=== PATIENT | female | born 1945 | race Caucasian/White ===

== ENCOUNTER 2020-07-15 11:03 | Emergency (ER) | payer MEDICARE, SELFPAY ==
[2020-07-15 11:11] VITALS: BP 191/89; PULSE 60; RESP 18; TEMP 36.5; O2SAT 97; BMI 39.2
--- NOTE | 2020-07-15 11:55 | ED.EPISTAXIS ---
History of Present Illness General Chief Complaint: Epistaxis Stated Complaint: nose bleed Time Seen by Provider: 07/15/20 11:55 Source: patient Mode of arrival: ambulatory Limitations: no limitations History of Present Illness HPI Narrative: for the last month recurrent epistaxis that resolves at home Location: Yes right nares Onset/current episode: Yes hour(s) (4) Duration: Yes constant Pertinent past history: Yes history of previous nose bleed Context: Yes history of previous nose bleed and Yes warfarin use Treatment prior to arrival: Yes nose pinching and Yes head leaning forward Related Data Previous Rx's Medication Instructions Recorded amoxicillin-pot clavulanate 1 tab PO BID #3 tab 07/15/20 [Augmentin] hydrocodone-acetaminophen 1 tab PO Q6H PRN #12 tab 07/15/20 Allergies Allergy/AdvReac Type Severity Reaction Status Date / Time No Known Allergies Allergy Verified 07/15/20 11:59 Review of Systems Review of Systems: Constitutional : No Fever, No Chills ENT/Mouth : No Ear Pain, No Nasal Congestion, positive nose bleed Eyes: No Eye Pain, No Swelling, No Redness Cardiovascular : No Chest Pain, No SOB Respiratory : No Cough, No Sputum Gastrointestinal : No Nausea, No Vomiting, No Diarrhea Genitourinary : No Dysuria, No Hematuria Musculoskeletal : No joint pain, No Myalgias Skin : No Skin Lesions, No rash Neuro : No Weakness, No Numbness, No headache Psych : No Anxiety/Panic, No Depression Heme/Lymph: positive Bleeding,No Lymphadenopathy Endocrine : No Polyuria, No Polydipsia PMFSH Past Medical History Attestation statement: The following information was validated with the patient. Medical History Afib Asthma HLD (hyperlipidemia) HTN (hypertension) Pacemaker Surgical History S/P hip replacement Social History Social History (Updated 07/15/20 @ 12:09 by Kristen Bazzi DO) Smoking Status: Never smoker Advance Directives: No Advance Directives Information Provided: Yes Physical Exam Vital Signs: Vital Signs: Last Vital Signs Temp 97.9 F 07/15/20 12:00 Pulse 66 07/15/20 12:00 Resp 16 07/15/20 12:00 BP 166/69 H 07/15/20 12:00 Pulse Ox 99 07/15/20 12:00 Body Mass Index 39.2 Appearance: Alert. Oriented X3. No acute distress. Eyes: Pupils equal, round and reactive to light. ENT: scant ooze noted in posterior oropharynx, blue tongs in place, dried blood noted lower R nare Neck: Normal inspection. Neck supple. CVS: Normal heart rate and rhythm. Pulses normal. Respiratory: No respiratory distress. Breath sounds normal. Abdomen: Soft and nontender. Skin: Skin warm and dry. Normal skin color. Normal skin turgor. Extremities: No lower extremity edema. No calf ttp Neuro: Oriented X 3. No motor deficit. No sensory deficit. Course Course Course Narrative: PO vitamin K given degree of bleeding and hold coumadin today and tomorrow patient really wants to avoid packing - she is only have scant serous drainage at this time very faint clear pink material scant R nares - will go home with tongs she does not want packing, will follow up with PCP prior to DC patient had very faint clear pink drainage - she is nervous and wants to be packed will pack nose Procedures Epistaxis Control Time Out Performed: Yes Nostril: Yes right Nose prepped with: Yes oxymetazoline and Yes other (tranexamic acid) Direct inspection: Yes anterior source identified Direct inspection method: Yes headlamp Clots removed by: Yes manually Epistaxis treatment: Yes TXA soaked gauze, Yes silver nitrate cautery and Yes inflatable pack Results of treatment: Yes bleeding controlled Complications: Yes none MDM - Epistaxis MDM Narrative Medical decision making narrative: 75 yo female on coumadin for afib here with 1 month of nose bleeds - today the longest x 4 hours, doing well with tongs, will attempt afrin and topical tranexamic acid then nasal exam - may need packing, labs ordered Lab Data Result diagrams: 07/15/20 12:51 07/15/20 12:51 Labs: Lab Results 07/15/20 07/15/20 07/15/20 Range/Units 12:51 12:51 12:51 WBC 8.9 (4.8-10.8) X10*3/uL RBC 3.52 L (4.20-5.50) X10*6/uL Hgb 10.6 L (12.0-16.0) g/dl Hct 31.7 L (37-47) % MCV 90.1 (80-98) fL MCH 30.1 (27.0-33.0) pg MCHC 33.4 (31.0-35.0) g/dl RDW 14.7 (11.0-16.0) % Plt Count 173 (160-400) X10*3/uL MPV 10.3 (9.4-12.3) fL Immature Gran % (Auto) 0.6 H (0.0-0.4) % Neut % (Auto) 77.5 H (45-73) % Lymph % (Auto) 12.6 L (20-40) % [place] % (Auto) 7.7 (2-11) % Eos % (Auto) 1.3 (0-4) % Baso % (Auto) 0.3 (0-2) % Lymph # (Auto) 1.1 L (1.2-4.9) X10*3/uL [place] # (Auto) 0.7 (0.1-1.2) X10*3/uL Eos # (Auto) 0.1 (0.0-0.4) X10*3/uL Baso # (Auto) 0.0 (0.0-0.2) X10*3/uL Abs Immat Gran (auto) 0.05 H (0.00-0.03) X10*3/uL Absolute Neuts (auto) 6.9 (2.0-8.3) X10*3/uL Absolute Nucleated RBC 0.000 (0.0-0.012) X10*3/uL Nucleated RBC % (auto) 0.0 (0.0-0.2) /100WBC PT 51.0 H (10.8-13.0) SEC INR 4.2 H (0.9-1.1) APTT 53.3 H (24.1-38.0) SEC Sodium 143 (135-145) mmol/L Potassium 3.7 (3.3-5.1) mmol/l Chloride 107 (96-108) mmol/L Carbon Dioxide 23 (22-29) mmol/L Anion Gap 17 (12-20) BUN 14 (9-16) mg/dL Creatinine 0.76 (0.5-1.4) mg/dL Estim Creat Clear Calc 65.4 Estimated GFR > 60 Random Glucose 113 (60-115) mg/dL Calcium 9.2 (8.4-10.2) mg/dL Discharge Plan Discharge Clinical Impression: Epistaxis Patient Disposition: Home, Self-Care Instructions: Nosebleed (ED) Additional Instructions: return to ED for any worsening symptoms or concerns use tongs if you bleed again, no NOSE BLOWING x 3 days INR 4 - given PO vitamin K no coumadin today, call your coumadin provider tomorrow need recheck INR but likely hold coumadin for 2 days nasal packing comes out in 3 days - COME TO THE ED FOR REMOVAL Prescriptions: New amoxicillin-pot clavulanate [Augmentin] 875-125 mg tablet 1 tab PO BID Qty: 3 RF: 0 hydrocodone-acetaminophen 5-325 mg tablet 1 tab PO Q6H PRN (Reason: pain) Qty: 12 RF: 0 Referrals: Riley Desir MD [Primary Care Provider] - 1 day (management of coumadin)
[2020-07-15 12:00] VITALS: BP 166/69; PULSE 66; RESP 16; TEMP 36.6; O2SAT 99
[2020-07-15] MEDS: Tranexamic Acid 1,000 MG/10 ML VIAL 500 MG INTRANASAL (12:37)
[2020-07-15] MEDS: Oxymetazoline HCl 0.05 % Nasal 15 ML SPRAY 2 SPRAY NOSTRIL-B (12:38)
[2020-07-15 12:55] LABS: MANUAL DIFF FLAG NO
[2020-07-15 12:57] LABS: Basophils Percent Auto 0.3 % (0-2); Eosinophils Absolute Auto 0.1 X10*3/uL (0.0-0.4); Eosinophils Percent Auto 1.3 % (0-4); Hematocrit 31.7 % (37-47); Hemoglobin 10.6 g/dl (12.0-16.0); Imm Gran Abs Auto 0.05 X10*3/uL (0.00-0.03); Imm Gran Pct Auto 0.6 % (0.0-0.4); Lymphocytes Absolute Auto 1.1 X10*3/uL (1.2-4.9); Lymphocytes Percent Auto 12.6 % (20-40); Mean Corpuscular HGB Conc 33.4 g/dl (31.0-35.0); Mean Corpuscular Hemoglobin 30.1 pg (27.0-33.0); Mean Corpuscular Volume 90.1 fL (80-98); Mean Platelet Volume 10.3 fL (9.4-12.3); Monocytes Absolute Auto 0.7 X10*3/uL (0.1-1.2); Monocytes Percent Auto 7.7 % (2-11); Neutrophils Absolute Auto 6.9 X10*3/uL (2.0-8.3); Neutrophils Percent Auto 77.5 % (45-73); Platelet Count 173 X10*3/uL (160-400); Red Blood Count 3.52 X10*6/uL (4.20-5.50); Red Cell Distribution Width 14.7 % (11.0-16.0); White Blood Count 8.9 X10*3/uL (4.8-10.8)
[2020-07-15 13:06] LABS: INTERNATIONAL NORM RATIO 4.2 (0.9-1.1)
[2020-07-15 13:09] LABS: Partial Thromboplastin Time 53.3 SEC (24.1-38.0)
[2020-07-15 13:37] LABS: Anion Gap 17 (12-20); Blood Urea Nitrogen 14 mg/dL (9-16); Calcium 9.2 mg/dL (8.4-10.2); Carbon Dioxide 23 mmol/L (22-29); Chloride 107 mmol/L (96-108); Creatinine Clr Calc Pharmacy 65.4; Estimated Glomerular Filt Rate > 60; Glucose Random 113 mg/dL (60-115); Potassium 3.7 mmol/l (3.3-5.1); Sodium 143 mmol/L (135-145)
--- NOTE | 2020-07-15 15:14 | PC.NURSE ---
upon discharge noted serous sang spotting to napkin. patient states worried about going home and bleeding continues. Provider aware and will discuss again the option of nasal blockage.
== END 2020-07-15 15:45 | disposition home or self-care (01) ==
PROVIDERS: Emergency Provider Emergency Medicine; PCP Internal Medicine
DX: R04.0 Epistaxis (principal); I10 Essential (primary) hypertension; I48.91 Unspecified atrial fibrillation; Z95.0 Presence of cardiac pacemaker; Z79.01 Long term (current) use of anticoagulants
CPT/HCPCS: 30901; 36415; 80048; 85025; 85610; 85730; 99283

== ENCOUNTER 2023-12-08 10:45 | Outpatient (REF) | payer MEDICARE, SELFPAY ==
--- NOTE | ~2023-12-08 | MR_ITS ---
EXAMINATION: MR BRAIN WITHOUT CONTRAST CLINICAL INFORMATION: Mild dementia. COMPARISON: None available. TECHNIQUE: MRI of the brain was obtained using routine sequences without contrast. FINDINGS: No focal restricted diffusion is demonstrated to suggest acute or subacute cerebral ischemia. No evidence of acute or chronic hemorrhagic products on heme-sensitive imaging. Small chronic lacunar infarct of the left cerebellar hemisphere. Scattered and partially confluent periventricular, deep white matter, and brainstem T2 FLAIR hyperintensities consistent with moderate underlying microangiopathy. Proportional prominence of the ventricles and sulcal spaces without evidence of obstructive hydrocephalus. No abnormal mass effect. No midline shift. Normal appearance of the pituitary gland. Normal positioning of the cerebellar tonsils. Normal arterial and venous vascular flow voids are present. Normal, homogeneous marrow signal. There is a 1.8 cm cyst in the left fossa of [place]. 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 Mild mucosal thickening of the paranasal sinuses. Moderate leftward nasal septal deviation. No signal abnormalities within the mastoids. Bilateral lens extractions. MR/MR head/brain wo con IMPRESSION: 1. No acute intracranial abnormalities. 2. Moderate underlying microangiopathy and generalized cerebral volume loss. Small chronic lacunar infarct of the left cerebellar hemisphere.
== END 2023-12-08 10:46 | disposition home or self-care (01) ==
LOC: HO.MRI 10:45
PROVIDERS: PCP Internal Medicine; Visit Provider Psychiatry & Neurology Neurology
DX: F03.90 Unspecified dementia, unspecified severity, without behavioral disturbance, psychotic disturbance, mood disturbance, and anxiety (principal)
CPT/HCPCS: 70551

== ENCOUNTER 2023-12-15 10:33 | Outpatient (REF) | payer MEDICARE, SELFPAY ==
[2023-12-15 12:49] LABS: Vitamin B12 287 pg/mL (200-900)
== END 2023-12-15 10:34 | disposition home or self-care (01) ==
LOC: HO.LAB 10:33
PROVIDERS: PCP Internal Medicine; Visit Provider Psychiatry & Neurology Neurology
DX: G30.9 Alzheimer's disease, unspecified (principal)
CPT/HCPCS: 36415; 82607

== ENCOUNTER 2024-07-21 16:30 | Inpatient (IN) | payer MEDICARE, SELFPAY ==
[2024-07-21] VITALS (11 sets, daily range): BP systolic 102–156; BP diastolic 48–77; PULSE 59–75; RESP 13–23; TEMP 36.6–37.4; O2SAT 96–99; BMI 36.3; BMI 36.5
--- NOTE | ~2024-07-21 | US_ITS ---
CLINICAL HISTORY: Increased edema and mild tenderness of the calf Venous duplex ultrasound right lower extremity Comparison: None Findings: The visualized deep veins are fully compressible with normal Doppler color flow and spectral tracings. 75 mm popliteal cyst. IMPRESSION: 1. Negative for right lower extremity deep vein thrombosis. This document has been electronically signed by: Nael Tang MD on 07/21/2024 19:38:56
--- NOTE | ~2024-07-21 | XR_ITS ---
CLINICAL HISTORY: cough 2 views chest Comparison: None Findings: Cardiac and mediastinal contours are within normal limits. Mild interstitial prominence with scattered peribronchial thickening. No focal consolidation. No effusion. No pneumothorax. No acute osseous finding. Impression: Mild interstitial prominence with scattered peribronchial thickening. No focal consolidation. This document has been electronically signed by: Kavon Laureano MD on 07/21/2024 17:17:13
--- NOTE | 2024-07-21 16:48 | ECG_ITS ---
Test Reason : upper resp Blood Pressure : */* mmHG Vent. Rate : 60 BPM Atrial Rate : 58 BPM P-R Int : * ms QRS Dur : 174 ms QT Int : 468 ms P-R-T Axes : * 215 94 degrees QTcB Int : 468 ms Ventricular-paced rhythm possible atrial pacing in some beats Abnormal ECG No previous ECGs available Referred By: Chana Bazzi Electronically Signed By: HARPREET BARNETT
--- NOTE | 2024-07-21 16:48 | ED.URI ---
HPI - URI/Sore Throat General Chief Complaint: Upper Respiratory Symptoms Stated Complaint: sob h/o of copd sent for [facility] Time Seen by Provider: 07/21/24 16:59 Source: patient Mode of arrival: ambulatory Limitations: no limitations History of Present Illness ED Provider: Eric Melendez DO HPI Narrative: 79 yo female with PMH of afib s/p Watchman 4 years ago, COPD no O2 use at home, HLD, HTN and pacemaker presents to the ED with daughter due to over 2 weeks of cough with development of dyspnea on exertion over the last few days. Patient states the cough is productive of clear sputum. She denies fevers or chills. She reports urinary frequency without dysuria or hematuria. She denies chest discomfort, abdominal pain, vomiting, nausea or diarrhea. She reports a positive sick contact in her who has bronchitis. Daughter states she was only able to ambulate several steps without feeling short of breath today. She has been taking her maintenance inhaler at home. She is not smoke tobacco. Related Data Previous Rx's ?Medication ?Instructions ?Recorded amoxicillin 875 mg-potassium 1 tab PO BID #3 tabs 07/15/20 clavulanate 125 mg tablet (Augmentin) hydrocodone 5 mg-acetaminophen 325 1 tab PO Q6H PRN pain #12 tabs 07/15/20 mg tablet Allergies Allergy/AdvReac Type Severity Reaction Status Date / Time No Known Allergies Allergy Verified 07/21/24 16:50 Review of Systems Review of Systems: Yes all other systems are reviewed and are negative PMFSH Past Medical History Medical History Afib Asthma HLD (hyperlipidemia) HTN (hypertension) Pacemaker Surgical History S/P hip replacement Social History Social History (Updated 07/15/20 @ 12:09 by Chana Bazzi DO) Smoked in Last 30 Days: No Use of substances other than those prescribed or required for medical reasons: No Advance Directives: No Advance Directives Information Provided: No Do you have a plan to hurt others: No Plan Physical Exam Vital Signs: Vital Signs: Last Vital Signs Temp 99.4 F 07/21/24 18:16 Pulse 61 07/21/24 18:36 Resp 22 H 07/21/24 18:36 BP 127/52 L 07/21/24 18:16 Pulse Ox 98 07/21/24 18:22 O2 Del Method Room Air 07/21/24 18:22 BMI result Body Mass Index 36.3 Constitutional: ?Alert, oriented, speaking in full sentences but dyspneic at rest HEENT: ?Normocephalic, atraumatic. ?Moist mucous membranes Eyes: ?PERRL, EOMI Neck: ?Supple, nontender Chest: ?No chest wall tenderness Respiratory: ?Tachypnea, increased work of breathing, expiratory wheezing with prolonged expiratory phase throughout all lung marvin Cardio: ?Regular rate and rhythm, no murmur, 2+ radial and DP pulses symmetrically GI: ?Soft, nondistended, nontender Back: ?Normal range of motion, nontender Skin: ?No rash, no lesions Neuro: ?Alert and oriented to person, place and time, moves all 4 extremities, no focal deficits Extremities: ?No swelling or tenderness, full range of motion Psych: ?Calm, alert and cooperative, appropriate behavior Course Course Course Narrative: 79 yo female with PMH of afib s/p Watchman 4 years ago, COPD no O2 use at home, HLD, HTN, no recent sick contacts, no travel, also has bronchitis ( gave it to him), clear and white color, no increased leg swelling she also has a sore lymph node in neck on R side as well as dysuria and urinary frequency. At this time will need basic labs, viral panel, urine study, CXR, EKG, start on nebs, IV steroids, IV ceftriaxone suspect COPD exacerbation along with possible URI this is a RAPID medical screening exam the rest of the history and physical exam is to be done by the main provider. Medications Administered Discontinued Medications Generic Name Dose Route Start Last Admin Trade Name Freq PRN Reason Stop Dose Admin Albuterol Sulfate 2.5 mg/ 5 mg 07/21/24 18:36 07/21/24 18:41 Albuterol Sulfate 2.5 mg INHALE 07/21/24 18:37 5 mg ONCE ONE Administration Ceftriaxone Sodium 1 gm 07/21/24 16:54 07/21/24 17:21 Ceftriaxone Sodium 1 Gm Vial IVPUSH 07/21/24 16:55 1 gm ONCE ONE Administration Albuterol Sulfate 5 mg/ 0 mg 07/21/24 17:13 07/21/24 17:16 Albuterol/Ipratropium 3 ml INHALE 07/21/24 17:14 7.5 each ONCE ONE Administration Methylprednisolone Sodium Succinate 60 mg 07/21/24 16:50 07/21/24 17:12 Methylprednisolone Sod Succ 125 Mg/2 Ml Vial IVPUSH 07/21/24 16:51 60 mg ONCE ONE Administration Medical Decision Making Medical Decision Making [facility] Narrative: Patient presenting with dyspnea on exertion and cough as well as urinary frequency. Differential diagnosis includes pneumonia, cystitis, COVID, influenza or other viral syndrome. The patient is started on methylprednisolone ceftriaxone as well as bronchodilator therapy with improvement on re-evaluation. She still has some increased work of breathing. Chest x-ray shows no signs of pneumonia. Urinalysis shows evidence of cystitis. The patient is also positive for influenza A and has been provided Tamiflu. On repeat evaluation she does endorse some right lower extremity edema. Ultrasound shows no signs of DVT. Do not suspect PE at this time as well. Given her work of breathing, age and comorbidities, the patient will be admitted for further management for influenza. She also has hyponatremia to 128 to be re-evaluated on repeat labs. Her venous blood gases unremarkable. Admission/Observation Consideration of admission/observation: Escalation of care including admission/observation considered Lab Data 07/21/24 17:10 07/21/24 17:10 Labs: Lab Results 07/21/24 07/21/24 07/21/24 Range/Units 17:08 17:09 17:10 WBC 5.5 (4.8-10.8) X10*3/uL RBC 3.60 L (4.20-5.50) X10*6/uL Hgb 10.9 L (12.0-16.0) g/dl Hct 29.7 L (37.0-47.0) % MCV 82.5 (80.0-98.0) fL MCH 30.3 (27.0-33.0) pg MCHC 36.7 H (31.0-35.0) g/dl RDW 13.9 (11.0-16.0) % Plt Count 163 (160-400) X10*3/uL MPV 10.4 (9.4-12.3) fL Immature Gran % (Auto) 0.4 (0.0-0.4) % Neut % (Auto) 76.1 H (45-73) % Lymph % (Auto) 12.7 L (20-40) % [place] % (Auto) 8.9 (2-11) % Eos % (Auto) 1.5 (0-4) % Baso % (Auto) 0.4 (0-2) % Lymph # (Auto) 0.7 L (1.2-4.9) X10*3/uL [place] # (Auto) 0.5 (0.1-1.2) X10*3/uL Eos # (Auto) 0.1 (0.0-0.4) X10*3/uL Baso # (Auto) 0.0 (0.0-0.2) X10*3/uL Abs Immat Gran (auto) 0.02 (0.00-0.03) X10*3/uL Absolute Neuts (auto) 4.2 (2.0-8.3) x10*3/uL Absolute Nucleated RBC 0.000 (0.0-0.012) X10*3/uL Nucleated RBC % (auto) 0.0 (0.0-0.2) /100WBC Hold Blue Top VBG pH (7.32-7.43) VBG pCO2 mmHg VBG pO2 mmHg VBG HCO3 (22-26) mmol/L VBG O2 Saturation % VBG Base Excess mmol/L Sodium 128 L (135-145) mmol/L Potassium 3.3 (3.3-5.1) mmol/L Chloride 97 (96-108) mmol/L Carbon Dioxide 20 L (22-29) mmol/L Anion Gap 14 (12-20) BUN 11 (9-16) mg/dL Creatinine 0.72 (0.5-1.4) mg/dL Estim Creat Clear Calc 62.1 Estimated GFR > 60 Random Glucose 138 H (60-115) mg/dL Lactic Acid 1.2 (0.5-2.0) mmol/L Calcium 8.6 D (8.4-10.2) mg/dL Magnesium 1.6 (1.6-2.6) mg/dL Total Bilirubin 0.9 (0.0-1.0) mg/dL Direct Bilirubin 0.3 (0.0-0.5) mg/dL AST 47 H (5-31) U/L ALT 27 (0-31) U/L Alkaline Phosphatase 62 (39-117) U/L Troponin I High Sens 10.7 (<3.5-17.0) ng/L B-Natriuretic Peptide 228 H (<100) pg/mL Total Protein 7.4 (6.5-8.0) g/dL Albumin 4.4 (3.5-5.0) g/dL Urine Color Urine Appearance Urine pH (5.0-9.0) Ur Specific Valentine (1.005-1.025) Urine Protein (Neg-Trace) mg/dL Urine Glucose (UA) (Negative) mg/dL Urine Ketones (Negative) mg/dL Urine Blood (Negative) Urine Nitrite (Negative) Ur Leukocyte Esterase (Negative) Urine RBC (0-2) /HPF Urine WBC (0-5) /HPF Ur Squamous Epith Cells (0-2) /HPF Urine Bacteria (None Seen) Hyaline Casts (0-2) /LPF Influenza Type A (PCR) POSITIVE A (Negative) Influenza Type B (PCR) NEGATIVE (Negative) RSV RNA Qual (PCR) NEGATIVE (Negative) SARS-CoV-2 RNA (RT-PCR) NEGATIVE (Negative) S. pyogenes GrpA ROSANNA (Negative) 07/21/24 07/21/24 07/21/24 Range/Units 17:16 17:19 17:51 WBC (4.8-10.8) X10*3/uL RBC (4.20-5.50) X10*6/uL Hgb (12.0-16.0) g/dl Hct (37.0-47.0) % MCV (80.0-98.0) fL MCH (27.0-33.0) pg MCHC (31.0-35.0) g/dl RDW (11.0-16.0) % Plt Count (160-400) X10*3/uL MPV (9.4-12.3) fL Immature Gran % (Auto) (0.0-0.4) % Neut % (Auto) (45-73) % Lymph % (Auto) (20-40) % [place] % (Auto) (2-11) % Eos % (Auto) (0-4) % Baso % (Auto) (0-2) % Lymph # (Auto) (1.2-4.9) X10*3/uL [place] # (Auto) (0.1-1.2) X10*3/uL Eos # (Auto) (0.0-0.4) X10*3/uL Baso # (Auto) (0.0-0.2) X10*3/uL Abs Immat Gran (auto) (0.00-0.03) X10*3/uL Absolute Neuts (auto) (2.0-8.3) x10*3/uL Absolute Nucleated RBC (0.0-0.012) X10*3/uL Nucleated RBC % (auto) (0.0-0.2) /100WBC Hold Blue Top SEE NOTE VBG pH 7.46 H (7.32-7.43) VBG pCO2 31 mmHg VBG pO2 43 mmHg VBG HCO3 22 (22-26) mmol/L VBG O2 Saturation 73.0 % VBG Base Excess -0.4 mmol/L Sodium (135-145) mmol/L Potassium (3.3-5.1) mmol/L Chloride (96-108) mmol/L Carbon Dioxide (22-29) mmol/L Anion Gap (12-20) BUN (9-16) mg/dL Creatinine (0.5-1.4) mg/dL Estim Creat Clear Calc Estimated GFR Random Glucose (60-115) mg/dL Lactic Acid (0.5-2.0) mmol/L Calcium (8.4-10.2) mg/dL Magnesium (1.6-2.6) mg/dL Total Bilirubin (0.0-1.0) mg/dL Direct Bilirubin (0.0-0.5) mg/dL AST (5-31) U/L ALT (0-31) U/L Alkaline Phosphatase (39-117) U/L Troponin I High Sens (<3.5-17.0) ng/L B-Natriuretic Peptide (<100) pg/mL Total Protein (6.5-8.0) g/dL Albumin (3.5-5.0) g/dL Urine Color Yellow Urine Appearance Clear Urine pH 6.0 (5.0-9.0) Ur Specific Valentine 1.010 (1.005-1.025) Urine Protein 100 (2+) H (Neg-Trace) mg/dL Urine Glucose (UA) Negative (Negative) mg/dL Urine Ketones Negative (Negative) mg/dL Urine Blood Trace H (Negative) Urine Nitrite Negative (Negative) Ur Leukocyte Esterase Moderate (2+) H (Negative) Urine RBC 0-2 (0-2) /HPF Urine WBC 21-50 (0-5) /HPF Ur Squamous Epith Cells 0-2 (0-2) /HPF Urine Bacteria None Seen (None Seen) Hyaline Casts 3-5 (0-2) /LPF Influenza Type A (PCR) (Negative) Influenza Type B (PCR) (Negative) RSV RNA Qual (PCR) (Negative) SARS-CoV-2 RNA (RT-PCR) (Negative) S. pyogenes GrpA ROSANNA (Negative) 07/21/24 Range/Units 18:42 WBC (4.8-10.8) X10*3/uL RBC (4.20-5.50) X10*6/uL Hgb (12.0-16.0) g/dl Hct (37.0-47.0) % MCV (80.0-98.0) fL MCH (27.0-33.0) pg MCHC (31.0-35.0) g/dl RDW (11.0-16.0) % Plt Count (160-400) X10*3/uL MPV (9.4-12.3) fL Immature Gran % (Auto) (0.0-0.4) % Neut % (Auto) (45-73) % Lymph % (Auto) (20-40) % [place] % (Auto) (2-11) % Eos % (Auto) (0-4) % Baso % (Auto) (0-2) % Lymph # (Auto) (1.2-4.9) X10*3/uL [place] # (Auto) (0.1-1.2) X10*3/uL Eos # (Auto) (0.0-0.4) X10*3/uL Baso # (Auto) (0.0-0.2) X10*3/uL Abs Immat Gran (auto) (0.00-0.03) X10*3/uL Absolute Neuts (auto) (2.0-8.3) x10*3/uL Absolute Nucleated RBC (0.0-0.012) X10*3/uL Nucleated RBC % (auto) (0.0-0.2) /100WBC Hold Blue Top VBG pH (7.32-7.43) VBG pCO2 mmHg VBG pO2 mmHg VBG HCO3 (22-26) mmol/L VBG O2 Saturation % VBG Base Excess mmol/L Sodium (135-145) mmol/L Potassium (3.3-5.1) mmol/L Chloride (96-108) mmol/L Carbon Dioxide (22-29) mmol/L Anion Gap (12-20) BUN (9-16) mg/dL Creatinine (0.5-1.4) mg/dL Estim Creat Clear Calc Estimated GFR Random Glucose (60-115) mg/dL Lactic Acid (0.5-2.0) mmol/L Calcium (8.4-10.2) mg/dL Magnesium (1.6-2.6) mg/dL Total Bilirubin (0.0-1.0) mg/dL Direct Bilirubin (0.0-0.5) mg/dL AST (5-31) U/L ALT (0-31) U/L Alkaline Phosphatase (39-117) U/L Troponin I High Sens (<3.5-17.0) ng/L B-Natriuretic Peptide (<100) pg/mL Total Protein (6.5-8.0) g/dL Albumin (3.5-5.0) g/dL Urine Color Urine Appearance Urine pH (5.0-9.0) Ur Specific Valentine (1.005-1.025) Urine Protein (Neg-Trace) mg/dL Urine Glucose (UA) (Negative) mg/dL Urine Ketones (Negative) mg/dL Urine Blood (Negative) Urine Nitrite (Negative) Ur Leukocyte Esterase (Negative) Urine RBC (0-2) /HPF Urine WBC (0-5) /HPF Ur Squamous Epith Cells (0-2) /HPF Urine Bacteria (None Seen) Hyaline Casts (0-2) /LPF Influenza Type A (PCR) (Negative) Influenza Type B (PCR) (Negative) RSV RNA Qual (PCR) (Negative) SARS-CoV-2 RNA (RT-PCR) (Negative) S. pyogenes GrpA ROSANNA Negative (Negative) Independent Interpretation I performed an independent interpretation of an: EKG Interpretation: Ventricular paced rhythm at 60 beats per minute, not meeting Sgarbossa criteria, unremarkable intervals, no prior for comparison. Discharge Plan Discharge Clinical Impression: Influenza, Cystitis, Acute hyponatremia Patient Disposition: Admitted As Inpatient Prescriptions: No Action amoxicillin-pot clavulanate [Augmentin] 875-125 mg tablet 1 tab PO BID Qty: 3 0RF hydrocodone-acetaminophen 5-325 mg tablet 1 tab PO Q6H PRN (Reason: pain) Qty: 12 0RF Print Language: [place]
[2024-07-21] MEDS: methylPREDNISolone Sod Succ 125 MG/2 ML VIAL 60 MG IVPUSH (17:12)
[2024-07-21 17:15] LABS: MANUAL DIFF FLAG NO
[2024-07-21] MEDS: Albuterol Sulfate 5 MG, Albuterol/Iprat 2.5/0.5MG 3 ML 3 ML INHALE (17:16)
[2024-07-21] MEDS: cefTRIAXone sodium 1 GM VIAL IVPUSH (17:21)
[2024-07-21 17:27] LABS: VBG Base Excess -0.4 mmol/L; VBG HCO3 22 mmol/L (22-26); VBG pCO2 31 mmHg; VBG pH 7.46 (7.32-7.43); VBG pO2 43 mmHg
[2024-07-21 17:27] LABS: Venous Blood Gas Refer to POC result
[2024-07-21 17:30] LABS: Basophils Percent Auto 0.4 % (0-2); Eosinophils Absolute Auto 0.1 X10*3/uL (0.0-0.4); Eosinophils Percent Auto 1.5 % (0-4); Hematocrit 29.7 % (37.0-47.0); Hemoglobin 10.9 g/dl (12.0-16.0); Imm Gran Abs Auto 0.02 X10*3/uL (0.00-0.03); Imm Gran Pct Auto 0.4 % (0.0-0.4); Lymphocytes Absolute Auto 0.7 X10*3/uL (1.2-4.9); Lymphocytes Percent Auto 12.7 % (20-40); Mean Corpuscular HGB Conc 36.7 g/dl (31.0-35.0); Mean Corpuscular Hemoglobin 30.3 pg (27.0-33.0); Mean Corpuscular Volume 82.5 fL (80.0-98.0); Mean Platelet Volume 10.4 fL (9.4-12.3); Monocytes Absolute Auto 0.5 X10*3/uL (0.1-1.2); Monocytes Percent Auto 8.9 % (2-11); Neutrophils Absolute Auto 4.2 x10*3/uL (2.0-8.3); Neutrophils Percent Auto 76.1 % (45-73); Platelet Count 163 X10*3/uL (160-400); Red Cell Distribution Width 13.9 % (11.0-16.0); White Blood Count 5.5 X10*3/uL (4.8-10.8)
--- NOTE | 2024-07-21 17:51 | PC.NURSE ---
straight catheterization performed - 75ml of clear, pale yellow, normal smelling urine noted immediately post output. urine obtained/sent to lab.
[2024-07-21 17:54] LABS: Lactic Acid 1.2 mmol/L (0.5-2.0)
[2024-07-21 18:01] LABS: Appearance Urine Clear; Color Urine Yellow; Glucose Urine UA Negative (Negative); Leukocyte Esterase Urine Moderate (2+) (Negative); Nitrite Urine Negative (Negative); UMIC TRIGGER UACC YES; Urine Blood Trace (Negative); Urine Ketones Negative (Negative); Urine Protein 100 (2+) mg/dL (Neg-Trace)
[2024-07-21 18:01] LABS: B Type Natriuretic Peptide 228 pg/mL (<100); Troponin-I High Sensitivity 10.7 ng/L (<3.5-17.0)
[2024-07-21 18:01] LABS: Alanine Aminotransferase 27 U/L (0-31); Albumin Level 4.4 g/dL (3.5-5.0); Alkaline Phosphatase 62 U/L (39-117); Anion Gap 14 (12-20); Aspartate Amino Transferase 47 U/L (5-31); Bilirubin Direct 0.3 mg/dL (0.0-0.5); Bilirubin Total 0.9 mg/dL (0.0-1.0); Blood Urea Nitrogen 11 mg/dL (9-16); Calcium 8.6 mg/dL (8.4-10.2); Carbon Dioxide 20 mmol/L (22-29); Chloride 97 mmol/L (96-108); Creatinine Clr Calc Pharmacy 62.1; Estimated Glomerular Filt Rate > 60; Glucose Random 138 mg/dL (60-115); Magnesium 1.6 mg/dL (1.6-2.6); Potassium 3.3 mmol/L (3.3-5.1); Sodium 128 mmol/L (135-145); Total Protein 7.4 g/dL (6.5-8.0)
[2024-07-21 18:18] LABS: Influenza A PCR POSITIVE (Negative); Influenza B PCR NEGATIVE (Negative); Resp Syncy Virus RNA Qual PCR NEGATIVE (Negative); SARS COV2 PCR INHOUSE NEGATIVE (Negative)
[2024-07-21 18:26] LABS: Bacteria Urine None Seen (None Seen); RBC Urine 0-2 /HPF (0-2); Squamous Epithelial Cell Urine 0-2 /HPF (0-2); UACC Culture Trigger YES; WBC Urine 21-50 /HPF (0-5)
[2024-07-21] MEDS: Albuterol Sulfate 2.5 MG, Albuterol Sulfate (0.083%) 2.5 MG 5 MG INHALE (18:41)
[2024-07-21 19:05] LABS: IDNOW Serial# 08D9AD1C; Strep A Nucleic Acid Negative (Negative)
--- NOTE | 2024-07-21 19:51 | P.HPHOSP_ITS ---
History of Present Illness Date of Service: 07/21/24 Attending physician on admission: Tigist Wallace Chief Complaint: SOB Pt is a 79-year-old female with a PMH significant for?persistent AFib s/p ablations w/Watchman and pacemaker in place, asthma/COPD overlap syndrome not on home O2, HTN, HLD, peripheral neuropathy, chronic lower extremity edema, and GERD who presents to the ED with?SOB, ZHONG, and persistent cough x2 weeks. Cough has been occasionally productive of white and clear sputum. No fever or chills. Symptoms have been ongoing the past couple of weeks though pt has been experiencing increased fatigue and difficulty sleeping. Today she reached her ?breaking point? and presented to urgent care who recommended further treatment and evaluation at the ED due to severity of patient's symptoms. Pt apparently was very dyspneic just with ambulating to the ED. Had had reduced p.o. intake, but no nausea, vomiting, abdominal pain. Endorses polyuria but no dysuria. In the ED pt was tachypneic up to 23, otherwise vitals stable and WNL. Pt is satting at 98% on RA. Labs were significant for testing positive for influenza type a, sodium 128, AST 47, and BNP elevated at 228 (baseline unknown). Stable normocytic anemia of 10.9/29.7. Renal function baseline. UA questionable for UTI with moderate leukocyte esterase and WBCs 21-50. CXR showed mild interstitial prominence with scattered peribronchial thickening without focal consolidation. Venous duplex of lower extremities negative for DVTs bilaterally. EKG demonstrated ventricular paced rhythm without evidence of significant ST elevations or depressions. Pt was treated with Solu-Medrol, DuoNebs, and ceftriaxone. Pt will be admitted to the hospital for treatment and further evaluation of acute asthma/COPD exacerbation in the setting of influenza type a infection. Review of Systems 2 Review of Systems: Negative except for that which is stated in the [facility] Medical History Pacemaker HTN (hypertension) HLD (hyperlipidemia) Asthma Afib Surgical History S/P hip replacement Social History Smoked in Last 30 Days: No Use of substances other than those prescribed or required for medical reasons: No Advance Directives: No Advance Directives Information Provided: No Do you have a plan to hurt others: No Plan Meds Allergies Allergy/AdvReac Type Severity Reaction Status Date / Time No Known Allergies Allergy Verified 07/21/24 16:50 Active Medications: Current Medications Acetaminophen (Acetaminophen 325 Mg Tablet) 650 mg PO Q6H PRN PRN Reason: Pain, Mild 1-3,fever,headache Albuterol/Ipratropium (Albuterol/Iprat 2.5/0.5mg 3 Ml Ampul.Neb) 3 ml INHALE RQ4H WHILE AWAKE [facility]ICA Albuterol/Ipratropium (Albuterol/Iprat 2.5/0.5mg 3 Ml Ampul.Neb) 3 ml INHALE RQ4H WHILE AWAKE PRN PRN Reason: Shortness of Breath/Wheezing Calcium Carbonate (Calcium Carbonate 750 Mg Tab.Chew) 750 mg PO Q4H PRN PRN Reason: Heartburn Enoxaparin Sodium (Enoxaparin Sodium 40 Mg/0.4 Ml Syringe) 40 mg SUBCUT Q24H [facility] Guaifenesin/Codeine Phosphate (Guaifen/Codeine Sf 200/20/10ml 10 Ml Liquid) 10 ml PO Q4H PRN PRN Reason: Cough Magnesium Hydroxide (Milk Of Magnesia 30 Ml Oral.Susp) 30 ml PO DAILY PRN PRN Reason: Constipation Melatonin (Melatonin 3 Mg Tablet) 6 mg PO BEDTIME PRN PRN Reason: Insomnia Methylprednisolone Sodium Succinate (Methylprednisolone Sod Succ 40 Mg/Ml Vial) 40 mg IVPUSH Q12H [facility] Ondansetron HCl (Ondansetron Hcl 4 Mg/2 Ml Vial) 4 mg IVPUSH Q8H PRN PRN Reason: Nausea and Vomiting Oseltamivir Phosphate (Oseltamivir Phosphate 75 Mg Capsule) 75 mg PO Q12H PATRICA Stop: 07/26/24 09:01 Sodium Chloride (0.9 % Sodium Chloride Flush 3 Ml Syringe) 3 ml IVFLUSH QSHIFT [facility] Physical Exam 2 Vital Signs and Narrative: Vital Signs: Last Vital Signs Temp 99.4 F 07/21/24 18:16 Pulse 61 07/21/24 18:36 Resp 22 H 07/21/24 18:36 BP 127/52 L 07/21/24 18:16 Pulse Ox 98 07/21/24 18:22 O2 Del Method Room Air 07/21/24 18:22 BMI result Body Mass Index 36.3 Constitutional: Alert, in no acute distress. Mental Status: Oriented to person, place and time. Eyes: Pupils are equal, round, and reactive to light. Ear, Nose, and Throat: Oropharynx clear, mucous membranes moist. Ears and nose without deformities. Trachea midline. Respiratory: Diffuse bilateral wheezing. Cardiovascular: S1, S2 regular. No murmurs, rubs, or gallops. Gastrointestinal: Abdomen soft, non-tender, non-distended. Normal bowel sounds. Neurologic: Cranial nerves II-XII are grossly intact bilaterally. No focal neurological deficits. Moves all extremities spontaneously. Skin: Warm, dry. Extremities: No edema. No right calf tenderness. Psychiatric: Normal mood and affect. Results Labs 07/21/24 17:10 07/21/24 17:10 Labs: Laboratory Results - last 24 hr 07/21/24 07/21/24 07/21/24 17:08 17:09 17:10 MCV 82.5 MCH 30.3 MCHC 36.7 H RDW 13.9 Plt Count 163 MPV 10.4 Immature Gran % (Auto) 0.4 Neut % (Auto) 76.1 H Lymph % (Auto) 12.7 L [place] % (Auto) 8.9 Eos % (Auto) 1.5 Baso % (Auto) 0.4 Lymph # (Auto) 0.7 L [place] # (Auto) 0.5 Eos # (Auto) 0.1 Baso # (Auto) 0.0 Abs Immat Gran (auto) 0.02 Absolute Neuts (auto) 4.2 Absolute Nucleated RBC 0.000 Nucleated RBC % (auto) 0.0 Hold Blue Top VBG pH VBG pCO2 VBG pO2 VBG HCO3 VBG O2 Saturation VBG Base Excess Anion Gap 14 Estim Creat Clear Calc 62.1 Estimated GFR > 60 Random Glucose 138 H Lactic Acid 1.2 Calcium 8.6 D Magnesium 1.6 Total Bilirubin 0.9 Direct Bilirubin 0.3 AST 47 H ALT 27 Alkaline Phosphatase 62 Troponin I High Sens 10.7 B-Natriuretic Peptide 228 H Total Protein 7.4 Albumin 4.4 Urine Color Urine Appearance Urine pH Ur Specific [place] Urine Protein Urine Glucose (UA) Urine Ketones Urine Blood Urine Nitrite Ur Leukocyte Esterase Urine RBC Urine WBC Ur Squamous Epith Cells Urine Bacteria Hyaline Casts Influenza Type A (PCR) POSITIVE A Influenza Type B (PCR) NEGATIVE RSV RNA Qual (PCR) NEGATIVE SARS-CoV-2 RNA (RT-PCR) NEGATIVE S. pyogenes GrpA ROSANNA 07/21/24 07/21/24 07/21/24 17:16 17:19 17:51 MCV MCH MCHC RDW Plt Count MPV Immature Gran % (Auto) Neut % (Auto) Lymph % (Auto) [place] % (Auto) Eos % (Auto) Baso % (Auto) Lymph # (Auto) [place] # (Auto) Eos # (Auto) Baso # (Auto) Abs Immat Gran (auto) Absolute Neuts (auto) Absolute Nucleated RBC Nucleated RBC % (auto) Hold Blue Top SEE NOTE VBG pH 7.46 H VBG pCO2 31 VBG pO2 43 VBG HCO3 22 VBG O2 Saturation 73.0 VBG Base Excess -0.4 Anion Gap Estim Creat Clear Calc Estimated GFR Random Glucose Lactic Acid Calcium Magnesium Total Bilirubin Direct Bilirubin AST ALT Alkaline Phosphatase Troponin I High Sens B-Natriuretic Peptide Total Protein Albumin Urine Color Yellow Urine Appearance Clear Urine pH 6.0 Ur Specific [place] 1.010 Urine Protein 100 (2+) H Urine Glucose (UA) Negative Urine Ketones Negative Urine Blood Trace H Urine Nitrite Negative Ur Leukocyte Esterase Moderate (2+) H Urine RBC 0-2 Urine WBC 21-50 Ur Squamous Epith Cells 0-2 Urine Bacteria None Seen Hyaline Casts 3-5 Influenza Type A (PCR) Influenza Type B (PCR) RSV RNA Qual (PCR) SARS-CoV-2 RNA (RT-PCR) S. pyogenes GrpA ROSANNA 07/21/24 18:42 MCV MCH MCHC RDW Plt Count MPV Immature Gran % (Auto) Neut % (Auto) Lymph % (Auto) [place] % (Auto) Eos % (Auto) Baso % (Auto) Lymph # (Auto) [place] # (Auto) Eos # (Auto) Baso # (Auto) Abs Immat Gran (auto) Absolute Neuts (auto) Absolute Nucleated RBC Nucleated RBC % (auto) Hold Blue Top VBG pH VBG pCO2 VBG pO2 VBG HCO3 VBG O2 Saturation VBG Base Excess Anion Gap Estim Creat Clear Calc Estimated GFR Random Glucose Lactic Acid Calcium Magnesium Total Bilirubin Direct Bilirubin AST ALT Alkaline Phosphatase Troponin I High Sens B-Natriuretic Peptide Total Protein Albumin Urine Color Urine Appearance Urine pH Ur Specific [place] Urine Protein Urine Glucose (UA) Urine Ketones Urine Blood Urine Nitrite Ur Leukocyte Esterase Urine RBC Urine WBC Ur Squamous Epith Cells Urine Bacteria Hyaline Casts Influenza Type A (PCR) Influenza Type B (PCR) RSV RNA Qual (PCR) SARS-CoV-2 RNA (RT-PCR) S. pyogenes GrpA ROSANNA Negative Assessment and Plan (1) Acute hyponatremia: Status: Acute (2) Influenza: Status: Acute (3) Asthma exacerbation: Status: Acute Plan Pt is a 79-year-old female with a PMH significant for?persistent AFib s/p ablations w/Watchman and pacemaker in place, asthma/COPD overlap syndrome not on home O2, HTN, HLD, peripheral neuropathy, chronic lower extremity edema, and GERD who presents to the ED with?SOB, ZHONG, and persistent cough x2 weeks. Pt will be admitted to the hospital for treatment and further evaluation of acute asthma/COPD exacerbation in the setting of influenza type a infection. Acute asthma/COPD overlap exacerbation in the setting of influenza infection No sepsis: Pt with viral infection Will treat with DuoNebs, Solu-Medrol, Tamiflu, and guaifenesin Monitor respiratory status Acute hyponatremia Patient's sodium 128 at time of presentation Likely secondary to diuretic use and reduced p.o. intake Hold furosemide Follow sodium Question of acute cystitis UA suggestive UTI, pt endorses polyuria Empirically treat with ceftriaxone, started 07/21/2024 No sepsis: Tachypnea, but no tachycardia, fever, or leukocytosis; lactic acid WNL Follow urine cultures Chronic lower leg edema Lasix on hold due to hyponatremia Monitor volume status HTN Continue losartan HLD Continue statin Peripheral neuropathy Continue gabapentin Memory impairment Continue donepezil GERD PPI Full Code Attending:?Dr. Wallace DVT Prophylaxis: Lovenox Pt will require a hospitalization of at least two nights for treatment of acute asthma/COPD exacerbation in the setting of acute influenza type a infection. Given duration and severity of patient's symptoms, as well as significant comorbidities that place her at risk of rapid deconditioning, she will require hospital level care for administration of IV steroids, breathing treatments, and close monitoring of labs and respiratory status. Quality Stroke Does the patient have a stroke diagnosis?: No VTE Prior VTE?: No VTE Risk Level:: Medical - moderate - high VTE Device Contraindication: Treatment Not Indicated VTE Drug Contraindication: N/A - Med Ordered
[2024-07-21] MEDS: Oseltamivir Phosphate 75 MG CAPSULE PO (20:18)
[2024-07-21] MEDS: Enoxaparin Sodium 40 MG/0.4 ML SYRINGE SUBCUT (20:18)
[2024-07-21] MEDS: Albuterol/Iprat 2.5/0.5MG 3 ML AMPUL.NEB INHALE (21:24)
[2024-07-22 03:14] VITALS: BP 128/67; PULSE 121; RESP 18; TEMP 37.4
[2024-07-22 03:46] VITALS: PULSE 69
[2024-07-22] MEDS: 0.9 % Sodium Chloride Flush 3 ML SYRINGE IVFLUSH ×2 (05:05→08:31)
[2024-07-22] MEDS: methylPREDNISolone Sod Succ 40 MG/ML VIAL IVPUSH (05:05)
[2024-07-22 06:57] LABS: Blood Urea Nitrogen 11 mg/dL (9-16); Calcium 9.1 mg/dL (8.4-10.2); Creatinine Clr Calc Pharmacy 58.9; Estimated Glomerular Filt Rate > 60; Glucose Random 143 mg/dL (60-115)
[2024-07-22 07:04] LABS: Anion Gap 16 (12-20); Carbon Dioxide 23 mmol/L (22-29); Chloride 97 mmol/L (96-108); Potassium 4.2 mmol/L (3.3-5.1); Sodium 132 mmol/L (135-145)
[2024-07-22] MEDS: Albuterol/Iprat 2.5/0.5MG 3 ML AMPUL.NEB INHALE ×2 (07:56→11:09)
[2024-07-22 07:57] VITALS: PULSE 64; RESP 18; O2SAT 96
[2024-07-22 08:00] VITALS: BP 150/67; PULSE 60; RESP 20; TEMP 37.2; O2SAT 96
--- NOTE | 2024-07-22 08:14 | P.PNIM_ITS ---
Subjective Subjective Date of Service: 07/22/24 Physical Exam 2 Vital Signs: Vital Signs: Last Vital Signs Temp 98.9 F 07/22/24 08:00 Pulse 60 07/22/24 08:00 Resp 20 07/22/24 08:00 BP 150/67 H 07/22/24 08:00 Pulse Ox 96 07/22/24 08:00 O2 Del Method Room Air 07/22/24 08:00 O2 Flow Rate 97 07/22/24 03:14 BMI result Body Mass Index 36.5 Objective Data Active Medications Acetaminophen (Acetaminophen 325 Mg Tablet) 650 mg PO Q6H PRN PRN Reason: Pain, Mild 1-3,fever,headache Albuterol/Ipratropium (Albuterol/Iprat 2.5/0.5mg 3 Ml Ampul.Neb) 3 ml INHALE RQ4H WHILE AWAKE [facility] Last Admin: 07/22/24 07:56 Dose: 3 ml Documented By: TRACY Albuterol/Ipratropium (Albuterol/Iprat 2.5/0.5mg 3 Ml Ampul.Neb) 3 ml INHALE RQ4H WHILE AWAKE PRN PRN Reason: Shortness of Breath/Wheezing Calcium Carbonate (Calcium Carbonate 750 Mg Tab.Chew) 750 mg PO Q4H PRN PRN Reason: Heartburn Ceftriaxone Sodium (Ceftriaxone Sodium 1 Gm Vial) 1 gm IVPUSH Q24H [facility] Enoxaparin Sodium (Enoxaparin Sodium 40 Mg/0.4 Ml Syringe) 40 mg SUBCUT Q24H [facility] Last Admin: 07/21/24 20:18 Dose: 40 mg Documented By: NEDRA Guaifenesin/Codeine Phosphate (Guaifen/Codeine Sf 200/20/10ml 10 Ml Liquid) 10 ml PO Q4H PRN PRN Reason: Cough Magnesium Hydroxide (Milk Of Magnesia 30 Ml Oral.Susp) 30 ml PO DAILY PRN PRN Reason: Constipation Melatonin (Melatonin 3 Mg Tablet) 6 mg PO BEDTIME PRN PRN Reason: Insomnia Methylprednisolone Sodium Succinate (Methylprednisolone Sod Succ 40 Mg/Ml Vial) 40 mg IVPUSH Q12H [facility] Last Admin: 07/22/24 05:05 Dose: 40 mg Documented By: DAPHNE Ondansetron HCl (Ondansetron Hcl 4 Mg/2 Ml Vial) 4 mg IVPUSH Q8H PRN PRN Reason: Nausea and Vomiting Oseltamivir Phosphate (Oseltamivir Phosphate 75 Mg Capsule) 75 mg PO Q12H [facility]RICA Stop: 07/26/24 09:01 Sodium Chloride (0.9 % Sodium Chloride Flush 3 Ml Syringe) 3 ml IVFLUSH QSHIFT [facility] Last Admin: 07/22/24 05:05 Dose: 3 ml Documented By: DAPHNE Labs 07/21/24 17:10 07/22/24 06:25 Labs: Laboratory Results - last 24 hr 07/21/24 07/21/24 07/21/24 17:08 17:09 17:10 MCV 82.5 MCH 30.3 MCHC 36.7 H RDW 13.9 Plt Count 163 MPV 10.4 Immature Gran % (Auto) 0.4 Neut % (Auto) 76.1 H Lymph % (Auto) 12.[address] [place] % (Auto) 8.9 Eos % (Auto) 1.5 Baso % (Auto) 0.4 Lymph # (Auto) 0.[address] [place] # (Auto) 0.5 Eos # (Auto) 0.1 Baso # (Auto) 0.0 Abs Immat Gran (auto) 0.02 Absolute Neuts (auto) 4.2 Absolute Nucleated RBC 0.000 Nucleated RBC % (auto) 0.0 Hold Purple Top Hold Blue Top VBG pH VBG pCO2 VBG pO2 VBG HCO3 VBG O2 Saturation VBG Base Excess Anion Gap 14 Estim Creat Clear Calc 62.1 Estimated GFR > 60 Random Glucose 138 H Lactic Acid 1.2 Calcium 8.6 D Magnesium 1.6 Total Bilirubin 0.9 Direct Bilirubin 0.3 AST 47 H ALT 27 Alkaline Phosphatase 62 Troponin I High Sens 10.7 B-Natriuretic Peptide 228 H Total Protein 7.4 Albumin 4.4 Urine Color Urine Appearance Urine pH Ur Specific [place] Urine Protein Urine Glucose (UA) Urine Ketones Urine Blood Urine Nitrite Ur Leukocyte Esterase Urine RBC Urine WBC Ur Squamous Epith Cells Urine Bacteria Hyaline Casts Influenza Type A (PCR) POSITIVE A Influenza Type B (PCR) NEGATIVE RSV RNA Qual (PCR) NEGATIVE SARS-CoV-2 RNA (RT-PCR) NEGATIVE S. pyogenes GrpA ROSANNA 07/21/24 07/21/24 07/21/24 17:16 17:19 17:51 MCV MCH MCHC RDW Plt Count MPV Immature Gran % (Auto) Neut % (Auto) Lymph % (Auto) [place] % (Auto) Eos % (Auto) Baso % (Auto) Lymph # (Auto) [place] # (Auto) Eos # (Auto) Baso # (Auto) Abs Immat Gran (auto) Absolute Neuts (auto) Absolute Nucleated RBC Nucleated RBC % (auto) Hold Purple Top Hold Blue Top SEE NOTE VBG pH 7.46 H VBG pCO2 31 VBG pO2 43 VBG HCO3 22 VBG O2 Saturation 73.0 VBG Base Excess -0.4 Anion Gap Estim Creat Clear Calc Estimated GFR Random Glucose Lactic Acid Calcium Magnesium Total Bilirubin Direct Bilirubin AST ALT Alkaline Phosphatase Troponin I High Sens B-Natriuretic Peptide Total Protein Albumin Urine Color Yellow Urine Appearance Clear Urine pH 6.0 Ur Specific [place] 1.010 Urine Protein 100 (2+) H Urine Glucose (UA) Negative Urine Ketones Negative Urine Blood Trace H Urine Nitrite Negative Ur Leukocyte Esterase Moderate (2+) H Urine RBC 0-2 Urine WBC 21-50 Ur Squamous Epith Cells 0-2 Urine Bacteria None Seen Hyaline Casts 3-5 Influenza Type A (PCR) Influenza Type B (PCR) RSV RNA Qual (PCR) SARS-CoV-2 RNA (RT-PCR) S. pyogenes GrpA ROSANNA 07/21/24 07/22/24 18:42 06:25 MCV MCH MCHC RDW Plt Count MPV Immature Gran % (Auto) Neut % (Auto) Lymph % (Auto) [place] % (Auto) Eos % (Auto) Baso % (Auto) Lymph # (Auto) [place] # (Auto) Eos # (Auto) Baso # (Auto) Abs Immat Gran (auto) Absolute Neuts (auto) Absolute Nucleated RBC Nucleated RBC % (auto) Hold Purple Top SEE NOTE Hold Blue Top VBG pH VBG pCO2 VBG pO2 VBG HCO3 VBG O2 Saturation VBG Base Excess Anion Gap 16 Estim Creat Clear Calc 58.9 Estimated GFR > 60 Random Glucose 143 H Lactic Acid Calcium 9.1 Magnesium Total Bilirubin Direct Bilirubin AST ALT Alkaline Phosphatase Troponin I High Sens B-Natriuretic Peptide Total Protein Albumin Urine Color Urine Appearance Urine pH Ur Specific [place] Urine Protein Urine Glucose (UA) Urine Ketones Urine Blood Urine Nitrite Ur Leukocyte Esterase Urine RBC Urine WBC Ur Squamous Epith Cells Urine Bacteria Hyaline Casts Influenza Type A (PCR) Influenza Type B (PCR) RSV RNA Qual (PCR) SARS-CoV-2 RNA (RT-PCR) S. pyogenes GrpA ROSANNA Negative Assessment and Plan Plan Pt is a 79-year-old female with a PMH significant for?persistent AFib s/p ablations w/Watchman and pacemaker in place, asthma/COPD overlap syndrome not on home O2, HTN, HLD, peripheral neuropathy, chronic lower extremity edema, and GERD who presents to the ED with?SOB, ZHONG, and persistent cough x2 weeks. Pt will be admitted to the hospital for treatment and further evaluation of acute asthma/COPD exacerbation in the setting of influenza type a infection. Acute asthma/COPD overlap exacerbation in the setting of influenza infection No sepsis: Pt with viral infection Will treat with DuoNebs, Solu-Medrol, Tamiflu, and guaifenesin Monitor respiratory status Acute hyponatremia Patient's sodium 128 at time of presentation Likely secondary to diuretic use and reduced p.o. intake Hold furosemide Follow sodium Question of acute cystitis UA suggestive UTI, pt endorses polyuria Empirically treat with ceftriaxone, started 07/21/2024 No sepsis: Tachypnea, but no tachycardia, fever, or leukocytosis; lactic acid WNL Follow urine cultures Chronic lower leg edema Lasix on hold due to hyponatremia Monitor volume status HTN Continue losartan HLD Continue statin Peripheral neuropathy Continue gabapentin Memory impairment Continue donepezil GERD PPI Full Code Attending:?Dr. Wallace DVT Prophylaxis: Lovenox Pt will require a hospitalization of at least two nights for treatment of acute asthma/COPD exacerbation in the setting of acute influenza type a infection. Given duration and severity of patient's symptoms, as well as significant comorbidities that place her at risk of rapid deconditioning, she will require hospital level care for administration of IV steroids, breathing treatments, and close monitoring of labs and respiratory status. Quality Stroke Does the patient have a stroke diagnosis?: No VTE Prior VTE?: No VTE Risk Level:: Medical - moderate - high VTE Device Contraindication: Treatment Not Indicated VTE Drug Contraindication: N/A - Med Ordered
--- NOTE | 2024-07-22 08:16 | P.DS_ITS ---
DS: Providers Provider Date of Service: 07/22/24 Date of admission: 07/21/24 19:45 Date of discharge: 07/22/24 Primary care physician: Riely Desir III, MD DS: Diagnosis Discharge Diagnosis (1) Acute hyponatremia: Status: Acute (2) Influenza: Status: Acute (3) Asthma exacerbation: Status: Acute DS: Summary Hospital Course Hospital Course: admission hpi Chief Complaint: SOB Pt is a 79-year-old female with a PMH significant for?persistent AFib s/p ablations w/Watchman and pacemaker in place, asthma/COPD overlap syndrome not on home O2, HTN, HLD, peripheral neuropathy, chronic lower extremity edema, and GERD who presents to the ED with?SOB, ZHONG, and persistent cough x2 weeks. Cough has been occasionally productive of white and clear sputum. No fever or chills. Symptoms have been ongoing the past couple of weeks though pt has been experiencing increased fatigue and difficulty sleeping. Today she reached her ?breaking point? and presented to urgent care who recommended further treatment and evaluation at the ED due to severity of patient's symptoms. Pt apparently was very dyspneic just with ambulating to the ED. Had had reduced p.o. intake, but no nausea, vomiting, abdominal pain. Endorses polyuria but no dysuria. In the ED pt was tachypneic up to 23, otherwise vitals stable and WNL. Pt is satting at 98% on RA. Labs were significant for testing positive for influenza type a, sodium 128, AST 47, and BNP elevated at 228 (baseline unknown). Stable normocytic anemia of 10.9/29.7. Renal function baseline. UA questionable for UTI with moderate leukocyte esterase and WBCs 21-50. CXR showed mild interstitial prominence with scattered peribronchial thickening without focal consolidation. Venous duplex of lower extremities negative for DVTs bilaterally. EKG demonstrated ventricular paced rhythm without evidence of significant ST elevations or depressions. Pt was treated with Solu-Medrol, DuoNebs, and ceftriaxone. Pt will be admitted to the hospital for treatment and further evaluation of acute asthma/COPD exacerbation in the setting of influenza type a infection. hospital course: A 79-year-old female with a past medical history significant for persistent AFib status post ablations with Watchman and pacemaker placement, asthma/COPD overlap syndrome not on home oxygen, hypertension, hyperlipidemia, peripheral neuropathy, chronic lower extremity edema, and GERD presents to the ED with shortness of breath (SOB), dyspnea on exertion (ZHONG), and a persistent cough for two weeks. Testing revealed influenza, and she was admitted for treatment of an acute asthma/COPD exacerbation. She was managed with IV steroids and nebulized bronchodilators and has made a more rapid recovery than expected. She now reports no difficulty breathing, improved cough, and an oxygen saturation of 94% on room air, and she expresses a desire to go home. She will be discharged to complete: * 5-day course of prednisone * 5-day course of Tamiflu for influenza * Ceftin for UTI (was on ceftriaxone in the hospital) She was also noted to have a sodium level of 128, which has now improved to 132, and she remains asymptomatic. This is likely due to Lasix use for chronic leg edema, and she has signs of acute heart failure. Lasix will be held, repeat labs will be checked on an outpatient basis, and she will follow up with her PCP. HTN Continue losartan HLD Continue statin Peripheral neuropathy Continue gabapentin Memory impairment Continue donepezil GERD PPI Time Attestation Discharge Coordination Time (in mins): 35 Quality: Safe Use of Opioids Does Pt have an Active Cancer Diagnosis on the Problem List?: No Quality: Stroke Does the patient have a stroke diagnosis?: No Physical Exam Vital Signs: Vital Signs: Last Vital Signs Temp 98.9 F 07/22/24 08:00 Pulse 60 07/22/24 08:00 Resp 20 07/22/24 08:00 BP 150/67 H 07/22/24 08:00 Pulse Ox 96 07/22/24 08:00 O2 Del Method Room Air 07/22/24 08:00 O2 Flow Rate 97 07/22/24 03:14 BMI result Body Mass Index 36.5 DS: Data Data Completed and Pending Labs on day of discharge: Laboratory Results - last 24 hr 07/21/24 07/21/24 07/21/24 17:08 17:09 17:10 WBC 5.5 RBC 3.60 L Hgb 10.9 L Hct 29.7 L MCV 82.5 MCH 30.3 MCHC 36.7 H RDW 13.9 Plt Count 163 MPV 10.4 Immature Gran % (Auto) 0.4 Neut % (Auto) 76.1 H Lymph % (Auto) 12.7 L [place] % (Auto) 8.9 Eos % (Auto) 1.5 Baso % (Auto) 0.4 Lymph # (Auto) 0.7 L [place] # (Auto) 0.5 Eos # (Auto) 0.1 Baso # (Auto) 0.0 Abs Immat Gran (auto) 0.02 Absolute Neuts (auto) 4.2 Absolute Nucleated RBC 0.000 Nucleated RBC % (auto) 0.0 Hold Purple Top Hold Blue Top VBG pH VBG pCO2 VBG pO2 VBG HCO3 VBG O2 Saturation VBG Base Excess Sodium 128 L Potassium 3.3 Chloride 97 Carbon Dioxide 20 L Anion Gap 14 BUN 11 Creatinine 0.72 Estim Creat Clear Calc 62.1 Estimated GFR > 60 Random Glucose 138 H Lactic Acid 1.2 Calcium 8.6 D Magnesium 1.6 Total Bilirubin 0.9 Direct Bilirubin 0.3 AST 47 H ALT 27 Alkaline Phosphatase 62 Troponin I High Sens 10.7 B-Natriuretic Peptide 228 H Total Protein 7.4 Albumin 4.4 Urine Color Urine Appearance Urine pH Ur Specific [place] Urine Protein Urine Glucose (UA) Urine Ketones Urine Blood Urine Nitrite Ur Leukocyte Esterase Urine RBC Urine WBC Ur Squamous Epith Cells Urine Bacteria Hyaline Casts Influenza Type A (PCR) POSITIVE A Influenza Type B (PCR) NEGATIVE RSV RNA Qual (PCR) NEGATIVE SARS-CoV-2 RNA (RT-PCR) NEGATIVE S. pyogenes GrpA ROSANNA 07/21/24 07/21/24 07/21/24 17:16 17:19 17:51 WBC RBC Hgb Hct MCV MCH MCHC RDW Plt Count MPV Immature Gran % (Auto) Neut % (Auto) Lymph % (Auto) [place] % (Auto) Eos % (Auto) Baso % (Auto) Lymph # (Auto) [place] # (Auto) Eos # (Auto) Baso # (Auto) Abs Immat Gran (auto) Absolute Neuts (auto) Absolute Nucleated RBC Nucleated RBC % (auto) Hold Purple Top Hold Blue Top SEE NOTE VBG pH 7.46 H VBG pCO2 31 VBG pO2 43 VBG HCO3 22 VBG O2 Saturation 73.0 VBG Base Excess -0.4 Sodium Potassium Chloride Carbon Dioxide Anion Gap BUN Creatinine Estim Creat Clear Calc Estimated GFR Random Glucose Lactic Acid Calcium Magnesium Total Bilirubin Direct Bilirubin AST ALT Alkaline Phosphatase Troponin I High Sens B-Natriuretic Peptide Total Protein Albumin Urine Color Yellow Urine Appearance Clear Urine pH 6.0 Ur Specific [place] 1.010 Urine Protein 100 (2+) H Urine Glucose (UA) Negative Urine Ketones Negative Urine Blood Trace H Urine Nitrite Negative Ur Leukocyte Esterase Moderate (2+) H Urine RBC 0-2 Urine WBC 21-50 Ur Squamous Epith Cells 0-2 Urine Bacteria None Seen Hyaline Casts 3-5 Influenza Type A (PCR) Influenza Type B (PCR) RSV RNA Qual (PCR) SARS-CoV-2 RNA (RT-PCR) S. pyogenes GrpA ROSANNA 07/21/24 07/22/24 18:42 06:25 WBC RBC Hgb Hct MCV MCH MCHC RDW Plt Count MPV Immature Gran % (Auto) Neut % (Auto) Lymph % (Auto) [place] % (Auto) Eos % (Auto) Baso % (Auto) Lymph # (Auto) [place] # (Auto) Eos # (Auto) Baso # (Auto) Abs Immat Gran (auto) Absolute Neuts (auto) Absolute Nucleated RBC Nucleated RBC % (auto) Hold Purple Top SEE NOTE Hold Blue Top VBG pH VBG pCO2 VBG pO2 VBG HCO3 VBG O2 Saturation VBG Base Excess Sodium 132 L Potassium 4.2 D Chloride 97 Carbon Dioxide 23 Anion Gap 16 BUN 11 Creatinine 0.76 Estim Creat Clear Calc 58.9 Estimated GFR > 60 Random Glucose 143 H Lactic Acid Calcium 9.1 Magnesium Total Bilirubin Direct Bilirubin AST ALT Alkaline Phosphatase Troponin I High Sens B-Natriuretic Peptide Total Protein Albumin Urine Color Urine Appearance Urine pH Ur Specific [place] Urine Protein Urine Glucose (UA) Urine Ketones Urine Blood Urine Nitrite Ur Leukocyte Esterase Urine RBC Urine WBC Ur Squamous Epith Cells Urine Bacteria Hyaline Casts Influenza Type A (PCR) Influenza Type B (PCR) RSV RNA Qual (PCR) SARS-CoV-2 RNA (RT-PCR) S. pyogenes GrpA ROSANNA Negative Discharge Plan Discharge Anticipated Discharge Date/Time: 07/22/24 10:23 Patient Disposition: Home, Self-Care Discharge Diagnosis: Asthma exacerbation, Influenza, uti Referrals: Riley Desir III, MD [Primary Care Provider] - 1 Week Discharge Medications: Continued losartan 50 mg tablet 50 mg PO DAILY fluticasone propion-salmeterol 250-50 mcg/dose blister with device 1 ea inhalation BID donepezil 10 mg tablet 10 mg PO BEDTIME sertraline 100 mg tablet 200 mg PO DAILY simvastatin 40 mg tablet 40 mg PO BEDTIME ascorbic acid (vitamin C) [Vitamin C] 500 mg Tablet 500 mg PO DAILY omeprazole 20 mg capsule,delayed release(DR/EC) 20 mg PO DAILY@0630 folic acid 1 mg tablet 1 mg PO DAILY montelukast 10 mg tablet 10 mg PO BEDTIME gabapentin 100 mg capsule 100 mg PO BEDTIME fluticasone propionate 50 mcg/actuation spray,suspension 2 spray intranasal DAILY loratadine [Allergy Relief (loratadine)] 10 mg tablet 10 mg PO DAILY bupropion HCl 150 mg tablet extended release 24 hr 150 mg PO DAILY Viactiv 500 mg-100 unit -40 mcg Tablet,Chewable 1 tab PO DAILY cholecalciferol (vitamin D3) 50 mcg (2,000 unit) capsule 50 mcg PO DAILY Women's Multivitamin 18 mg iron-400 mcg-500 mg Tablet 1 tab PO DAILY Discontinued furosemide 20 mg tablet 20 mg PO MOWEFR@0900 Discharge Orders: Discharge Order (Routine); Ordered 07/22/24 Ordered By: Jefferson Lopez Diet: Advance to usual diet Activity on Discharge: As tolerated Stand Alone Forms: Patient Portal Discharge page Print Language: Senegalese Care Plan Goals: recovery from influenza, asthma exacerbation, low sodium and uti Health Concerns: same as above Plan of Treatment: take prednisone for asthma continue your usual inhalers take tamiflu for the flu--take flu precaution * Stay home until fever-free for at least 24 hours (without using fever-reducing meds). * You are most contagious: First 3-4 days after symptoms start. * Precautions for at least 7 days if you are immunocompromised, elderly, or around high-risk individuals. * hold on taking lasix, you will have lab work done during the weak to reassess sodium level, and follow up with your doctor in a week Assessment: see above
[2024-07-22] MEDS: Oseltamivir Phosphate 75 MG CAPSULE PO (08:31)
--- NOTE | 2024-07-22 09:27 | PHA.MEDREC ---
Pharmacy Consult ? Medication Reconciliation Pharmacy has completed the medication reconciliation. SPOKE WITH PATIENT AND SHE WAS ABLE TO CONFIRM ALL MEDS
[2024-07-22 10:56] VITALS: BP 123/61; PULSE 68; RESP 18; TEMP 37.2; O2SAT 97
--- NOTE | 2024-07-22 10:56 | MHC.CM.PN ---
IMM 07/22/24, Pt lives with her , PCP confirmed: Riley Desir, HCP completed and added to chart, naming Steve and Lisandra. Pt does not have any home health services or DME. Family to transport home at [place]. DCP: home, self care. Cm to follow for DC needs.
[2024-07-22] MEDS: Multivitamin TABLET 1 TAB PO (10:57)
[2024-07-22] MEDS: Loratadine 10 MG TABLET PO (10:57)
[2024-07-22] MEDS: Folic Acid 1 MG TABLET PO (10:57)
[2024-07-22] MEDS: buPROPion HCl XL 150 MG TAB.ER.24H PO (10:57)
[2024-07-22] MEDS: Ascorbic Acid 500 MG TABLET PO (10:57)
[2024-07-22] MEDS: Sertraline HCL 100 MG TABLET 200 MG PO (10:57)
[2024-07-22] MEDS: Cholecalciferol (Vitamin D3) 25 MCG TABLET 50 MCG PO (10:57)
[2024-07-22] MEDS: Atorvastatin Calcium 20 MG TABLET PO (10:57)
[2024-07-22] MEDS: Losartan Potassium 50 MG TABLET PO (10:57)
[2024-07-22] MEDS: Omeprazole 20 MG CAPSULE.DR PO (10:57)
[2024-07-22 11:09] VITALS: PULSE 83; RESP 18; O2SAT 94
== END 2024-07-22 12:44 | disposition home or self-care (01) | DRG 194 ==
LOC: HO.ED 19:45 → HO.EDOVER 20:15 → HO.IMC 21:22
PROVIDERS: Emergency Medicine; Admitting Provider Student in an Organized Health Care Education/Training Program; Emergency Provider Emergency Medicine; PCP Internal Medicine; Visit Provider Internal Medicine
DX: J10.1 Influenza due to other identified influenza virus with other respiratory manifestations (principal); E87.1 Hypo-osmolality and hyponatremia; J44.1 Chronic obstructive pulmonary disease with (acute) exacerbation; J45.901 Unspecified asthma with (acute) exacerbation; Z95.811 Presence of heart assist device; I10 Essential (primary) hypertension; E78.5 Hyperlipidemia, unspecified; G62.9 Polyneuropathy, unspecified; Z95.0 Presence of cardiac pacemaker; Z79.51 Long term (current) use of inhaled steroids; Z79.899 Other long term (current) drug therapy
CPT/HCPCS: 0241U; 36415; 71045; 80048; 80076; 81001; 82803; 83605; 83735; 83880; 84484; 85025; 87040; 87086; 87651; 93005; 93971; 94640; 99285; J0696; J1650; J2919

== ENCOUNTER → 2024-07-21 16:48 | Outpatient (BNV) | payer MEDICARE, SELFPAY | PROVIDERS: Admitting Provider Student in an Organized Health Care Education/Training Program; Emergency Provider Emergency Medicine; PCP Internal Medicine; Visit Provider Internal Medicine | DX: R94.31 Abnormal electrocardiogram [ECG] [EKG] (principal) | CPT/HCPCS: 93010 ==

== ENCOUNTER → 2024-07-21 16:50 | Outpatient (BNV) | payer MEDICARE, SELFPAY | PROVIDERS: Emergency Provider Emergency Medicine; PCP Internal Medicine; Visit Provider Radiology Vascular & Interventional Radiology | DX: R22.41 Localized swelling, mass and lump, right lower limb (principal); J84.9 Interstitial pulmonary disease, unspecified | CPT/HCPCS: 71045; 93971 ==

== ENCOUNTER → 2024-07-21 19:45 | Outpatient (BNV) | payer MEDICARE, SELFPAY | PROVIDERS: Admitting Provider Student in an Organized Health Care Education/Training Program; Emergency Provider Emergency Medicine; PCP Internal Medicine; Visit Provider Student in an Organized Health Care Education/Training Program | DX: E87.1 Hypo-osmolality and hyponatremia (principal); J11.1 Influenza due to unidentified influenza virus with other respiratory manifestations; J45.901 Unspecified asthma with (acute) exacerbation; J44.1 Chronic obstructive pulmonary disease with (acute) exacerbation | CPT/HCPCS: 99223; 99239 ==

== ENCOUNTER 2024-07-24 08:27 | Outpatient (REF) | payer MEDICARE, SELFPAY ==
--- OUTSIDE RECORDS SUMMARY | 2024-07-24 08:42 | XMS_ITS | Encounter Summary ---
Author Organization [facility] Address [address] [place] [address] Care Team Providers Care Water Inspector Name Role Phone Riley Desir MD Primary Care Provider [phone] Reason for Visit * Reason Onset Date Comments Med Refill 06/29/2024 Incoming fax S&S Lasix 20mg Encounter Details Date Type Department Care Team (Late st Contact Info) Description 06/29/2024 Telephone [facility] [address] [facility] [address] [place] [address] Rochelle Hidalgo MA Med Refill (Incoming fax S&S Lasix 20mg ) Social History Tobacco Use Types Packs/Day Years Used Date Smoking Tobacco: Never Smokeless Tobacco: Never Alcohol Use Standard Drinks/Week Comments Yes 1 (1 standard drink = 0.6 oz pur e alcohol) social/events Housing Instability Answer Date Recorde d Are you worried that in the next 2 months you may not have stable housing? No 05/30/2024 Food Access & Nutrition Answer Date Rec orded Do you have access to a vari ety of food including fruits and vegetables? No 05/30/2024 Access to Healthcare Answer Date Record ed Within the last 3 months, ho w many times did you visit the emergency department for your medical care? 0 05/30/2024 Health Literacy Answer Date Recorded How often do you need to hav e someone help you when you read instructions, pamphlets, or other written material from your doctor or pharmacy? Never 05/30/2024 Caregiver: How often do you need to have someone help you when you read instructions, pamphlets, or other written material from your doctor or pharmacy? Not on file 05/30/2024 Financial Risk Answer Date Recorded How hard is it for you to pa y for the very basics like food, housing, medical care, and air conditioning / heating? Somewhat hard 05/30/2024 Transportation Answer Date Recorded Has the lack of transportati on kept you from meetings, work, or from getting things needed for daily living? No Has the lack of transportati on kept you from medical appointments or from getting medications? No 05/30/2024 Social Isolation Answer Date Recorded How often do you feel lonely or isolated from th ose around you? Never 05/30/2024 Food Risk Answer Date Recorded Within the past 12 months we worried whether our food would run out before we got money to buy more. Never true 05/30/2024 Within the past 12 months th e food we bought just didn't last and we didn't have money to get more. Never true 05/30/2024 Dependent Care Answer Date Recorded Do you need help finding or paying for care for your loved ones. For example, child and youth program assistant or elderly care for an older adult? No 05/30/2024 Education Answer Date Recorded Do you think completing more education or training, like finishing a GED, going to college, or learning a trade, would be helpful for you? No 05/30/2024 Employment and Income Answer Date Recor ded During the last four weeks, have you been actively looking for work? No 05/30/2024 Living Situation Answer Date Recorded What is your living situation? 1 07/31/2023 Sex and Gender Information Value Date Recorded Sex Assigned at Not on file Gender Identity Not on file Sexual Orientation Not on file Job Start Date Occupation Industry Not on file Not on file Not on file documented as of this encounter Ordered Prescriptions Prescription Sig Dispensed Refills Start Date End Da te furosemide (LASIX) 20 mg tablet Take 1 tablet (20 mg total) by mouth every other day. Or as directed for weight gain, shortness of breath or edema 45 tablet 1 06/29/2024 documented in this encounter Progress Notes * Rochelle Hidalgo MA - 06/29/2024 10:[address] [facility] Rx Lasix Renewed documented in this encounter Plan of Treatment Upcoming Encounters Date Type Department Care Team (Late st Contact Info) Description 08/13/2024 10:30 AM EST Office Visit Adult Medicine [address] [phone] Riley Desir MD [address] [place] [address] 01/02/2025 11:00 AM EDT Office Visit [address] [phone] Riley Desir MD [address] [place] [address] 01/23/2025 11:00 AM EDT Ancillary Procedure [facility] [address] [facility] [address] [place] [address] 02/26/2025 11:00 AM EDT Office Visit Endocrinology [address] [phone] America Felipe PA [address] [place], [place] 03/07/2025 11:30 AM EDT Office Visit Pulmonolgy [facility] [address] [facility] [address] [place] [id number] Elisa Plascencia MD [address] [facility] [address] [place] [address] documented as of this encounter Visit Diagnoses Not on filedocumented in this encounter Discontinued Medications Medication Sig Discontinue Reason Start Date End Da te furosemide (LASIX) 20 mg tablet Take 1 Tablet by mouth every other day. Or as directed for weight gain/SOB/edema Reorder 01/06/2024 06/29/2024 documented as of this encounter Additional Health Concerns Assessment Noted Time PHQ-9 Depression Total Score: 1 05/30/20 9:10 AM EST A fall risk assessment has been complete d for the patient 05/30/2024 9:08 AM EST documented as of this encounter Care Teams Water Inspector Relationship Specialty Start Date End Date Riley Desir MD [address] [place] [id number] PCP - General 07/19/05 documented as of this encounter
--- OUTSIDE RECORDS SUMMARY | 2024-07-24 08:42 | XMS_ITS ---
Author Organization [address] Address [address] [place] [phone] Phone Care Team Providers Care Sanitation Worker Name Role Phone Riley Desir MD Primary Care Provider [phone] Chronic Care Management Status:Identified (Enrolling) Start date:07/23/2024 Enrollment reason:Referred by Care Team Case Team Name Relationship Phone July Partida RN Care Manager(Responsible S taff) Continued Care and Services Coordination
--- OUTSIDE RECORDS SUMMARY | 2024-07-24 08:43 | XMS_ITS | Clinical Summary ---
Author Organization [facility] Address [address] [place] [address] Care Team Providers Care Licensed Mental Health Counselor Name Role Phone Riley Desir MD Primary Care Provider [phone] Allergies Active Allergy Reactions Criticality Noted Date Comments Seasonal 11/03/2020 Medications Medication Sig Dispensed Refills Start Date End Date Status sertraline (ZOLOFT) 100 MG tablet Take 200 mg by mouth daily. 0 Active omeprazole (PriLOSEC) 20 MG capsule Take 20 mg by mouth daily. 0 Active furosemide (LASIX) 20 MG tablet Take 10 mg by mouth daily. 0 Active Loratadine 10 MG CAPS Take 10 mg by mouth daily. 0 Active losartan (COZAAR) tablet 25 mg Take 50 mg by mouth daily. 0 Active alendronate (FOSAMAX) tablet 70 mg Take 70 mg by mouth every 7 days. Take with water on empty stomach/Nothing by mouth and do not lie down for next 30 minutes 0 Active simvastatin (ZOCOR) tablet 40 mg Take 40 mg by mouth every night at bedtime. 0 Active montelukast (SINGULAIR) 10 MG tablet Take 10 mg by mouth every night at bedtime. 0 Active rivaroxaban (XARELTO) 20 MG TABS tablet Take 20 mg by mouth every morning with breakfast. 0 Active aspirin EC 81 MG EC tablet Take 1 tablet (81 mg total) by mouth daily. 30 tablet 2 11/04/2020 Active Social History Tobacco Use Types Packs/Day Years Used Date Smoking Tobacco: Never Smokeless Tobacco: Never Alcohol Use Standard Drinks/Week Comments Not Currently 0 (1 standard drink = 0.6 oz pur e alcohol) Sex and Gender Information Value Date Recorded Sex Assigned at Female 10/23/2020 3:46 PM EDT Gender Identity Not on file Sexual Orientation Not on file Job Start Date Occupation Industry Not on file Not on file Not on file Last Filed Vital Signs Vital Sign Reading Time Taken Comments Blood Pressure 124/69 11/04/2020 9:23 AM EDT Pulse 60 11/04/2020 9:23 AM EDT Temperature 36.8 ??C (98.3 ??F) 11/04/2020 9:23 AM ED T Respiratory Rate 23 11/04/2020 9:23 AM EDT Oxygen Saturation 98% 11/04/2020 9:23 AM EDT Inhaled Oxygen Concentration - - Weight 88.2 kg (194 lb 8 oz) 11/03/2020 10:21 AM EDT Height 152.4 cm (5') 11/03/2020 10:21 AM EDT Body Mass Index 37.99 11/03/2020 10:21 AM EDT Plan of Treatment Health Maintenance Due Date Last Done Comments Hepatitis C Screening 1945 Depression Screening 1958 BMI Counseling 1964 Preventative Health Evaluation 1964 Shingrix-Zoster Vaccine (1 of 2) 1996 Fall Risk Assessment 2011 Osteoporosis Screening (DEXA Scan) 2011 DTap / Tdap / Td (2 - Td or Tdap) 08/09/2016 08/09/2006 RSV Adult > 60+ Yrs or (1 - 1-dose 75+ series) 2021 COVID-19 Vaccine (3 - season) 2024 09/18/2020, 08/18/2020 Influenza Vaccine (#1) 2024 0, 02/27/2019, 03/29/2017, Additional history exists Pneumococcal Vaccine Completed 04/09/2016, 03/24/20 12 Hepatitis B Vaccines Aged Out No long er eligible based on patient's age to complete this topic RSV Ped < 20 months Aged Out No longe r eligible based on patient's age to complete this topic Medical Devices Implanted Type Area Assistant Professor Of Sociology Device Identifier Shelf Expiration Date Model / Serial / Lot Occluder Watchman Pebax Nit Plat Iridium Pet 27mm L75cm Od12 - [id number] - [id number] Implanted:Qty: 1 on 11/03/2020 by Awais Richard MD at [facility] and Med N/A: Heart [employer] [id number] / [id number] / Description:KEZIA Explanted Type Area Assistant Professor Of Sociology Device Identifier Shelf Expiration Date Model / Serial / Lot Occluder Watchman Pebax Nit Plat Iridium Pet 27mm L75cm Od12 - [id number] - [id number] Explanted:Qty: 1 on 11/03/2020 by Awais Richard MD at [facility] and Med N/A: Heart [employer] [id number] / [id number] / Advance Directives For more information, please contact: [phone] Latest Code Status on File Code Status Date Activated Date Inactivated Comments Full Code 11/03/2020 3:22 PM 11/04/2020 5:59 PM This code status was ascertained in the following way: discussion with patient . Code Status History Code Status Date Activated Date Inactivated Comments Full Code 11/03/2020 2:44 PM 11/03/2020 3:22 PM This code status was ascertained in the following way: discussion with patient . Care Teams Licensed Mental Health Counselor Relationship Specialty Start Date End Date Riley Desir MD PCP - General Internal Medicine 11/03/20
--- OUTSIDE RECORDS SUMMARY | 2024-07-24 08:43 | XMS_ITS | Encounter Summary ---
Author Organization [facility] Address [address] [place] [phone] Care Team Providers Care Bezel Cutter Name Role Phone Riley Desir MD Primary Care Provider [phone] Reason for Referral * Consultation (Routine) - Pending Review Specialty Diagnoses / Procedures Referred By Ray martínez Referred To Contact Dermatology Diagnoses Skin lesion Riley Desir MD [address] [place] [phone] Cecile Moreno MD [address] [place] [phone] Referral ID Status Reason Start Date Expiration Date Visits Requested Visits Authorized [id number] Pending Review Specialty Services Required 07/03/2024 07/03/2025 1 1 * Consultation (Routine) - Authorized Specialty Diagnoses / Procedures Referred By Ray martínez Referred To Contact Otolaryngology Diagnoses Chronic sinusitis, unspecified location Epistaxis Riley Desir MD [address] [place] [phone] Jefferson Banks MD [address] [address] Referral ID Status Reason Start Date Expiration Date Visits Requested Visits Authorized [id number] Authorized Specialty Services Required 07/03/2024 07/03/2025 1 1 Reason for Visit * Reason Comments Hyperlipidemia Atrial Fibrillation Encounter Details Date Type Department Care Team (Late st Contact Info) Description 07/03/2024 11:30 AM EST Office Visit Adult Medicine [address] [phone] Riley Desir MD [address] [place] [phone] Hypertension, unspecified type (Primary Dx); Chronic sinusitis, unspecified location; Epistaxis; Skin lesion; Atrial fibrillation, unspecified type (CMS/HCC); Pacemaker; Depression, unspecified depression type; Dementia without behavioral disturbance, psychotic disturbance, mood disturbance, or anxiety, unspecified dementia severity, unspecified dementia type (CMS/HCC); Pure hypercholesterolemia Social History Tobacco Use Types Packs/Day Years Used Date Smoking Tobacco: Never Smokeless Tobacco: Never Tobacco Cessation:Counseling Given: Not Answered Alcohol Use Standard Drinks/Week Comments Yes 1 [...] do you feel lonely or isolated from ose around you? Never 05/30/2024 Food Risk [...] care for your loved ones. For example, child's nurse or elderly care for an older adult? [...] on file documented as of this encounter Last Filed Vital Signs Vital Sign Reading Time Taken Comments Blood Pressure 134/84 07/03/2024 11:26 AM EST Pulse 64 07/03/2024 11:26 AM EST Temperature 36.9 ??C (98.4 ??F) 07/03/2024 11:[address] Respiratory Rate 14 07/03/2024 11:26 AM EST Oxygen Saturation - - Inhaled Oxygen Concentration - - Weight 84.4 kg (186 lb) 07/03/2024 11:26 AM EST Height 152.4 cm (5') 07/03/2024 11:26 AM EST Body Mass Index 36.33 07/03/2024 11:26 AM EST documented in this encounter Progress Notes * Riley Desir MD - 07/03/2024 11:30 AM EST CHIEF COMPLAINT: Hyperlipidemia and Atrial Fibrillation IDENTIFIER: Yoli Orozco is a 78 y.o. old female. HPI: pt with hx of afib Dx 12/2013 Pt had 2 unsuccessful ablation attempts Pt had pacer placed in 2017 Has had watchman device placement 2021 and was d/toby for AC Pt is following with cards Pt has f/u cardiology spring 2024([facility]) Pt seen last summer 2023 Pt had no change in management Pt is on low dose asa Pt denies chest pain pt denies palpitations Pt is rate controlled at 64 Pt is on simvastatin Moderate intensity Last ldl 65 05/2024 Pt with htn bp controlled on losartan bp is near goal today @134/84 Pt denies light head/dizziness, shortness of breath , chest pain or cough. Gfr 64 lytes wnl 05/2024 Pt with depression controlled on current regimen Pt is taking zoloft 200mg and wellbutrin 150mg xl Pt notes depression is tolerable Pt with dementia is on donepezil Pt follows neuro has f/u next week. Pt does not drive in few year. Pt denies safety Pt with chronic sinusitis and frequent nose bleeds pt is on flonase not helpful Pt had physical last month and was offered referral to ENT , pt declined but is now interested Pt notes skin lesion right knee since the summer It is associated with flaking. She denies itchiness, pain or bleeding. Referral to derm was placed but pt was not contacted ROS: GENERAL: Negative for malaise, significant weight loss and fever HEENT: See HPI RESPIRATORY: No cough, wheezing or shortness of breath CARDIOVASCULAR: Negative for chest pain, leg swelling and palpitations SKIN: See HPI PAST MEDICAL HISTORY: Patient Active Problem List Diagnosis Date Noted Elevated TSH 04/07/2022 Elevated parathyroid hormone 04/07/2022 Vitamin D deficiency 04/07/2022 Osteoporosis 03/09/2022 Prediabetes 11/18/2021 Chest pain on exertion 08/15/2020 Dyspnea on exertion 08/15/2020 Osteoarthritis of both knees 03/13/2020 Rotator cuff tendonitis, unspecified laterality 03/13/2020 Pacemaker 05/30/2018 Low back pain with sciatica 12/01/2017 Dysphagia 02/03/2016 Atrial fibrillation ([facility]) 01/16/2014 Hypertension 09/14/2013 GERD (gastroesophageal reflux disease) 08/23/2012 Gallstone 03/16/2012 COPD (chronic obstructive pulmonary disease) ([facility]) 01/10/2012 Severe obesity (BMI 35.0-39.9) with comorbidity ([facility]) 09/15/2010 Diverticulitis of colon without hemorrhage 08/09/2006 Depression 07/12/2006 Pure hypercholesterolemia 04/11/2006 SOCIAL HISTORY: Social History Tobacco Use Smoking status: Never Smokeless tobacco: Never Substance Use Topics Alcohol use: Yes Alcohol/week: 1.0 standard drink of alcohol Types: 1 Standard drinks or equivalent per week Comment: social/events FAMILY HISTORY: Family Status Relation Name Status Mother (Not Specified) PGF (Not Specified) Neg Hx (Not Specified) No partnership data on file Family History Problem Relation Name Age of Onset Diabetes Mother Heart attack Mother 83 Prostate cancer Paternal Grandfather Breast cancer Neg Hx Colon cancer Neg Hx Ovarian cancer Neg Hx Blindness Neg Hx Cataracts Neg Hx Glaucoma Neg Hx Macular degeneration Neg Hx Strabismus Neg Hx ACTIVE MEDICATIONS: Outpatient Medications Marked as Taking for the 07/03/24 encounter (Office Visit) with Riley Desir MD Medication Sig Dispense Refill albuterol HFA (PROAIR HFA ; PROVENTIL HFA ; VENTOLIN HFA) 90 mcg/actuation inhaler Inhale 2 Puffs into the lungs every 4 hours as needed for Cough or Wheezing. ascorbic acid (Vitamin C) 500 mg chewable tablet Take 1 Tab by mouth daily. gummies aspirin 81 mg EC tablet Take 81 mg by mouth daily. buPROPion XL (WELLBUTRIN XL) 150 mg 24 hr tablet Take 1 tablet (150 mg total) by mouth 1 (one) timeeach day. cholecalciferol (VITAMIN D-3) 50 mcg (2,000 unit) capsule Take 1 capsule (2,000 Units total) by mouth 1 (one) time each day. 90 capsule 3 ciclopirox (LOPROX) 0.77 % cream APPLY ONE APPLICATION ON THE SKIN TWICE A DAY denosumab (PROLIA) 60 mg/mL syringe syringe Inject 60 mg into the skin Every 6 Months. donepeziL (ARICEPT) 10 mg tablet Take 1 Tablet by mouth at bedtime. fluticasone propionate (FLONASE) 50 mcg/actuation nasal spray Administer 2 sprays into each nostril1 (one) time each day. Shake gently. Before first use, prime pump. After use, clean tip and replacecap. 16 g 1 fluticasone-salmeterol (ADVAIR DISKUS) 250-50 mcg/dose diskus inhaler INHALE 1 PUFF INTO LUNGS TWO TIMES DAILY 60 each 11 folic acid (FOLVITE) 1 mg tablet Take 1 tablet (1,000 mcg total) by mouth 1 (one) time each day. furosemide (LASIX) 20 mg tablet Take 1 tablet (20 mg total) by mouth every other day. Or as directed for weight gain, shortness of breath or edema 45 tablet 1 gabapentin (NEURONTIN) 100 mg capsule Take 1 capsule (100 mg total) by mouth. loratadine (CLARITIN) 10 mg tablet Take 1 tablet (10 mg total) by mouth 1 (one) time each day. losartan (COZAAR) 50 mg tablet Take 1 tablet (50 mg total) by mouth 1 (one) time each day. multivitamin with minerals (MULTIPLE VITAMIN-MINERALS ORAL) Take 1 Tab by mouth daily. nystatin (Nyamyc) 100,000 unit/gram powder APPLY 1 GRAM ON THE SKIN FOUR TIMES A DAY omeprazole (PriLOSEC) [address] capsule Take 1 capsule (20 mg total) by mouth 1 (one) time each day. sertraline (ZOLOFT) 100 mg tablet Take 2 tablets (200 mg total) by mouth 1 (one) time each day. simvastatin (ZOCOR) 40 mg tablet Take 1 tablet (40 mg total) by mouth at bedtime. ALLERGIES: Other PHYSICAL EXAM: Blood pressure 134/84, pulse 64, temperature 36.9 ??C (98.4 ??F), temperature source Oral, resp. rate 14, height 1.524 m (60 ), weight 84.4 kg (186 lb), not currently . There is no height or weight on file to calculate BMI. Plan is deferred until next visit APPEARANCE: Alert and in no acute distress EYES: PERRLA, conjunctiva and sclera normal HEART: RRR with normal S1 and S2, no murmurs, no gallops, no JVD appreciated LUNG: clear to auscultation bilaterally EXTREMITIES: Extremities warm and well perfused without clubbing, cyanosis, or edema SKIN: right knee medial aspect with thick had white flaky skin lesion aprox 2 cm in irregular distribution LABS: none IMPRESSION: 1. Hypertension, unspecified type 2. Chronic sinusitis, unspecified location 3. Epistaxis 4. Skin lesion 5. Atrial fibrillation, unspecified type (CMS/HCC) 6. Pacemaker 7. Depression, unspecified depression type 8. Dementia without behavioral disturbance, psychotic disturbance, mood disturbance, or anxiety, unspecified dementia severity, unspecified dementia type (CMS/HCC) 9. Pure hypercholesterolemia PLAN: Pt with htn bp is acceptable today pt will continue current regimen of losartan recent lab work shows stable renal function and normal lytes Pt with afib now s/p watchman's device pt has pacer pt follows with cards has f/u scheduled in spring pt notes she is close to needing battery replacement. Pt remains on asa pt denies chest pain or palpitations pt is rate controlled Pt with depression remains controlled pt to continue current regimen of zoloft and Wellbutrin Pt with dementia will defer management pt is on aricept pt has f/u with neuro next week Pt with chronic sinusitis and at time nose bleeds referral now placed to ENT Pt with scaly hard skin lesion right medial knee will re-refer pt to derm Pt with high cholesterol last ldl at goal < 70 pt to continue current statin therapy Pt to f/u with me in 6 months Myself and my colleagues have maintained a long-term, longitudinal relationship with this patient, overseeing care of chronic conditions including high cholesterol and hypertension. This care relationship has significantly influenced my decision making and treatment plans during today's encounter. Orders Placed This Encounter Procedures Ambulatory referral to ENT Ambulatory referral to Dermatology ADDITIONAL ORDERS: None Riley Desri MD on 07/03/2024 at 11:13 AM EST documented in this encounter Plan of Treatment Upcoming Encounters Date Type Department Care Team (Late st Contact Info) Description 08/13/2024 10:30 AM EST Office Visit Adult Medicine [address] [phone] Riley Desir MD [address] [place] [phone] 01/02/2025 11:00 AM EDT Office Visit Adult Medicine [address] [phone] Riley Desir MD [address] [place] [phone] 01/23/2025 11:00 AM EDT Ancillary Procedure [facility] [address] [facility] [address] [place] [phone] 02/26/2025 11:00 AM EDT Office Visit Endocrinology - [place] [address] [place] [address] America Felipe PA [address] [place] [address] 03/07/2025 11:30 AM EDT Office Visit Pulmonolgy - [place] [facility] [address] [place] [address] Elisa Plascencia MD [address] [facility] [address] [place] [address] Scheduled Referrals Name Type Priority Associated Diagnoses Order Schedule Ambulatory referral to ENT Outpatient Referral Routine Chronic sinusitis, unspecified location Epistaxis 1 Occurrences starting 07/03/2024 until 07/03/2025 Ambulatory referral to Dermatology Outpatient Referral Routine Skin lesion 1 Occurrences starting 07/03/2024 until 07/03/2025 documented as of this encounter Visit Diagnoses Diagnosis Hypertension, unspecified type- Primary Chronic sinusitis, unspecified location Epistaxis Skin lesion Unspecified disorder of skin and subcutaneous tissue Atrial fibrillation, unspecified type (CMS/HCC) Pacemaker Cardiac pacemaker in situ Depression, unspecified depression type Dementia without behavioral disturbance, psychotic disturbance, mood disturbance, or anxiety, unspecified dementia severity, unspecified dementia type (CMS/HCC) Pure hypercholesterolemia Encounter for adjustment or management of cardiac device documented in this encounter Additional Health Concerns Assessment Noted Time PHQ-9 Depression Total Score: 1 05/30/20 24 9:10 AM EST A fall risk assessment has been complete d for the patient 05/30/2024 9:08 AM EST documented as of this encounter Care Teams Bezel Cutter Relationship Specialty Start Date End Date Riley Desir MD [address] [place] [address] PCP - General 07/19/05 documented as of this encounter
--- OUTSIDE RECORDS SUMMARY | 2024-07-24 08:43 | XMS_ITS ---
Author Organization [address] Address [address] [place] [phone] Phone Care Team Providers Care Platform Engineer Name Role Phone Riley Desir MD Primary Care Provider [phone] Transitional Care Management Status:Ongoing (Active) Start date:07/22/2024 Enrollment date:07/22/2024 Enrollment reason:Identified using hospital discharge data Case Team Name Relationship Phone Roxanna Ramos LPN Care Manager(Responsible Staff) Continued Care and Services Coordination
--- OUTSIDE RECORDS SUMMARY | 2024-07-24 08:43 | XMS_ITS | Data Portability ---
Author Organization [place] - [facility], [facility] Address [address] [place] [id number] Care Team Providers Care Senior Quality Technician Name Role Phone [facility] OTHER ALVERTO [facility]ANTA Primary Care Provider Assessment Encounter Date Assessment Date Assessment LastModified by Organization Details LastModified Time 09/19/2018 09/19/2018 Overview/Histor y: 73 yo female with a PMH of Reactive Airway Disease, hypertension, high cholesterol, afib who presents with complain of severe dry cough, shortness of breath, chest tightness X3 days. Patient also reports prolonged coughing spells during which she can't catch her breath. She states that her back muscles and ribs are hurting due to coughing so much. She denied fever, chills, nausea, vomiting, chest pain, palpitations, nasal congestion or sore throat. Exam: elderly female who appears acutely ill, in mild distress secondary to shortness of breath, non-toxic appearance; she is alert and oriented X3; speach and behavior appropriate Oropharynx moist without erythema or exudate. Nasal passages are patent, no lesions or discharge; No cyanosis heart sounds are irregularly irregular. No murmurs, rubs or gallops. Normal peripheral perfusion. Lung sounds are decreased in all marvin; scattered bilateral expiratory rhonchi; mild respiratory distress, unable to speak full sentences; no assessory muscle use. DDx considered, but not limited to: URI Bronchitis Reactive airway disease exacerbation Pneumonia Acute respiratory distress Work up/Results: Rapid Flu - negative chest xray - cancelled; escalated to the ED Plan/Discussion : - based on clinical presentation bronchitis with cocurrent exacerbation of reactive airway disease are most likely diagnosis - patient was given: DuoNeb treatment once; Solumedrol 125mg IV; Prednisone 40mg PO once Doxycycline 100mg once - Provided treatments had minimal effect on breathing; patient reported no improvement of symptoms and felt like her shortness of breath and chest tightness are distressing her - at this time further evaluation at the hospital was recommended and patient agreed to transport - 911 called for ambulance transport; this provider remained on scene until ambulance arrived; report and transfer of care to [facility]; patient was transported to [facility] per her request In order to obtain further information and compare any laboratory results/values, I have accessed patient records on the [employer]. This information was pertinent in my medical decision making today. Time On Scene with Patient: 01:25:11 - Referred - Point of Care: ED nena Not available 09/21/2018 00:57:02 Plan of Treatment Reminders Order Date Submit Date Provider Last Modified By Organization Details Last Modified Time Details Appointments None recorded. Lab rapid flu (A+B) 2018 nena [facility], [address] [place] [address], [id number], 9 14:22:39 Referral None recorded. Procedures None recorded. Surgeries None recorded. Imaging XR, chest, 2 view [address] ([facility]), [address] [place] [address], [id number], 9 12:39:25 Medication Orders Tussin DM 10 mg-100 mg/5 mL oral liquid 2018 [facility], [address] [place], [address], 9 14:22:46 ipratropi um 0.5 mg-albute rol 3 mg (2.5 mg base)/3 mL nebulizat ion soln 2018 019 [email or web address] Not available 9 09:08:34 prednison e 10 mg tablet 2018 019 [email or web address] Not available 9 09:08:34 ProAir HFA 90 mcg/actua tion aerosol inhaler 04/2018 INTERFACE [facility], [address] [place] [address], [id number], 9 14:22:46 prednison e 20 mg tablet 2018 [facility], [address] [place] [address], [id number], 9 14:22:44 doxycycli ne hyclate 100 mg capsule 2018 [facility], [address] [place] [address], [id number], 9 14:22:39 doxycycli ne hyclate 100 mg capsule 2018 [facility], [address] [place] [address], [id number], 9 14:22:44 Solu-Medr ol (PF) 125 mg/2 mL solution for injection 2018 [email or web address] Not available 09:08:34 Patient TargetsNo targets recorded. Patient Instructions Encounter Date Encounter Id Patient Instructions Last Modified By Organization Details Last Modified Time 09/19/2018 [id number] Acute Bronchitis Instructions YOU WERE SEEN FOR COUGH AND SHORTNESS OF BREATH TODAY. YOUR FLU TEST WAS NEGATIVE YOU WERE GIVEN: A DUONEB BREATHING TREATMENT ONCE PREDNISONE 40MG ONCE; THE REST OF THE PRESCRIPTION SENT TO THE PHARMACY DOXYCYCLINE 100MG ONE; THE REST OF THE PRESCRIPTION SENT TO THE PHARMACY SOLUMEDROL 125MG IV ONCE ADDITIONAL PRESCRIPTION SENT TO THE PHARMACY: PROAIR INHALER TUSSIN COUGH SYRUP PLEASE COMPLETE CHEST X-RAY AT YOUR CONVINIENCE FOLLOW UP WITH YOUR PRIMARY CARE DOCTOR WITHIN 3-4 DAYS OR SOONER IF YOUR SYMPTOMS WORSEN SEEK IMMEDIATE MEDICAL ATTENTION OR CALL 911 IF YOUR SYMPTOMS WORSEN OR IF YOU DEVELOP ANY NEW CONCERNING SYMPTOMS. BASIC INFORMATION Acute bronchitis is swelling and irritation in the air passages of your lungs. This irritation may cause you to cough or have other breathing problems. Acute bronchitis often starts because of another viral illness, such as a cold or the flu. The illness spreads from your nose and throat to your windpipe and airways. Bronchitis is often called a chest cold. Acute bronchitis lasts about 2 weeks and is usually not a serious illness. Most cases of bronchitis DO NOT require antibiotics. INSTRUCTIONS Medicines: Ibuprofen or acetaminophen: These medicines help lower a fever and treat aches. Refer to the bottles for proper dosing based on age and weight. Use as needed. Do not take either of these medicines for more than 3 days in a row. Prolonged use of Ibuprofen can hurt your kidney and stomach. Prolonged use of Tylenol can injure your liver. Cough medicine: Ujey-oyt-cjihvaq (OTC) medicine helps loosen mucus in your lungs and make it easier to cough up. OTC cough medicine should NOT be used in children under age 3. Inhalers: You may need an inhaler to help you breathe easier and cough less. Inhalers help to relax the airways An inhaler gives medicine in a mist form so that you can breathe it into your lungs. If you were given an inhaler, take 2 puffs, four times per day for 2 days. After that, just use as needed for increased coughing, wheezing or tightness in chest. Steroid medicine: You may have been given prednisone or another steroid medication which helps open your air passages so you can breathe easier. Antibiotics: In most cases, antibiotics are not necessary for bronchitis. However, if your provider did prescribe these for you, please complete the entire course. You should also ask your pharmacist for a good thvm-xap-vhowdpx probiotic to take while you are on the antibiotic to help prevent antibiotic induced diarrhea. A good probiotic should have two species of live, active cultures. How to use an inhaler: 1) Shake the inhaler well to make sure you get the correct amount of medicine per puff. Remove the cover from your inhaler's mouthpiece. 2) Exhale as much air from your lungs as you can. Put the mouthpiece in your mouth, past your front teeth and rest it on the top of your tongue. Do not block the mouthpiece opening with your tongue. 3) Breathe in through your mouth at a slow and steady rate. As you do this, press the inhaler to release the puff of medicine. When your lungs are full, hold your breath for 10 seconds. Then breathe out slowly through puckered lips or through your nose. 4) If you need to take more puffs, wait at least 1 minute between each puff. 5) Using a spacer / air chamber ensures that you get the maximum amount of medicine from the inhaler. 6) Rinse your mouth with water after you use the inhaler. This may keep you from getting a mouth infection or irritation. 7) Follow the instructions that come with your inhaler to clean it. Self Care: 1) Do not smoke or allow others to smoke around you. Please call the [employer] Quit Line at to help in smoking cessation. Avoid chemicals, fumes, and dust. 2) Stay well hydrated 3) Seek care immediately if you: - develop a fever - develop a rash - become increasingly short of breath or you do not begin to improve 3-5 days (it may take 10 days for complete improvement) - cough up blood - have chest pain unrelated to coughing 4) Make appointment to follow up with you doctor within one week or sooner if directed by your [facility] provider. If you develop any new or worsening symptoms and need after hours care, please go to nearest ER and/or call 911. If you have additional concerns or develop a change in your condition between 8am-10pm, please call [facility] at [phone] to help navigate your care. nena Not available 09/19/2018 14:22:33 Reason for Referral None Reported. Results Created Date Observation Date Name Description Value Unit Range Abnormal Flag Note LastModifiedBy Organization Detail LastModifiedTime 09/20/19 19 09/19/2018 rapid flu (A+B) Flu A negati ve Not Available [facility] [address] [place], [address], 09/19/2018 13:29:35 09/20/1909/19/2018 rapid flu (A+B) Flu B negati ve Not Available [facility] [address] [place], [address], 09/19/2018 13:29:35 11/09/19 19 11/04/2018 XR, chest , 2 view No observ ation record ed. [facility] ([facility]) [address] [place], [address], 11/08/2018 12:58:31 Result Notes None recorded. Procedures Surgical History Date Name Laterality Status Provider Name and Address Organization Details Recorded Time 9 Nebulizer treatment - DH completed KITTY RYAN [address], [place], [address], [place] - [facility] 09/21/2018 00:40:46 Imaging Results Imaging Date Name Status LastModified by Organiz ation Details LastModified Time 11/04/2018 XR, chest, 2 view completed [facility] ([facility]) [address] [place], [address], 11/08/2018 12:58:31 Procedure Notes None recorded. Medical Equipment None Reported. Allergies No known drug allergies Medications Name Sig Start Date Stop Date Status Note LastModified by Organization Details LastModified Time prednisone 10 mg tablet 40 mg PO administe red on scene. Time administe red: 1340 2018 active Not Available Not Available Not Avai lable doxycycline hyclate 100 mg capsule Take 1 capsule twice a day by oral route as directed for 5 days. 2018 active Not Available Not Available Not Avai lable ipratropium 0.5 mg-albutero l 3 mg (2.5 mg base)/3 mL nebulizatio n soln Albuterol 2.5 mg & Atrovent 0.5 mg solution nebulized on scene. Time administe red: 1340 2018 active Not Available Not Available Not Avai lable amiodarone 200 mg tablet 09/19 completed Not Available Not Available Not Available prednisone 20 mg tablet Take 1 tablet every day by oral route with meals for 3 days. 2018 active Not Available Not Available Not Avai lable alendronate 70 mg tablet 09/19 completed Not Available Not Available Not Available sertraline 100 mg tablet active Not Available Not Available Not Available simvastatin 40 mg tablet active Not Available Not Available Not Available oxycodone-a cetaminophe n 5 mg-325 mg tablet active Not Available Not Available No t Available cephalexin 500 mg capsule 09/19 completed Not Available Not Available Not Available lisinopril 10 mg tablet active Not Available Not Available Not Available omeprazole 20 mg capsule,del ayed release active Not Available Not Available Not Available Tussin DM 10 mg-100 mg/5 mL oral liquid Take 10 mL every 4 hours by oral route as directed for 5 days. 2018 active Not Available Not Available Not Avai lable warfarin 1 mg tablet active Not Available Not Available No t Available enoxaparin 30 mg/0.3 mL subcutaneou s syringe active Not Available Not Available No t Available enoxaparin 40 mg/0.4 mL subcutaneou s syringe active Not Available Not Available No t Available Jantoven 5 mg tablet 09/19 completed Not Available Not Available Not Available ProAir HFA 90 mcg/actuati on aerosol inhaler Inhale 2 puffs every 4 hours by inhalatio n route. 2018 active Not Available Not Available Not Avai lable oxycodone 10 mg tablet 09/19 completed Not Available Not Available Not Available Solu-Medrol (PF) 125 mg/2 mL solution for injection 125 mg IV administe red on scene. Time administe red: 1406 2018 active Not Available Not Available Not Avai lable Fluzone Quad 2017-(PF) 60 mcg(15 mcgx4)/0.5 mL intramuscul ar syringe active Not Available Not Available N ot Available Vitals Date Recorded Heart rate Respiratory rate Oxygen saturation Oxygen saturation in Arterial blood by Pulse oximetry Body temperature Systolic blood pressure Diastolic blood pressure Provider Name and Address Organization Details Last Updated DateTime 9 70 /min 24 /min 98 % 98 % 98.2 [degF] 144 mm[Hg] 78 mm[Hg] Not Available [facility] 9 13:32:48 Social History None recorded. Functional Status None recorded. Mental Status None recorded. Family History Relationship Description Onset Age of this Age Resolved Age Notes LastModified by Organization Details LastModified Time Father No current problems or disability [email or web address] Not available 09/19 13:29:24 Mother No current problems or disability [email or web address] Not available 09/19 13:29:24 Medical History Condition Response Coronary Artery Disease N COPD N Depression N Cancer N Stroke N High Cholesterol Y Kidney Disease N Diabetes N Asthma Y Pulmonary Embolism N Hypertension Y Gynecological HistoryNo gynecological history recorded. Obstetrics History GPAL:G 0 P 0 0 0 0 Past Encounters Encounter ID Performer Location Encounter Start Date Encounter Closed Date Diagnosis/Indication Diagnosis SNOMED-CT Code Diagnosis ICD10 Code Diagnosis Note [id number] [facility] [address] [place] [address] 09/19/2018 13:24:49 09/22/2018 12:06:15 Cough 95168668 R05 Persistent cough 2297015 02 R05 Low-pitched rhonchi 5354 1006 R09.89 Dyspnea 307755152 R06.02 Health Concerns Section Related Observation LastModified by Organization Detai ls LastModified Time None Recorded Concern Status LastModified by Organization Details LastModified Time None Recorded Advance Directives Directive None Recorded Payers Encounter Date Sequence Insurance Name Policy Number Policy Rosas Covered Member ID Rosas Member ID Guarantor Name 09/19/2018 1 [facility] MEDICARE H[place] BLUE (MEDICARE REPLACEMENT HMO) Yoli Orozco [id number] Yoli Orozco Notes Date Note Type Note Provider Name and Address Organization Details Recorded Time 09/19/2018 text/html Mrs. Orozco is a 73 yo female new to and this provider who presents with persistent dry cough and shortness of breath X3 days. Patient reports increasing shortness of breath and chest tightness. Patient also reports prolonged coughing spells during which she can't catch her breath. She states that her back muscles and ribs are hurting due to coughing so much. She denied fever, chills, nausea, vomiting, chest pain, palpitations, nasal congestion or sore throat.comorbidi ties: Reactive Airway Disease, hypertension, high cholesterol, afib KITTY RYAN [address], [place], [address], [place] [facility] 09/21/2018 00:57:15 OBGyn Episode No OBEpisode recorded.
--- OUTSIDE RECORDS SUMMARY | 2024-07-24 08:44 | XMS_ITS | Clinical Summary ---
Author Organization [address] Address [address] [place] [phone] Phone Care Team Providers Care Manager Control Name Role Phone Riley Desir MD Primary Care Provider [phone] Allergies Active Allergy Reactions Criticality Noted Date Comments Other 08/12/2009 Seasonal Allergies Medications Medication Sig Dispensed Refills Start Date End Date Status nystatin (Nyamyc) 100,000 unit/gram powder APPLY 1 GRAM ON THE SKIN FOUR TIMES A DAY 4 Active ciclopirox (LOPROX) 0.77 % cream APPLY ONE APPLICATION ON THE SKIN TWICE A DAY 4 Active sertraline (ZOLOFT) 100 mg tablet Take 2 tablets (200 mg total) by mouth 1 (one) time each day. 4 Active donepeziL (ARICEPT) 10 mg tablet Take 1 Tablet by mouth at bedtime. Active gabapentin (NEURONTIN) 100 mg capsule Take 1 capsule (100 mg total) by mouth. 4 Active buPROPion XL (WELLBUTRIN XL) 150 mg 24 hr tablet Take 1 tablet (150 mg total) by mouth 1 (one) time each day. 4 Active aspirin 81 mg EC tablet Take 81 mg by mouth daily. Active ascorbic acid (Vitamin C) 500 mg chewable tablet Take 1 Tab by mouth daily. gummies Active albuterol HFA (PROAIR HFA ; PROVENTIL HFA ; VENTOLIN HFA) 90 mcg/actuation inhaler Inhale 2 Puffs into the lungs every 4 hours as needed for Cough or Wheezing. 2 Active losartan (COZAAR) 50 mg tablet Take 1 tablet (50 mg total) by mouth 1 (one) time each day. 4 Active omeprazole (PriLOSEC) [address] capsule Take 1 capsule (20 mg total) by mouth 1 (one) time each day. 4 Active denosumab (PROLIA) 60 mg/mL syringe syringe Inject 60 mg into the skin Every 6 Months. 4 Active multivitamin with minerals (MULTIPLE VITAMIN-MINERAL S ORAL) Take 1 Tab by mouth daily. Active UNABLE TO FIND TAKE ONE CAPSULE BY MOUTH EVERY DAY 4 Active cholecalciferol (VITAMIN D-3) 50 mcg (2,000 unit) capsule Take 1 capsule (2,000 Units total) by mouth 1 (one) time each day. 90 capsule 3 4 Active fluticasone propionate (FLONASE) 50 mcg/actuation nasal spray Administer 2 sprays into each nostril 1 (one) time each day. Shake gently. Before first use, prime pump. After use, clean tip and replace cap. 16 g 1 4 05/30/20 25 Active montelukast (SINGULAIR) 10 mg tablet TAKE ONE TABLET BY MOUTH AT BEDTIME 30 tablet 2 4 Active Additional Information Patient not taking.Reported on 07/03/2024 folic acid (FOLVITE) 1 mg tablet TAKE ONE TABLET BY MOUTH EVERY DAY 90 tablet 1 5 Active simvastatin (ZOCOR) 40 mg tablet TAKE ONE TABLET BY MOUTH DAILY AT BEDTIME 90 tablet 1 5 Active Allergy Relief, loratadine, 10 mg tablet TAKE ONE TABLET BY MOUTH EVERY DAY 90 tablet 1 5 Active furosemide (LASIX) 20 mg tablet Take 1 tablet (20 mg total) by mouth every other day. Or as directed for weight gain, shortness of breath or edema 45 tablet 1 5 Active fluticasone-leticia meterol (ADVAIR DISKUS) 250-50 mcg/dose diskus inhaler INHALE 1 PUFF INTO LUNGS TWO TIMES DAILY 60 each 11 5 Active loratadine (CLARITIN) 10 mg tablet Take 1 tablet (10 mg total) by mouth 1 (one) time each day. 4 07/05/19 25 Discontinued furosemide (LASIX) 20 mg tablet Take 1 Tablet by mouth every other day. Or as directed for weight gain/SOB/edema 4 06/29/19 25 Discontinued(Reo rder) folic acid (FOLVITE) 1 mg tablet Take 1 tablet (1,000 mcg total) by mouth 1 (one) time each day. 4 07/05/19 25 Discontinued fluticasone-letciia meterol (ADVAIR DISKUS) 250-50 mcg/dose diskus inhaler Inhale 1 Puff into the lungs 2 times daily for 30 days. 4 07/02/19 25 Discontinued simvastatin (ZOCOR) 40 mg tablet Take 1 tablet (40 mg total) by mouth at bedtime. 4 07/05/19 25 Discontinued Active Problems Problem Noted Date Diagnosed Date Dementia without behavioral disturbance, psychotic disturbance, mood disturbance, or anxiety 07/03/2024 Elevated TSH 04/07/2022 Elevated parathyroid hormone 04/07/2022 Vitamin D deficiency 04/07/2022 Osteoporosis 03/09/2022 Overview (04/25/2024): Dexa Scan 02/2022 Prediabetes 11/18/2021 Chest pain on exertion 08/15/2020 Overview (04/25/2024): Chest pain on exertion Dyspnea on exertion 08/15/2020 Overview (04/25/2024): Dyspnea on exertion Last Assessment & Plan: Worsening dyspnea on exertion. I did increase the rate response on the pacemaker given her rate histograms suggest that she does not get up into the 70 or 80 bpm range very often. She likely has some congestion given she came off of Lasix. I will check a BNP and have her use every other day Lasix 20 mg and see how she responds. I encouraged her to continue efforts at losing weight which she is quite motivated to do. Osteoarthritis of both knees 03/13/2020 Rotator cuff tendonitis, unspecified laterality 03/13/2020 Pacemaker 05/30/2018 Overview (04/25/2024): Normally functioning dual-chamber [employer] pacemaker followed with Latitude remote monitoring. Last Assessment & Plan: Rate sensor made more sensitive to increase heart rate with activity. Continue remote monitoring Low back pain with sciatica 12/01/2017 Dysphagia 02/03/2016 Overview (04/25/2024): Chronic mild dysphagia related to esophageal dysmotility. Atrial fibrillation 01/16/2014 Overview (04/25/2024): :Chronic atrial fibrillation rate with AV node ablation and permanent pacemaker with a dual-chamber [employer] device. This was placed in November 2017. She has had the rate sensor active to provide chronotropic response. She ultimately had a watchman placed due to chronic nosebleeds. She is on lifelong aspirin. [id number]- VASc score is a 3 for hypertension, female gender and age. Is now moving to a 4 she passes the age of 76. Last Assessment & Plan: Doing well with atrial fibrillation, complete heart block and a permanent pacemaker. She has a watchman left atrial appendage closure and is fine on aspirin. She has 1 year battery longevity remaining and when she hits elective replacement indicators we will schedule a pacemaker replacement. This should be neck spring sometime. Continue remote monitoring of her device. Hypertension 09/14/2013 Overview (04/25/2024): Primary hypertension. No secondary etiology. Treated with losartan. Last Assessment & Plan: Well-controlled blood pressure on losartan. She does try and follow a low-sodium diet. She is committed to exercising more regularly and has a stationary bicycle that she recently purchased. GERD (gastroesophageal reflux disease) 3 Gallstone 03/16/2012 COPD (chronic obstructive pulmonary disease) Overview (04/25/2024): Dr. Plascencia Severe obesity (BMI 35.0-39.9) with comorbidity 09/15/2010 Diverticulitis of colon without hemorrhage 08/09 Depression 07/12/2006 Pure hypercholesterolemia 04/11/2006 Overview (04/25/2024): Elevated LDL. Treated with simvastatin with excellent response. Normal triglycerides. Last Assessment & Plan: Outstanding lipid profile on simvastatin. Encounters Date Type Department Care Team Description 07/03/2024 11:30 AM EST Office Visit [address] [phone] Riley Desir MD Hypertension, unspecified type (Primary Dx); Chronic sinusitis, unspecified location; Epistaxis; Skin lesion; Atrial fibrillation, unspecified type (CMS/HCC); Pacemaker; Depression, unspecified depression type; Dementia without behavioral disturbance, psychotic disturbance, mood disturbance, or anxiety, unspecified dementia severity, unspecified dementia type (CMS/HCC); Pure hypercholesterolemia 06/29/2024 Telephone [facility] [address] [facility] [address] [place] [address] Rochelle Hidalgo MA Med Refill (Incoming fax S&S Lasix 20mg ) 05/30/2024 9:00 AM EST Office Visit [facility] [address] [phone] Bobo Lyons PA Routine history and physical examination of adult (Primary Dx); Pure hypercholesterolemia; Prediabetes; Pacemaker; Hypertension, unspecified type; Gastroesophageal reflux disease, unspecified whether esophagitis present; Chronic obstructive pulmonary disease, unspecified COPD type (CMS/HCC); Atrial fibrillation, unspecified type (CMS/HCC); Chronic congestion of paranasal sinus; Skin lesion 05/07/2024 10:45 AM EST - 05/07/2024 11:59 PM EST Hospital Encounter Radiology Department - [address] [phone] Abnormal mammogram Discharge Disposition: Home or Self Care 05/07/2024 10:44 AM EST - 05/07/2024 11:59 PM EST Hospital Encounter Radiology [facility] - [address] [phone] Abnormal mammogram Discharge Disposition: Home or Self Care 05/01/2024 3:30 PM EST Ancillary Procedure [facility] [address] [facility] [address] [place] [address] 05/01/2024 11:12 AM EST - 05/01/2024 11:59 PM EST Hospital Encounter Radiology Department - [address] [phone] Encounter for screening mammogram for breast cancer Discharge Disposition: Home or Self Care from Last 3 Months Immunizations Name Administration Dates Next Due Influenza Quadravalent, 0.5m l (Fluad) 65yo and older 02/14/2020 Influenza Quadravalent, 0.5m l (Fluzone High-dose) 65yo and older 03/22/2023,02/28/2022 Influenza Quadrivalent, 0.5m l, preservative free (Fluarix; FluLaval; Fluzone) ages 6mo and older (Afluria) 3yo and older 03/31/2018 Influenza trivalent, 0.5mL ( Fluad) 65yo and older 03/12/2021,02/14/2020,02/27/2019,03/29,02/26/2015 Influenza trivalent, 0.5mL ( Fluzone High-dose) 65yo and older 02/07/2024,03/12/2021,02/26/2015 Influenza trivalent, 0.5mL, preservative free (Fluarix; FluLaval; Fluzone) ages 6mo and older (Afluria) 3 years and older 02/27/2019,03/12/2014,02/27/2013,03/07,04/11/2011,04/09/2010,04/17/2008 ,05/04/2007,05/28/2006 Influenza trivalent, with pr eservative (Fluzone; Afluria) 6mo and older 03/12/2014,02/27/2013,03/07/2012,04/11,04/09/2010,04/17/2008,05/04/2007 ,05/28/2006 Influenza, Unspecified 03/31/2018 Moderna SARS-CoV-2 COVID-19, mRNA, LNP-S, preservative free 08/18/2020 Pneumococcal conjugate 13 va lent (Prevnar 13, PCV13) 2mo and older 04/09/2016 Pneumococcal polysaccharide 23 valent (Pneumovax 23) 2yo and older 03/24/2012 RSV, bivalent, protein subun it RSVpreF, 0.5mL, Preservative Free (Arexvy) 60yo and older 04/06/2023 Td Tetanus diptheria (Tdvax) 7yo and older 04/21/2017 Tdap Tetanus diptheria acell ular pertussis (Boostrix; Adacel) 7yo and older 08/09/2006 Zoster Live 10/18/2016 Zoster recombinant (Shingrix ) 19yo and older 02/07/2024,09/20/2023 Surgical History Surgery Date Site/Laterality Comments TONSILLECTOMY PROCEDURE: HISTORICAL TONSILLECTOMY OTHER SURGICAL HISTORY PROCEDURE: [place] [facility]SD US ABLTJ UTERINE LEIOMYOMAT >= 200 CC TISS COLONOSCOPY 2001 PROCEDURE: HISTORICAL COLONOSCOPY; COMMENT: negative ESOPHAGOGASTRODUODENOSCOPY 2001 PROCEDURE: NC ESOPHAGOGASTRODUODENOSCOPY TRANSORAL DIAGNOSTIC; COMMENT: done during colonoscopy COLONOSCOPY 2 PROCEDURE: HISTORICAL COLONOSCOPY; COMMENT: diverticulosis; no polyps ESOPHAGOGASTRODUODENOSCOPY 2 PROCEDURE: NC ESOPHAGOGASTRODUODENOSCOPY TRANSORAL DIAGNOSTIC; COMMENT: normal on ppi rx UPPER GASTROINTESTINAL ENDOSCOPY 6 PROCEDURE: NC UPPER GI ENDOSCOPY PERFORMED; COMMENT: normal on ppi rx. Medical History Medical History Date Comments Depressive disorder, not els ewhere classified DX:Depressive disorder, not elsewhere classified Pure hypercholesterolemia 04/11/2006 DX:Pur e hypercholesterolemia Depressive disorder, not els ewhere classified 07/12/2006 DX:Depressive disorder, not elsewhere classified Diverticulosis of colon (wit hout mention of hemorrhage) DX:Diverticulosis of colon ( without mention of hemorrhage) Obese 09/15/2010 DX:Obese Essential hypertension, benign 09/14/2013 D X:Essential hypertension, benign Dysphagia 02/03/2016 DX:Dysphagia; CO MMENT: Chronic mild dysphagia related to esophageal dysmotility. Osteoarthritis of both knees 03/13/2020 DX: Osteoarthritis of both knees Rotator cuff tendonitis, uns pecified laterality 03/13/2020 DX:Rotator cuff tendonitis, unspecified laterality Osteoporosis 03/09/2022 DX:Osteoporosis Family History Medical History Relation Name Comments Diabetes Mother Heart attack Mother 83 Prostate cancer Paternal Grandfather Blindness Neg Hx Breast cancer Neg Hx Cataracts Neg Hx Colon cancer Neg Hx Glaucoma Neg Hx Macular degeneration Neg Hx Ovarian cancer Neg Hx Strabismus Neg Hx Relation Name Status Comments Mother Paternal Grandfather Social History Tobacco Use Types Packs/Day Years [...] care for your loved ones. For example, early childhood worker or elderly care for an older adult? [...] file Not on file Not on file Obstetrics History Para Term AB IAB SAB Ectopic Multiple Livin g Live Births 2 2 2 2 Date Outcome GA Total Labor Labor/2nd/3rd Weight Sex Type Anes PTL Jazzy A1 A5 Name Clin Term Term Last Filed Vital Signs Vital Sign Reading [...] Mass Index 36.33 07/03/2024 11:26 AM EST Plan of Treatment Upcoming Encounters Date Type Department Care Team (Late st Contact Info) Description 08/13/2024 10:30 AM EST Office Visit Adult Medicine [address] [phone] Riley Desir MD [address] [place] [phone] 01/02/2025 11:00 AM EDT Office Visit Adult Medicine [address] [phone] Riley Desir MD [address] [place] [phone] 01/23/2025 11:00 AM EDT Ancillary Procedure [facility] [address] [facility] [address] [place] [phone] 02/26/2025 11:00 AM EDT Office Visit Endocrinology - [place] [address] [place] [phone] America Felipe PA [address] [place] [address] 03/07/2025 11:30 AM EDT Office Visit Pulmonolgy - [place] [address] [facility] [address] [place] [phone] Elisa Plascencia MD [address] [facility] [address] [place] [address] Health Maintenance Due Date Last Done Comments Medicare Annual Wellness Visit 05/29/2022 Depression Screening 05/30/2025 05/30/2024 Falls Risk Assessment 05/30/2025 05/30/2024 Social Influencers of Health Screening 05/30/2025 05/30/2024 Hypertension/CHF/CAD Annual BMP Blood Test 06/07/2025 06/07/2024, 03/06/2024, 03/06/2024, Additional history exists DTaP,Tdap,and Td Vaccines (3 - Td or Tdap) 04/21/2027 04/21/2017, 08/09/2006 Cholesterol Screening (Lipid Panel) 06/07/2029 06/07/2024, 01/03/2024, 01/03/2024 Osteoporosis Screening (Bone Density Screening) 03/08/2032 03/08/2022, 05/18/2017 Pneumococcal Vaccine: 65+ Years Completed 04/09/2016, 03/24/2012 Hepatitis C Screening Completed 10/18/2016 RSV Immunization Patients 60+ Years Old Completed 04/06/2023 Influenza Vaccine Completed 02/07/2024, , 02/28/2022, Additional history exists Zoster Vaccines Completed 02/07/2024, 04/0 07/2023, 10/18/2016 COVID-19 Vaccine Completed 03/06/2024, 04/2022, 05/08/2021, Additional history exists HIB Vaccines Aged Out No longer eligi ble based on patient's age to complete this topic HPV Vaccines Aged Out No longer eligi ble based on patient's age to complete this topic Hepatitis A Vaccines Aged Out No long er eligible based on patient's age to complete this topic Hepatitis B Vaccines Aged Out No long er eligible based on patient's age to complete this topic IPV Vaccines Aged Out No longer eligi ble based on patient's age to complete this topic MMR Vaccines Aged Out No longer eligi ble based on patient's age to complete this topic Meningococcal ACWY Vaccine Aged Out N o longer eligible based on patient's age to complete this topic RSV Immunization Patients Under 20 months Aged Out No longer eligible based on patient's age to complete this topic Varicella Vaccines Aged Out No longer eligible based on patient's age to complete this topic Medical Devices Implanted Type Area Pier Master Device Identifier Shelf Expiration Date Model / Serial / Lot Bsci-Crm [id number] Implanted:04/2018 (Quantity not on file) Cardiac Pacemaker [employer] CARD [employer]HY[employer] MGMT [id number] / [id number] / Occluder Watchman Pebax Nit Plat Iridium Pet 27mm L75cm Od12 - [id number] - [id number] Implanted:Qty : 1 on 11/03/2020 by Awais Richard MD N/A: Heart Prov[employer] Link [id number] / [id number] / Description:KEZIA Procedures Procedure Name Priority Date/Time Associated Diagnosis Comments BASIC METABOLIC PANEL Routine 06/07/2024 9:14 AM EST Routine history and physical examination of adult COMPLETE BLOOD COUNT Routine 06/07/2024 9:14 AM EST Routine history and physical examination of adult Hypertension, unspecified type HEMOGLOBIN A1C Routine 06/07/2024 9:14 AM EST Prediabetes LIPID PANEL WITH REFLEX TO DIRECT LDL Routine 06/07/2024 9:14 AM EST Routine history and physical examination of adult Pure hypercholesterolemia US BREAST LIMITED LEFT Routine 05/07/2024 11:11 AM EST Abnormal mammogram MG MAMMO DIGITAL DIAGNOSTIC W GARRY LEFT Routine 05/07/2024 10:57 AM EST Abnormal mammogram CARDIAC DEVICE CHECK- REMOTE- MURJ Routine 05/01/2024 3:29 PM EST MG MAMMO DIGITAL SCREENING W GARRY BILAT Routine 05/01/2024 11:33 AM EST Encounter for screening mammogram for breast cancer DXA BONE DENSITY STUDY 1+ SITS AXIAL SKEL Routine 03/08/2022 1:57 PM EDT Other specified disorders of bone density and structure, unspecified site HM HEPATITIS C SCREENING Routine 10/18/2016 from Last 3 Months or Most Recently Relevant to Health Maintenance Results * Lipid panel with reflex to direct LDL (06/07/2024 9:14 AM EST) Cholesterol 163 0 - 200 mg/dL LAB CHEMISTRY METHOD 06/07/2024 1:09 PM [facility] Triglycerides 76 0 - 150 mg/dL LAB CHEMISTRY METHOD 06/07/2024 1:09 PM [facility] HDL 83 >=40 mg/dL LAB CHEMISTRY METHOD 06/07/2024 1:09 PM [facility] LDL Calculated 65 0 - 100 mg/dL LAB CHEMISTRY METHOD 06/07/2024 1:09 PM [facility] VLDL Cholesterol Mauro 15.2 mg/dL LAB CHEMISTRY METHOD 06/07/2024 1:09 PM [facility] Non HDL Chol. (LDL+VLDL) 80 <145 mg/dL LAB CHEMISTRY METHOD 06/07/2024 1:09 PM [facility] Chol/HDL Ratio 2.0 0.0 - 4.4 LAB CHEMISTRY METHOD 06/07/2024 1:09 PM [facility] Blood Venous blood specimen / Unknown Venipuncture / Unknown 06/07/2024 9:14 AM EST 06/07/2024 9:14 AM EST Bobo TANG LAB BLOOD ORDER ALTAGRACIA [facility] [address] [place] [address], * (ABNORMAL) Complete blood count (06/07/2024 9:14 AM EST) [facility] Signature WBC 7.2 4.8 - 10.8 K/mcL LAB HEMETOLOGY METHOD 06/07/2024 10:26 AM [facility] RBC 3.70(L) 3.80 - 4.80 M/mcL LAB HEMETOLOGY METHOD 06/07/2024 10:26 AM [facility] Hemoglobin 11.3(L) 11.5 - 16.0 g/dL LAB HEMETOLOGY METHOD 06/07/2024 10:26 AM [facility] Hematocrit 33.3(L) 35.0 - 47.0 % LAB HEMETOLOGY METHOD 06/07/2024 10:26 AM [facility] MCV 90.2 79.0 - 98.0 FL LAB HEMETOLOGY METHOD 06/07/2024 10:26 AM [facility] MCH 30.6 27.0 - 32.0 pcg LAB HEMETOLOGY METHOD 06/07/2024 10:26 AM [facility] MCHC 33.9 32.0 - 37.0 g/dL LAB HEMETOLOGY METHOD 06/07/2024 10:26 AM [facility] RDW 14.7 11.0 - 15.0 % LAB HEMETOLOGY METHOD 06/07/2024 10:26 AM [facility] Platelets 193 130 - 400 K/mcL LAB HEMETOLOGY METHOD 06/07/2024 10:26 AM [facility] MPV 10.7 7.0 - 11.0 FL LAB HEMETOLOGY METHOD 06/07/2024 10:26 AM [facility] NRBC 0.0 <1.0 % LAB HEMETOLOGY METHOD 06/07/2024 10:[address] [facility] NRBC Absolute 0.00 <0.10 K/mcL LAB HEMETOLOGY METHOD 06/07/2024 10:[address] [facility] Blood Venous blood specimen / Unknown Venipuncture / Unknown 06/07/2024 9:14 AM EST 06/07/2024 9:14 AM EST Bobo TANG LAB BLOOD ORDER ALTAGRACIA Performing Organization Address City/[facility]/ZIP Co de Phone Number [facility] [address] [place] [address], [place] [phone] * Hemoglobin A1c (06/07/2024 9:14 AM EST) Hemoglobin A1C 5.1 <6.5 % LAB CHEMISTRY METHOD 06/07/2024 2:03 PM [facility] Mean Bld Glu Estim. 100 mg/dL LAB CHEMISTRY METHOD 06/07/2024 2:03 PM [facility] Blood Venous blood specimen / Unknown Venipuncture / Unknown 06/07/2024 9:14 AM EST 06/07/2024 9:14 AM EST Bobo TANG LAB BLOOD ORDER ALTAGRAC[facility] [address] [place] [address], [place] [phone] * (ABNORMAL) Basic metabolic panel (06/07/2024 9:14 AM EST) Sodium 136 133 - 145 mmol/L LAB CHEMISTRY METHOD 06/07/2024 1:06 PM [facility] Potassium 4.2 3.5 - 5.5 mmol/L LAB CHEMISTRY METHOD 06/07/2024 1:06 PM [facility] Chloride 103 96 - 110 mmol/L LAB CHEMISTRY METHOD 06/07/2024 1:06 PM [facility] CO2 24 21 - 32 mmol/L LAB CHEMISTRY METHOD 06/07/2024 1:06 PM [facility] Anion Gap 9 3 - 11 LAB CHEMISTRY METHOD 06/07/2024 1:06 PM [facility] Glucose 114(H) 70 - 100 mg/dL LAB CHEMISTRY METHOD 06/07/2024 1:06 PM [facility] BUN 14 5 - 25 mg/dL LAB CHEMISTRY METHOD 06/07/2024 1:06 PM [facility] Creatinine 0.92 0.50 - 1.10 mg/dL LAB CHEMISTRY METHOD 06/07/2024 1:06 PM [facility] eGFR 64 >=60 mL/min/1. 73m2 LAB CHEMISTRY METHOD 06/07/2024 1:06 PM [facility] Comment:Calculation based on the??Chronic Kidney Disease Epidemiology Collaboration (CKD-EPI) equation refit??without adjustment for race. BUN/Creatinine Ratio 15.2 LAB CHEMISTRY METHOD 06/07/2024 1:06 PM [facility] Calcium 9.4 8.5 - 10.5 mg/dL LAB CHEMISTRY METHOD 06/07/2024 1:06 PM [facility] Blood Venous blood specimen / Unknown Venipuncture / Unknown 06/07/2024 9:14 AM EST 06/07/2024 9:14 AM EST Bobo TANG LAB BLOOD ORDER ALTAGRACIA [facility] [address] [place] [address], * US Breast Limited Left (05/07/2024 11:11 AM EST) Anatomical Region Laterality Modality Breast Left Ultrasound 05/07/2024 11:1 8 AM EST Addenda Addendum by Beba Melchor MD on 05/07/2024 11:19 AM EST LEFT DIGITAL DIAGNOSTIC 3D MAMMOGRAPHY HISTORY: Workup for upper outer focal asymmetry at middle depth COMPARISON: Mammogram from 05/01/2024 Technique: CC and MLO spot compression 3-D, full-field ML 3-D FINDINGS: Left breast upper outer focal asymmetry at middle depth becomes equal in density on spot compression and is consistent with benign summation of fibroglandular tissue. Sonographic evaluation demonstrates no focal abnormality BREAST DENSITY: B - There are scattered areas of fibroglandular density. EXAM: LEFT BREAST TARGETED ULTRASOUND EVALUATION HISTORY: ??Workup for upper outer focal asymmetry at middle depth TECHNIQUE: Ultrasonographic examination is performed using a ??linear array transducer. Targeted left breast ultrasound from 12:00 to 3:00 to evaluate mammographic finding. Real-time sonographic scanning was also performed by the radiologist FINDINGS: From 12:00 to 3:00, no sonographic evidence of malignancy or other focal abnormalities were identified at the left breast in area of mammographic concern IMPRESSION: No mammographic or sonographic evidence of malignancy BI-RADS CATEGORY: 2 - BENIGN RECOMMENDATION: Return to annual mammography. -------- FINAL REPORT -------- Dictated By: Beba Melchor Dictated Date: 05/07/2024 11:18 ET Assigned Physician: Beba Melchor Reviewed and Electronically Signed By: Beba Melchor Signed Date: 05/07/2024 11:19 ET Workstation ID: [id number] Transcribed By: Self Edit Transcribed Date: 05/07/2024 11:18 ET Impressions 05/07/2024 11:19 AM EST No mammographic or sonographic evidence of malignancy BI-RADS CATEGORY: 2 - BENIGN RECOMMENDATION: Return to annual mammography. -------- FINAL REPORT -------- Dictated By: Beba Melchor Dictated Date: 05/07/2024 11:18 ET Assigned Physician: Beba Melchor Reviewed and Electronically Signed By: Beba Melchor Signed Date: 05/07/2024 11:19 ET Workstation ID: [id number] Transcribed By: Self Edit Transcribed Date: 05/07/2024 11:18 ET Narrative 05/07/2024 11:19 AM EST LEFT DIGITAL DIAGNOSTIC 3D MAMMOGRAPHY HISTORY: Workup for upper outer focal asymmetry at middle depth COMPARISON: Mammogram from 05/01/2024 Technique: CC and MLO spot compression 3-D, full-field ML 3-D FINDINGS: Left breast upper outer focal asymmetry at middle depth becomes equal in density on spot compression and is consistent with benign summation of fibroglandular tissue. Sonographic evaluation demonstrates no focal abnormality BREAST DENSITY: B - There are scattered areas of fibroglandular density. EXAM: LEFT BREAST TARGETED ULTRASOUND EVALUATION HISTORY: ??Workup for upper outer focal asymmetry at middle depth TECHNIQUE: Ultrasonographic examination is performed using a ??linear array transducer. Targeted left breast ultrasound from 12:00 to 3:00 to evaluate mammographic finding. Real-time sonographic scanning was also performed by the radiologist FINDINGS: From 12:00 to 3:00, no sonographic evidence of malignancy or other focal abnormalities were identified at the left breast in area of mammographic concern Procedure Note Beba Melchor MD - 05/07/2024 LEFT DIGITAL DIAGNOSTIC 3D MAMMOGRAPHY HISTORY: Workup for upper outer focal asymmetry at middle depth COMPARISON: Mammogram from 05/01/2024 Technique: CC and MLO spot compression 3-D, full-field ML 3-D FINDINGS: Left breast upper outer focal asymmetry at middle depth becomes equal indensity on spot compression and is consistent with benign summation offibroglandular tissue. Sonographic evaluation demonstrates no focalabnormality BREAST DENSITY: B - There are scattered areas of fibroglandular density. EXAM: LEFT BREAST TARGETED ULTRASOUND EVALUATION HISTORY: Workup for upper outer focal asymmetry at middle depth TECHNIQUE: Ultrasonographic examination is performed using a linear arraytransducer. Targeted left breast ultrasound from 12:00 to 3:00 to evaluatemammographic finding. Real-time sonographic scanning was also performed bythe radiologist FINDINGS: From 12:00 to 3:00, no sonographic evidence of malignancy or other focalabnormalities were identified at the left breast in area of mammographicconcern IMPRESSION: No mammographic or sonographic evidence of malignancy BI-RADS CATEGORY: 2 - BENIGN RECOMMENDATION: Return to annual mammography. -------- FINAL REPORT -------- Dictated By: Beba Melchor Dictated Date: 05/07/2024 11:18 ET Assigned Physician: Beba Melchor Reviewed and Electronically Signed By: Beba Melchor Signed Date: 05/07/2024 11:19 ET Workstation ID: [id number] Transcribed By: Self Edit Transcribed Date: 05/07/2024 11:18 ET Riley Desir MD IMG US PROCEDURES * MG Mammo Digital Diagnostic w Garry Left (05/07/2024 10:57 AM EST) Anatomical Region Laterality Modality Breast Left Mammography 05/07/2024 11:0 2 AM EST Addenda Addendum by Beba Melchor MD on 05/07/2024 11:18 AM EST LEFT DIGITAL DIAGNOSTIC 3D MAMMOGRAPHY HISTORY: Workup for upper outer focal asymmetry at middle depth COMPARISON: Mammogram from 05/01/2024 Technique: CC and MLO spot compression 3-D, full-field ML 3-D FINDINGS: Left breast upper outer focal asymmetry at middle depth becomes equal in density on spot compression and is consistent with benign summation of fibroglandular tissue. Sonographic evaluation demonstrates no focal abnormality BREAST DENSITY: B - There are scattered areas of fibroglandular density. EXAM: LEFT BREAST TARGETED ULTRASOUND EVALUATION HISTORY: ??Workup for upper outer focal asymmetry at middle depth TECHNIQUE: Ultrasonographic examination is performed using a ??linear array transducer. Targeted left breast ultrasound from 12:00 to 3:00 to evaluate mammographic finding. Real-time sonographic scanning was also performed by the radiologist FINDINGS: From 12:00 to 3:00, no sonographic evidence of malignancy or other focal abnormalities were identified at the left breast in area of mammographic concern Impression: 1. ??No mammographic or sonographic evidence of malignancy.: 2. Scattered fibroglandular tissue BI-RADS CATEGORY: 2 - BENIGN RECOMMENDATION: Screening bilateral mammogram is recommended in 1 year. Mammo Location: [facility], [address] [place] [address], [id number], . -------- FINAL REPORT -------- Dictated By: Beba Melchor Dictated Date: 05/07/2024 11:02 ET Assigned Physician: Beba Melchor Reviewed and Electronically Signed By: Beba Melchor Signed Date: 05/07/2024 11:18 ET Workstation ID: [id number] Transcribed By: Self Edit Transcribed Date: 05/07/2024 11:06 ET Impressions 05/07/2024 11:18 AM EST Impression: 1. ??No mammographic or sonographic evidence of malignancy.: 2. Scattered fibroglandular tissue BI-RADS CATEGORY: 2 - BENIGN RECOMMENDATION: Screening bilateral mammogram is recommended in 1 year. Mammo Location: [facility], [address] [place] [address], [id number], . -------- FINAL REPORT -------- Dictated By: Beba Melchor Dictated Date: 05/07/2024 11:02 ET Assigned Physician: Beba Melchor Reviewed and Electronically Signed By: Beba Melchor Signed Date: 05/07/2024 11:18 ET Workstation ID: [id number] Transcribed By: Self Edit Transcribed Date: 05/07/2024 11:06 ET Narrative 05/07/2024 11:18 AM EST LEFT DIGITAL DIAGNOSTIC 3D MAMMOGRAPHY HISTORY: Workup for upper outer focal asymmetry at middle depth COMPARISON: Mammogram from 05/01/2024 Technique: CC and MLO spot compression 3-D, full-field ML 3-D FINDINGS: Left breast upper outer focal asymmetry at middle depth becomes equal in density on spot compression and is consistent with benign summation of fibroglandular tissue. Sonographic evaluation demonstrates no focal abnormality BREAST DENSITY: B - There are scattered areas of fibroglandular density. EXAM: LEFT BREAST TARGETED ULTRASOUND EVALUATION HISTORY: ??Workup for upper outer focal asymmetry at middle depth TECHNIQUE: Ultrasonographic examination is performed using a ??linear array transducer. Targeted left breast ultrasound from 12:00 to 3:00 to evaluate mammographic finding. Real-time sonographic scanning was also performed by the radiologist FINDINGS: From 12:00 to 3:00, no sonographic evidence of malignancy or other focal abnormalities were identified at the left breast in area of mammographic concern Procedure Note Beba Melchor MD - 05/07/2024 LEFT DIGITAL DIAGNOSTIC 3D MAMMOGRAPHY HISTORY: Workup for upper outer focal asymmetry at middle depth COMPARISON: Mammogram from 05/01/2024 Technique: CC and MLO spot compression 3-D, full-field ML 3-D FINDINGS: Left breast upper outer focal asymmetry at middle depth becomes equal indensity on spot compression and is consistent with benign summation offibroglandular tissue. Sonographic evaluation demonstrates no focalabnormality BREAST DENSITY: B - There are scattered areas of fibroglandular density. EXAM: LEFT BREAST TARGETED ULTRASOUND EVALUATION HISTORY: Workup for upper outer focal asymmetry at middle depth TECHNIQUE: Ultrasonographic examination is performed using a linear arraytransducer. Targeted left breast ultrasound from 12:00 to 3:00 to evaluatemammographic finding. Real-time sonographic scanning was also performed bythe radiologist FINDINGS: From 12:00 to 3:00, no sonographic evidence of malignancy or other focalabnormalities were identified at the left breast in area of mammographicconcern IMPRESSION: Impression: 1. No mammographic or sonographic evidence of malignancy.: 2. Scattered fibroglandular tissue BI-RADS CATEGORY: 2 - BENIGN RECOMMENDATION: Screening bilateral mammogram is recommended in 1 year. Mammo Location: [facility], [address] [place] [address], [phone], . -------- FINAL REPORT -------- Dictated By: Beba Melchor Dictated Date: 05/07/2024 11:02 ET Assigned Physician: Beba Melchor Reviewed and Electronically Signed By: Beba Melchor Signed Date: 05/07/2024 11:18 ET Workstation ID: [id number] Transcribed By: Self Edit Transcribed Date: 05/07/2024 11:06 ET Riley Desir MD IMG BI PROCEDURES * Cardiac device check - Remote- MURJ (05/01/2024 3:29 PM EST) Date Time Interrogation Session [id number] CV DEVICE CHECK Type Interrogation Session Remote Scheduled CV DEVICE CHECK Implantable Pulse Generator Pier Master BSX CV DEVICE CHECK Implantable Pulse Generator Type IPG CV DEVICE CHECK Implantable Pulse Generator Model L111 CV DEVICE CHECK Implantable Pulse Generator Serial Number [id number] CV DEVICE CHECK Implantable Pulse Generator Implant Date [id number] CV DEVICE CHECK Battery Remaining Percentage 13.00 CV DEVICE CHECK Battery Remaining Longevity 8.0 CV DEVICE CHECK Battery Status Middle of Service CV DEVICE CHECK Dennis Statistic RA Percent Paced 0.00 CV DEVICE CHECK Dennis Statistic RV Percent Paced 100.00 CV DEVICE CHECK Atrial Tachy Statistic AT/AF [address] Percent 100.00 CV DEVICE CHECK Lead Channel Sensing Intrinsic Amplitude 0.300 CV DEVICE CHECK Lead Channel Setting Sensing Sensitivity 0.25 CV DEVICE CHECK Lead Channel Impedance Value 610 CV DEVICE CHECK Lead Channel RA Pacing Threshold Date 2024-04-24 CV DEVICE CHECK Lead Channel Setting Pacing Amplitude 3.000 CV DEVICE CHECK Lead Channel Setting Pacing Pulse Width 0.4 CV DEVICE CHECK Lead Channel Setting Sensing Sensitivity 0.60 CV DEVICE CHECK Lead Channel Impedance Value 592 CV DEVICE CHECK Lead Channel Pacing Threshold Amplitude 1.100 CV DEVICE CHECK Lead Channel Pacing Threshold Pulse Width 0.4 CV DEVICE CHECK Lead Channel RV Pacing Threshold Date 2024-04-23 CV DEVICE CHECK Lead Channel Setting Pacing Amplitude 1.500 CV DEVICE CHECK Lead Channel Setting Pacing Pulse Width 0.4 CV DEVICE CHECK Dennis Setting Mode (NBG Code) DDDR CV DEVICE CHECK Dennis Setting Lower Rate Limit 60 CV DEVICE CHECK Dennis Setting AT Mode Switch Rate 150 CV DEVICE CHECK Dennis Setting Maximum Tracking Rate 120 CV DEVICE CHECK Dennis Setting Maximum Sensor Rate 130 CV DEVICE CHECK Dennis Setting PAV Delay 180 CV DEVICE CHECK Dennis Setting KESHAWN Delay 150 CV DEVICE CHECK Zone Setting Type Category VT CV DEVICE CHECK Rate 160 CV DEVICE CHECK Zone Setting Status Monitor CV DEVICE CHECK Zone ID 1 CV DEVICE CHECK Date of Service 2024-05-06 CV DEVICE CHECK Anatomical Region Laterality Modality Device Interroga tion 04/25/2024 12:1 0 AM EST Impressions 05/01/2024 11:58 AM EST Normal Remote: No Events * Normal Device Function * Alerts or events: None * Battery: Battery is at 13%, 8 mos * Sensing, impedance and thresholds reviewed * Programmed parameters reviewed * Presenting rhythm reviewed * Heart Rate Histograms reviewed * No significant changes noted Narrative Procedure Note Awais Richard MD - 05/01/2024 IMPRESSION: Normal Remote: No Events * Normal Device Function * Alerts or events: None * Battery: Battery is at 13%, 8 mos * Sensing, impedance and thresholds reviewed * Programmed parameters reviewed * Presenting rhythm reviewed * Heart Rate Histograms reviewed * No significant changes noted Awais Richard MD CV IMPLANTABLE CARDI AC DEVICE PROCEDURES * (ABNORMAL) MG Mammo Digital Screening w Garry bilat (05/01/2024 11:33 AM EST) Anatomical Region Laterality Modality Breast Bilateral Mammography 05/01/2024 3:50 PM EST Impressions 05/01/2024 4:00 PM EST Asymmetric opacity in the left upper outer breast. ??Additional imaging is recommended. ??It should include spot compression views in CC and MLO projection. ??Straight lateral views TOMOSYNTHESIS. ??Ultrasound will also be needed. ??We will contact the patient for the arrangements. BI-RADS CATEGORY: 0 - INCOMPLETE - NEED ADDITIONAL IMAGING EVALUATION RECOMMENDATION: Additional left breast imaging recommended. Ultrasound is recommended for the Left Breast. Screening right mammogram is recommended in 1 year. Mammo Location: [facility], [address] [place] [address], [id number], . -------- FINAL REPORT -------- Dictated By: Bella Richardson Dictated Date: 05/01/2024 15:50 ET Assigned Physician: Bella Richardson Reviewed and Electronically Signed By: Bella Richardson Signed Date: 05/01/2024 16:00 ET Workstation ID: [id number] Transcribed By: Self Edit Transcribed Date: 05/01/2024 15:50 ET Narrative 05/01/2024 4:00 PM EST Bilateral screening mammogram. CLINICAL: 78 years old, Female, routine annual exam. COMPARISON: Prior mammograms, latest from 04/28/2023. ?? TECHNIQUE: Bilateral MLO and CC views were obtained digitally with 3-D mammogram (digital breast tomosynthesis). Computer-aided detection was utilized in evaluation of this exam (CAD). FINDINGS: There is asymmetric opacity in the left upper outer breast mid 3rd depth. ??There is no Architectural distortion. ??No worrisome calcifications are evident. ?? BREAST DENSITY: B - There are scattered areas of fibroglandular density. Riley Desir MD IMG BI PROCEDURES * DXA BONE DENSITY STUDY 1+ SITS AXIAL SKEL (03/08/2022 1:57 PM EDT) Anatomical Region Laterality Modality Bone Densitometr y 03/12/2021 11:3 1 AM EDT Narrative 03/08/2022 5:23 PM EDT BONE DENSITY SCAN (DEXA): FINDINGS: Lumbar Spine T-score is 1.1. ?? (SD relative to 20-29 y/o adult) Z-score is 3.6. ??(SD relative to age matched peers) This is considered normal by WHO criteria. Left Hip T-score is -2.6. Z-score is -0.5. This is considered osteoporosis by WHO criteria. Comparison exam(s): 05/18/2017 and 03/27/2012 Lumbar spine: No statistically significant change in bone mineral density compared with 2017. ?? 17.7% increase in bone mineral density compared with 2011, statistically significant at the 95% confidence level Left hip: 3.5% increase in bone mineral density compared with 2016 and 6.9% increase compared with 2011, both statistically significant at the 95% confidence level. Lateral survey view of the thoracolumbar spine shows no significant compression deformities of the visualized vertebral elements. ?? IMPRESSION: IMPRESSION: ?? Osteoporosis by WHO criteria. The [facility] Department of Internal Medicine recommends using National Osteoporosis Foundation (NOF) guidelines in treatment decisions related to osteoporosis. NOF guidelines suggest considering treatment for postmenopausal women and men aged 50 or older presenting with the following: History of hip or vertebral fracture. T-score = -2.5 (DXA) at the femoral neck, total hip, or spine, after appropriate evaluation to exclude secondary causes. Low bone mass (T-score between -1.0 and -2.5 at the femoral neck or spine) AND a 10-year probability of a hip fracture = 3% OR a 10-year probability of a major osteoporosis-related fracture = 20% based on the [place]-adapted WHO algorithm Please note that all treatment decisions require clinical judgment and consideration of individual patient factors, including patient preferences, co-morbidities, previous drug use, risk factors not captured in the FRAX model (e.g., frailty, falls, vitamin D deficiency, increased bone turnover, interval significant decline in bone density) and possible under- or over-estimation of fracture risk by FRAX. Optional alternative screening schedule based on donald Taylor., [facility] July 08, 2011 for patients with osteopenia (based on hip BMD T-score) is as follows: * ??advanced osteopenia (T scores -2.00 to -2.49), BMD testing every year * ??moderate osteopenia (T scores -1.50 to -1.99), BMD testing every 5 years mild osteopenia or normal BMD (T scores -1.50 and higher), BMD testing every 15 years Procedure Note Tara Uribe MD - 06/08/2022 BONE DENSITY SCAN (DEXA): FINDINGS: Lumbar Spine T-score is 1.1. (SD relative to 20-29 y/o adult) Z-score is 3.6. (SD relative to age matched peers) This is considered normal by WHO criteria. Left Hip T-score is -2.6. Z-score is -0.5. This is considered osteoporosis by WHO criteria. Comparison exam(s): 05/18/2017 and 03/27/2012 Lumbar spine: No statistically significant change in bone mineral densitycompared with 2017. 17.7% increase in bone mineral density compared with 2011, statisticallysignificant at the 95% confidence level Left hip: 3.5% increase in bone mineral density compared with 2017 and6.9% increase compared with 2011, both statistically significant at the 95% confidence level. Lateral survey view of the thoracolumbar spine shows no significantcompression deformities of the visualized vertebral elements. IMPRESSION: IMPRESSION: Osteoporosis by WHO criteria. The [facility] Department of Internal Medicine recommendsusing National Osteoporosis Foundation (NOF) guidelines in treatment decisions related toosteoporosis. NOF guidelines suggest considering treatment for postmenopausal women and menaged 50 or older presenting with the following: History of hip or vertebral fracture. T-score = -2.5 (DXA) at the femoral neck, total hip, or spine, afterappropriate evaluation to exclude secondary causes. Low bone mass (T-score between -1.0 and -2.5 at the femoral neck or spine)AND a 10-year probability of a hip fracture = 3% OR a 10-year probability of a majorosteoporosis-related fracture = 20% based on the [place]-adapted WHO algorithm Please note that all treatment decisions require clinical judgment andconsideration of individual patient factors, including patient preferences, co- morbidities,previous drug use, risk factors not captured in the FRAX model (e.g., frailty, falls, vitaminD deficiency, increased bone turnover, interval significant decline in bone density) andpossible under- or over-estimation of fracture risk by FRAX. Optional alternative screening schedule based on donald Taylor., NEJMJanuary 2011 for patients with osteopenia (based on hip BMD T-score) is as follows: * advanced osteopenia (T scores -2.00 to -2.49), BMD testing every year * moderate osteopenia (T scores -1.50 to -1.99), BMD testing every 5years mild osteopenia or normal BMD (T scores -1.50 and higher), BMD testingevery 15 years Philomena TANG IM DXA PROCEDURES * Hepatitis C Screening (10/18/2016) [facility] Hepatitis C Screening abstracted Historical Provider MD BRANDI Cueva from Last 3 Months or Most Recently Relevant to Health Maintenance Care Teams Manager Control Relationship Specialty Start Date End Date Riley Desir MD [address] [place] [id number] PCP - General 07/19/05
[2024-07-24 10:57] LABS: Anion Gap 16 (12-20); Blood Urea Nitrogen 11 mg/dL (9-16); Calcium 9.4 mg/dL (8.4-10.2); Carbon Dioxide 24 mmol/L (22-29); Chloride 101 mmol/L (96-108); Estimated Glomerular Filt Rate > 60; Glucose Fasting 84 mg/dL (60-99); Potassium 3.6 mmol/L (3.3-5.1); Sodium 137 mmol/L (135-145)
== END 2024-07-24 08:28 | disposition home or self-care (01) ==
LOC: HO.HMGCLDS 08:27
PROVIDERS: PCP Internal Medicine; Visit Provider Internal Medicine
DX: E87.1 Hypo-osmolality and hyponatremia (principal)
CPT/HCPCS: 36415; 80048

== ENCOUNTER 2025-02-13 11:43 | Outpatient (AMB) | payer MEDICARE, SELFPAY ==
--- NOTE | 2025-02-13 11:58 | MHC.OFFVIS ---
Intake Visit Reasons: 6 Months / AD Allergies No Known Allergies Allergy (Verified 07/21/24 16:50) HPI Comments Details: 79 years old woman with atrial fibrillation, with a cardiac pacemaker and Watchman device, chronic depression, and with multifactorial dementia. MRI of brain revealed moderate diffuse cerebral atrophy and moderate microvascular ischemic changes. She is presenting with concerns regarding dementia progression and associated symptoms. Diagnosed with Alzheimer's disease and dementia following an MRI a year ago, she reports worsening symptoms such as impaired decision-making, focus issues, and increased frustration due to these cognitive changes. Hearing loss is a significant concern, with a notable 30% deficit on one side accompanied by a sensation of ear blockage and crackling sounds, which adds to her imbalance and frustration. The patient has used sertraline and bupropion to manage underlying anxiety and mood disturbances, which she deems essential. Additionally, she takes donepezil for cognitive support and is considering memantine to address memory and behavioral issues. Her history includes surgery for nasal polyp removal and a pacemaker, complicating further MRIs for the head or brain, which are critical for evaluating her auditory and balance complaints. [facility] Medical History (Updated 02/13/25 @ 12:12 by Rebeca Doan MD) Cerebral microvascular disease Alzheimer dementia Mild dementia Pacemaker HTN (hypertension) HLD (hyperlipidemia) Asthma Afib Surgical History S/P hip replacement Social History Household Members: Spouse Housing: House Do you presently have visiting nurse or other home services: No Patient Tobacco Use Status: Never used Tobacco service: No Review of Systems Const Details: - Neurologic: Reports difficulty focusing, decision-making issues, increased irritability, imbalance - Auditory: Reports hearing loss (30% reduction on one side), crackling sounds, feeling of ear blockage, head pressure sensation - Mood: Reports frustration, anxiety, uses medication for management Physical Exam Neuro Other: Mental Status: Alert and oriented to person, place, and time. Normal attention. Normal spontaneous speech, fluency, and comprehension. Cranial Nerves: CN II: Visual marvin full to confrontation, visual acuity intact. CN III, IV, : Pupils equal, round, reactive to light and accommodation. Extraocular movements are normal. CN V: Facial sensation is normal. CN VII: Facial movements symmetrical. CN VIII: Hearing intact to bedside conversation is normal. CN IX, X: Palate elevates symmetrically. CN XI: Shoulder shrug and head turn symmetrical. CN XII: Tongue midline without atrophy or fasciculations. Extrapyramidal: Full facial expressions and blinking. No rigidity. Movements are appropriate with no tremor or abnormality. Speech: Normal; no dysarthria or tremor. Assessment & Plan Assessment & Plan (1) Alzheimer dementia: Comment: MRI brain WO at [facility] in November 2023: Mod diff atrophy, mod MVD. Code(s): G30.9 - Alzheimer's disease, unspecified; F02.80 - Dementia in other diseases classified elsewhere, unspecified severity, without behavioral disturbance, psychotic disturbance, mood disturbance, and anxiety Category: Medical Qualifiers: Alzheimer's disease onset: late onset Dementia severity: moderate Dementia behavioral or psychological symptom: with anxiety Qualified Code(s): G30.1 - Alzheimer's disease with late onset; F02.B4 - Dementia in other diseases classified elsewhere, moderate, with anxiety (2) Cerebral microvascular disease: Code(s): I67.89 - Other cerebrovascular disease Category: Medical (3) Multifactorial dementia: Code(s): F03.90 - Unspecified dementia, unspecified severity, without behavioral disturbance, psychotic disturbance, mood disturbance, and anxiety Category: Medical Plan Impression and recommendations: Moderately severe multifactorial (degenerative plus microvascular disease) dementia with underlying chronic anxiety and depression Rec: a: Donepezil 10mg daily b: Memantine 5mg bid Medications: New memantine 5 mg PO BID 180 tabs 0RF 90 days donepezil 10 mg PO BEDTIME 90 tabs 0RF Coding Level of Care Code Tele Est Pt Level 4 (58774) Diagnoses Moderate late onset Alzheimer's dementia with anxiety G30.1; F02.B4 Alzheimer's disease onset: late onset Dementia severity: moderate Dementia behavioral or psychological symptom: with anxiety Cerebral microvascular disease I67.89 Multifactorial dementia F03.90
--- OUTSIDE RECORDS SUMMARY | 2025-02-13 12:39 | XMS_ITS ---
Author Name [facility] Organization Unknown Care Team Organization Name Specialty Phone Email Start Date End Da te [facility] ALVERTO KIET Primary Care 04/27/2022 4
--- OUTSIDE RECORDS SUMMARY | 2025-02-13 12:39 | XMS_ITS | Clinical Summary ---
Author Organization [facility] [address] [place] [address] [place] [phone] Phone Care Team Providers [employer] Architect Name Role Phone Riley Desir MD Primary Care Provider [phone] Allergies Active Allergy Reactions Criticality Noted Date Comments Other 08/12/2009 Seasonal Allergies Medications nystatin (Nyamyc) 100,000 unit/gram powder APPLY 1 GRAM ON THE SKIN FOUR TIMES A DAY 04/18/20 24 Active ciclopirox (LOPROX) 0.77 % cream APPLY ONE APPLICATION ON THE SKIN TWICE A DAY 04/18/20 24 Active donepeziL (ARICEPT) 10 mg tablet Take 1 tablet (10 mg total) by mouth at bedtime. Active aspirin 81 mg EC tablet Take 1 tablet (81 mg total) by mouth 1 (one) time each day. Active ascorbic acid (Vitamin C) 500 mg chewable tablet Chew 1 tablet (500 mg total) 1 (one) time each day. Active multivitamin with minerals (MULTIPLE VITAMIN-MINERA LS ORAL) Take 1 Tab by mouth daily. Active UNABLE TO FIND TAKE ONE CAPSULE BY MOUTH EVERY DAY 12/05/19 24 Active cholecalcifero l (VITAMIN D-3) 50 mcg (2,000 unit) capsule Take 1 capsule (2,000 Units total) by mouth 1 (one) time each day. 90 capsule 3 05/14/20 24 Active fluticasone propionate (FLONASE) 50 mcg/actuation nasal spray Administer 2 sprays into each nostril 1 (one) time each day. Shake gently. Before first use, prime pump. After use, clean tip and replace cap. 16 g 1 05/30/20 24 025 Active Additional Information Patient taking differently:2 spray Each NostrilDaily PRN, allergies, (No instructions reported), Reported on 01/09/2025 montelukast (SINGULAIR) 10 mg tablet TAKE ONE TABLET BY MOUTH AT BEDTIME 30 tablet 2 06/05/20 24 Active Additional Information Patient not taking.Reported on 10/05/2024 fluticasone-sa lmeterol (ADVAIR DISKUS) 250-50 mcg/dose diskus inhaler INHALE 1 PUFF INTO LUNGS TWO TIMES DAILY 60 each 07/02/19 Active Additional Information Patient taking differently: 1 puff inhalation 2 times daily, Reported on 01/09/2025 albuterol HFA (PROAIR HFA ; PROVENTIL HFA ; VENTOLIN HFA) 90 mcg/actuation inhaler Inhale 2 puffs by mouth every 4 (four) hours if needed for wheezing or shortness of breath. 8.5 g 1 08/13/19 25 Active losartan (COZAAR) 50 mg tablet TAKE ONE TABLET BY MOUTH EVERY DAY 90 tablet 1 09/07/19 25 Active omeprazole (PriLOSEC) [address] capsule TAKE ONE CAPSULE BY MOUTH EVERY DAY 90 capsule 1 09/07/19 25 Active sertraline (ZOLOFT) 100 mg tablet TAKE TWO TABLETS BY MOUTH EVERY DAY 180 tablet 1 09/06/19 25 Active Additional Information Patient not taking.Reported on 01/02/2025 sertraline (ZOLOFT) 100 mg tablet Take 2 tablets (200 mg total) by mouth 1 (one) time each day. 180 tablet 09/07/19 25 Active gabapentin (NEURONTIN) 100 mg capsule TAKE ONE CAPSULE BY MOUTH DAILY AT BEDTIME 90 capsule 1 09/28/19 25 Active Additional Information Patient taking differently:100 mg oralNightly, at bedtime, Reported on 01/09/2025 furosemide (LASIX) 20 mg tablet TAKE ONE TABLET BY MOUTH EVERY OTHER DAY OR DIRECTED FOR WEIGHT GAIN,FOR SHORTNESS OF BREATH OR EDEMA 45 tablet 1 12/28/19 25 Active Additional Information Patient taking differently: 20 mg oral Every other day, Reported on 01/09/2025 simvastatin (ZOCOR) 40 mg tablet TAKE ONE TABLET BY MOUTH AT BEDTIME 90 tablet 1 12/27/19 25 Active Additional Information Patient taking differently:40 mg oralNightly, at bedtime, Reported on 01/09/2025 folic acid (FOLVITE) 1 mg tablet TAKE ONE TABLET BY MOUTH EVERY DAY 90 tablet 1 12/27/19 25 Active Allergy Relief, loratadine, 10 mg tablet TAKE ONE TABLET BY MOUTH EVERY DAY 90 tablet 1 12/27/19 25 Active denosumab (Prolia) 60 mg/mL syringe syringe Inject 1 mL (60 mg total) under the skin 1 (one) time. Active buPROPion XL (WELLBUTRIN XL) 150 mg 24 hr tablet TAKE ONE TABLET BY MOUTH EVERY DAY 90 tablet 1 01/29/20 25 Active buPROPion XL (WELLBUTRIN XL) 150 mg 24 hr tablet Take 1 tablet (150 mg total) by mouth 1 (one) time each day. 12/29/19 24 025 Discontinued acetaminophen (TYLENOL) 325 mg tablet Take 2 tablets (650 mg total) by mouth every 6 (six) hours if needed for mild pain or fever - temperature GREATER than 38 C (100.4 F) for up to 10 days. 30 tablet 01/10/20 25 025 chlorhexidine (HIBICLENS) 4 % external liquid Apply topically 2 (two) times a day for 20 doses. 120 mL 01/10/20 25 025 Active Problems Problem Noted Date Diagnosed Date CHB (complete heart block) ([facility] V24, [facility] V28) 01/09/2025 Malfunction of cardiac pacemaker battery Dementia without behavioral disturbance, psychotic disturbance, mood disturbance, or anxiety ([facility] V24, [facility] V28) 07/03/2024 Elevated TSH 04/07/2022 Elevated parathyroid hormone [...] Pacemaker 05/30/2018 Overview (04/25/2024): Normally functioning dual-chamber [employer] pacemaker followed with Latitude remote monitoring. Last Assessment & Plan: Rate sensor made more sensitive to increase heart rate with activity. Continue remote monitoring Low back pain with sciatica 12/01/2017 Dysphagia 02/03/2016 Overview (04/25/2024): Chronic mild dysphagia related to esophageal dysmotility. Atrial fibrillation (CMS/HCC V24, CMS/HCC V28) 0 01/16/2014 Overview (04/25/2024): :Chronic atrial fibrillation rate with AV node ablation and permanent pacemaker with a dual-chamber [employer] device. This was placed in November 2017. She has had the rate sensor active to provide chronotropic response. She ultimately had a watchman placed due to chronic nosebleeds. She is on lifelong aspirin. [id number]- VASc score is a 3 for hypertension, [...] disease) 3 Gallstone 03/16/2012 COPD (chronic obstructive pu lmonary disease) ([facility] V24, [facility] V28) 01/10/2012 Overview (04/25/2024): Dr. Plascencia Severe obesity (BMI 35.0-39. 9) with comorbidity ([facility] V24, [facility] V28) 09/15/2010 Diverticulitis of colon without hemorrhage 08/09 Depression 07/12/2006 Pure hypercholesterolemia 04/11/2006 Overview (04/25/2024): Elevated LDL. Treated with simvastatin with excellent response. Normal triglycerides. Last Assessment & Plan: Outstanding lipid profile on simvastatin. Encounters Date Type Department Care Team Description 01/25/2025 Telephone [facility] Cardiology [facility] [address] [phone] Aracely Richard MD 01/22/2025 6:20 PM EDT Ancillary Procedure [facility] Cardiology [facility] [address] [address] [facility] [address] [place] [address] 01/09/2025 4:00 PM EDT - 01/09/2025 6:00 PM EDT Surgery [facility] Cardiac [employer] Supervisor [address] [place] [address] Aracely Richard MD PPM battery change 01/09/2025 1:10 PM EDT Ancillary Procedure [facility] Cardiology [facility] [address] [address] 01/09/2025 9:39 AM EDT - 01/09/2025 6:28 PM EDT Hospital Encounter [facility] Intermediate Care Unit [address] [place] [address] Mark Linares MD Flores, Carlos M, MD CHB (complete heart block) ([facility] V24, [facility] V28) (Primary Dx); Acute dyspnea; Palpitations; Pacemaker battery depletion Discharge Disposition: Home or Self Care 01/09/2025 Telephone [facility] [address] [facility] [address] [place] [phone] Aracely Richard MD 01/02/2025 11:00 AM EDT Office Visit [address] [phone] Riley Desir MD Primary hypertension (Primary Dx); Pure hypercholesterolemia ; Encounter for long-term (current) use of medications; Prediabetes; Obesity (BMI 35.0-39.9 without comorbidity); Atrial fibrillation, unspecified type (CMS/HCC V24, CMS/HCC V28); Depression, unspecified depression type; Pacemaker; Severe obesity (BMI 35.0-39.9) with comorbidity (CMS/HCC V24, CMS/HCC V28); Moderate dementia without behavioral disturbance, psychotic disturbance, mood disturbance, or anxiety, unspecified dementia type (CMS/HCC V24, CMS/HCC V28); Epistaxis; Chronic congestion of paranasal sinus 12/07/2024 Telephone [facility] [address] [facility] [address] [place] [phone] Aracely Richard MD from Last 3 Months Immunizations Name Administration [...] PROCEDURE: HISTORICAL TONSILLECTOMY OTHER SURGICAL HISTORY PROCEDURE: HI FCSD US ABLTJ UTERINE LEIOMYOMAT >= 200 CC TISS COLONOSCOPY 2001 PROCEDURE: HISTORICAL COLONOSCOPY; COMMENT: negative ESOPHAGOGASTRODUODENOSCOPY 2001 PROCEDURE: HI ESOPHAGOGASTRODUODENOSCOPY TRANSORAL DIAGNOSTIC; COMMENT: done during colonoscopy COLONOSCOPY 2 PROCEDURE: HISTORICAL COLONOSCOPY; COMMENT: diverticulosis; no polyps ESOPHAGOGASTRODUODENOSCOPY 2 PROCEDURE: HI ESOPHAGOGASTRODUODENOSCOPY TRANSORAL DIAGNOSTIC; COMMENT: normal on ppi rx UPPER GASTROINTESTINAL ENDOSCOPY 6 PROCEDURE: HI UPPER GI ENDOSCOPY PERFORMED; COMMENT: normal on [...] you may not have stable housing? No 01/09/2025 Food Access & Nutrition Answer Date Rec orded Do you have access to a vari ety of food including fruits and vegetables? Yes 01/09/2025 Access to Healthcare Answer Date Record ed Within the last 3 months, ho w many times did you visit the emergency department for your medical care? 0 01/09/2025 Health Literacy Answer Date Recorded How often do you need to hav e someone help you when you read instructions, pamphlets, or other written material from your doctor or pharmacy? Never 01/09/2025 Caregiver: How often do you need to have someone help you when you read instructions, pamphlets, or other written material from your doctor or pharmacy? Not on file 01/09/2025 Financial Risk Answer Date Recorded How hard is it for you to pa y for the very basics like food, housing, medical care, and air conditioning / heating? Not very hard 01/09/2025 Transportation Answer Date Recorded Has the lack of transportati on kept you from meetings, work, or from getting things needed for daily living? No Has the lack of transportati on kept you from medical appointments or from getting medications? No 01/09/2025 Social Isolation Answer Date Recorded How often do you feel lonely or isolated from th ose around you? Never 01/09/2025 Food Risk Answer Date Recorded Within the past 12 months we worried whether our food would run out before we got money to buy more. Never true 01/09/2025 Within the past 12 months th e food we bought just didn't last and we didn't have money to get more. Never true 01/09/2025 Dependent Care Answer Date Recorded Do you need help finding or paying for care for your loved ones. For example, child and adolescent therapist or elderly care for an older adult? No 01/09/2025 Education Answer Date Recorded Do you think completing more education or training, like finishing a GED, going to college, or learning a trade, would be helpful for you? No 01/09/2025 Employment and Income Answer Date Recor ded During the last four weeks, have you been actively looking for work? No 01/09/2025 Living Situation Answer Date Recorded What is your living situation? 0 01/09/2025 Interpersonal Safety Answer Date Record ed Physical Abuse 01/09/2025 Verbal Abuse 01/09/2025 Comments No Sex and Gender Information Value Date Recorded Sex Assigned at Not on file Legal Sex Female 5:04 AM EST Gender Identity Not on file Sexual Orientation Straight 01/09/2025 4: 43 PM EDT Obstetrics History Para Term AB IAB SAB Ectopic Multiple Livin g Live Births 2 2 2 2 Date Outcome GA Total Labor Labor/2nd/3rd Weight Sex Type Anes PTL Jazzy A1 A5 Name Clin Term Term Last Filed Vital Signs Vital Sign Reading Time Taken Comments Blood Pressure 109/83 01/09/2025 4:41 PM EDT Pulse 70 01/09/2025 4:41 PM EDT Temperature 36.7 C (98 F) 01/09/2025 2:32 PM EDT Respiratory Rate 18 01/09/2025 4:41 PM EDT Oxygen Saturation 95% 01/09/2025 4:41 PM EDT Inhaled Oxygen Concentration - - Weight 85.3 kg (188 lb) 01/09/2025 9:53 AM EDT Height 152.4 cm (5') 01/09/2025 9:53 AM EDT Body Mass Index 36.72 01/09/2025 9:53 AM EDT Plan of Treatment Upcoming Encounters Date Type Department Care Team (Late st Contact Info) Description 02/21/2025 9:55 AM EDT Office Visit [facility] Card[facility] [address] [facility] [address] [place] [address] Aracely Richard MD [address] [place] [address] [place] [address] 02/21/2025 11:00 AM EDT Ancillary Procedure [facility] Cardiology [facility] [address] [facility] [address] [place] [address] 03/06/2025 11:30 AM EDT Office Visit Endocrinology - [address] [phone] Rikki Hilton MD [address] [place] [address] 03/07/2025 11:30 AM EDT Office Visit Pulmonolgy - [place] [address] [facility] [address] [place] [phone] Elisa Plascencia MD [address] [place] [phone] 03/20/2025 11:15 AM EDT Appointment Bone Density - [address] [phone] 04/05/2025 11:30 AM EDT Clinical Support Endocrinology - [address] [phone] 07/31/2025 11:30 AM EST Office Visit [facility] - [address] [phone] Riley Desir MD [address] [place] [phone] Health Maintenance Due Date Last Done Comments Medicare Annual Wellness Visit 05/29/2022 Depression Screening 06/20/2024 05/30/2024 COVID-19 Vaccine ( season) 2024 03/06/2024, 02/28/2022, 05/08/2021, Additional history exists Influenza Vaccine (#1) 2025 , 03/22/2023, 02/28/2022, Additional history exists Falls Risk Assessment 01/09/2026 01/09/2025, 024 Hypertension/CHF/CAD Annual BMP Blood Test 01/09/2026 01/09/2025, 01/02/2025, 09/26/2024, Additional history exists Social Influencers of Health Screening 01/09/2026 01/09/2025 DTaP,Tdap,and Td Vaccines (3 - Td or Tdap) 04/21/2027 04/21/2017, 08/09/2006 Cholesterol Screening (Lipid Panel) 01/02/2030 01/02/2025, 06/07/2024, 01/03/2024, Additional history exists Osteoporosis Screening (Bone Density Screening) 03/08/2032 03/08/2022, 05/18/2017 Pneumococcal Vaccine: 50+ Years Completed 04/09/2016, 03/24/2012 Hepatitis C Screening Completed 10/18/2016 RSV Immunization Adult Patients Completed 04/06/2023 Zoster Vaccines Completed 02/07/2024, 04/0 07/2023, 10/18/2016 HIB Vaccines Aged Out No longer eligi [...] patient's age to complete this topic Meningococcal B Vaccine Aged Out No l onger eligible based on patient's age to complete this topic RSV Immunization Patients Under 20 months Aged Out No longer eligible based on patient's age to complete this topic Varicella Vaccines Aged Out No longer eligible based on patient's age to complete this topic Medical Devices Implanted Type Area Brim Welt Sewing Machine Operator Device Identifier Shelf Expiration Date Model / Serial / Lot Bsci-Crm [id number] Implanted:11/18 (Quantity not on file) Cardiac Pacemaker [employer] MGMT [id number] / [id number] / Pcmkr Dev Ess[address] Mri Dr - [id number] - [id number] Implanted:Qty: 1 on 01/09/2025 by Aracely Richard MD at [facility] Cardiac Pacemaker Left: Chest Wall [employer] MGMT [id number] 05/31/2026 L111 / [id number] / Occluder Watchman Pebax Nit Plat Iridium Pet 27mm L75cm 12 - [id number] - [id number] Implanted:Qty: 1 on 11/03/2020 by Aracely Richard MD N/A: Heart [employer] [id number] / [id number] / Description:KEZIA Procedures Procedure Name Priority Date/Time Associated Diagnosis Comments CARDIAC DEVICE CHECK- REMOTE- MURJ Routine 01/22/2025 6:17 PM EDT ECG ANNOTATED 01/10/2025 PPM BATTERY CHANGE Routine 01/09/2025 4:22 PM EDT CHB (complete heart block) (CMS/HCC V24, CMS/HCC V28) LAVENDER - EDTA Routine 01/09/2025 2:40 PM EDT EXTRA TUBES Routine 01/09/2025 2:40 PM EDT PROTHROMBIN TIME WITH INR STAT 01/09/2025 2:40 PM EDT ACTIVATED PARTIAL THROMBOPLASTIN TIME STAT 01/09/2025 2:40 PM EDT CARDIAC DEVICE CHECK- REMOTE- MURJ Routine 01/09/2025 1:06 PM EDT XR CHEST 1 VIEW STAT 01/09/2025 10:32 AM EDT MAGNESIUM STAT Add-on 01/09/2025 10:02 AM EDT COMPLETE BLOOD COUNT Routine 01/09/2025 10:02 AM EDT BASIC METABOLIC PANEL Routine 01/09/2025 10:02 AM EDT ECG 12-LEAD STAT 01/09/2025 9:32 AM EDT LIPID PANEL WITH REFLEX TO DIRECT LDL Routine 01/02/2025 11:34 AM EDT Pure hypercholesterolemia COMPREHENSIVE METABOLIC PANEL Routine 01/02/2025 11:34 AM EDT Encounter for long-term (current) use of medications HEMOGLOBIN A1C Routine 01/02/2025 11:34 AM EDT Prediabetes DXA BONE DENSITY STUDY 1+ SITS AXIAL SKEL Routine 03/08/2022 1:57 PM EDT Other specified disorders of bone density and structure, unspecified site HM HEPATITIS C SCREENING Routine 10/18/2016 from Last 3 Months or Most Recently Relevant to Health Maintenance Results * Cardiac device check - Remote- MURJ (01/22/2025 6:17 PM EDT) Only the most recent of2 resultswithin the time period is included. Date Time Interrogation Session [id number] CV DEVICE CHECK Type Interrogation Session Remote Scheduled CV DEVICE CHECK Implantable Pulse Generator Brim Welt Sewing Machine Operator BSX CV DEVICE CHECK Implantable Pulse Generator Type IPG CV DEVICE CHECK Implantable Pulse Generator Model L111 CV DEVICE CHECK Implantable Pulse Generator Serial Number [id number] CV DEVICE CHECK Implantable Pulse Generator Implant Date 20250109 CV DEVICE CHECK Battery Remaining Percentage 100.00 CV DEVICE CHECK Battery Remaining Longevity 96.0 CV DEVICE CHECK Battery Status Beginning of Service CV DEVICE CHECK Dennis Statistic RA Percent Paced 0.00 CV DEVICE CHECK Dennis Statistic RV Percent Paced 100.00 CV DEVICE CHECK Atrial Tachy Statistic AT/AF [place] Percent 100.00 CV DEVICE CHECK Lead Channel Sensing Intrinsic Amplitude 1.900 CV DEVICE CHECK Lead Channel Setting Sensing Sensitivity 0.25 CV DEVICE CHECK Lead Channel Impedance Value 602 CV DEVICE CHECK Lead Channel RA Pacing Threshold Date 2025-01-16 CV DEVICE CHECK Lead Channel Setting Pacing Amplitude 3.000 CV DEVICE CHECK Lead Channel Setting Pacing Pulse Width 0.4 CV DEVICE CHECK Lead Channel Setting Sensing Sensitivity 0.60 CV DEVICE CHECK Lead Channel Impedance Value 602 CV DEVICE CHECK Lead Channel Pacing Threshold Amplitude 1.100 CV DEVICE CHECK Lead Channel Pacing Threshold Pulse Width 0.4 CV DEVICE CHECK Lead Channel RV Pacing Threshold Date 2025-01-16 CV DEVICE CHECK Lead Channel Setting Pacing Amplitude 1.600 CV DEVICE CHECK Lead Channel Setting Pacing [...] 1 CV DEVICE CHECK Date of Service 2025-02-06 CV DEVICE CHECK Anatomical Region Laterality Modality Device Interroga tion 01/16/2025 9:17 AM EDT Impressions 01/22/2025 3:47 PM EDT Normal Remote: With Events Initial Transmission * Normal Device Function * Events or Alerts: 0 * Battery: Battery is at 100%, 8.00 yrs * Sensing, impedance and thresholds reviewed * Programmed parameters reviewed * Presenting rhythm reviewed * Heart Rate Histograms reviewed *AF 100% *Gen Change Narrative Procedure Note Aracely Richard MD - 01/22/2025 IMPRESSION: Normal Remote: With Events Initial Transmission * Normal Device Function * Events or Alerts: 0 * Battery: Battery is at 100%, 8.00 yrs * Sensing, impedance and thresholds reviewed * Programmed parameters reviewed * Presenting rhythm reviewed * Heart Rate Histograms reviewed *AF 100% *Gen Change us Aracely Richard MD CV IMPLANTABLE CARDIAC DEVICE PROCEDURES Final Result * ECG-Annotated (01/10/2025) us Provider Onbase ECG ORDERABLES Final Result * PPM BATTERY CHANGE (01/09/2025 4:22 PM EDT) Anatomical Region Laterality Modality X-Ray Angiograph y Narrative 01/10/2025 8:12 AM EDT Successful dual-chamber permanent pacemaker generator replacement Study Details Pacemaker battery depletion Clinical Background 79-year-old female who has chronic atrial flutter with a AV node ablation and permanent pacemaker that has reached end-of-life and has reverted to unipolar so that she is having some noncapture beats and was brought in emergently for generator replacement Procedure Details After attainment informed consent the patient was brought to the EP laboratory in the fasting state was moderately sedated by nursing staff using small doses of Versed and fentanyl. Please see nursing flowsheet for details of doses and hemodynamics. After the usual sterile prep local anesthesia with 1% lidocaine I made a 3 cm incision over the left chest. There is blunt dissection to access the pocket remove the device and freed up the leads. I expanded the pocket medially due to the patient's feeling that the lateral aspect of the device was pushing against the shoulder at times. I then took the leads from the old device and placed him into the header of the new device which was placed back into the pre-existing pocket. The pocket was irrigated with vancomycin solution prior to closure with 2.0 v-loc suture and surgical glue. There was minimal blood loss and no immediate complications. After device interrogation and adjusting the leads the patient was sent back to recovery in stable condition and no immediate complications. Margaux Huff NP CV ELECTROPHYSIOLOGY PROCE MARQUITA Final Result * Lavender tube (01/09/2025 2:40 PM EDT) Extra Tube Hold for add-ons. 01/09/2025 4:01 PM EDT [facility] Comment:Auto resulted. Blood Venous blood specimen / Unknown 01/09/2025 2:40 PM EDT 01/09/2025 2:47 PM EDT us Jw Alas MD LAB BLOOD ORDERABLES Final Re sult Performing Organization Address [facility]/ZIP Co de Phone Number [facility] [address] [place] [address], [place] [phone] * APTT (01/09/2025 2:40 PM EDT) aPTT 33.2 24.1 - 39.3 sec LAB COAGULATION METHOD 01/09/2025 3:01 PM EDT [facility] Blood Venous blood specimen / Unknown Venipuncture / Unknown 01/09/2025 2:40 PM EDT 01/09/2025 2:46 PM EDT us Jw Alas MD LAB BLOOD ORDERABLES Final Re sult Performing Organization Address [facility]/ZIP Co de Phone Number [facility] [address] [place] [address], [place] [phone] * Prothrombin time with INR (01/09/2025 2:40 PM EDT) Protime 13.3 10.6 - 13.9 sec LAB COAGULATION METHOD 01/09/2025 3:01 PM EDT [facility] INR 1.1 LAB COAGULATION METHOD 01/09/2025 3:01 PM EDT [facility] Blood Venous blood specimen / Unknown Venipuncture / Unknown 01/09/2025 2:40 PM EDT 01/09/2025 2:46 PM EDT us Jw Alas MD LAB BLOOD ORDERABLES Final Re sult Performing Organization Address City/[facility]/ZIP Co de Phone Number [facility] [address] [place] [address], [place] [phone] * XR Chest 1 View (01/09/2025 10:32 AM EDT) Anatomical Region Laterality Modality Body Radiographic Anju ging 01/09/2025 10:4 3 AM EDT Impressions 01/09/2025 10:57 AM EDT FINDINGS/IMPRESSION: Lungs are clear. No pleural effusion or pneumothorax. Cardiac silhouette is enlarged with left chest wall pacemaker in place and leads unchanged. Left atrial appendage occlusion device noted. Degenerative changes seen throughout the bones. -------- FINAL REPORT -------- Dictated By: JUNAID AGEE Dictated Date: 01/09/2025 10:43 ET Assigned Physician: JUNAID AGEE Reviewed and Electronically Signed By: JUNAID AGEE Signed Date: 01/09/2025 10:57 ET Workstation ID: [id number] Transcribed By: Self Edit Transcribed Date: 01/09/2025 10:43 ET Narrative 01/09/2025 10:57 AM EDT XR CHEST 1 VIEW INDICATION: Dyspnea TECHNIQUE: XR CHEST 1 VIEW COMPARISON: 05/11/2021 Procedure Note Junaid Agee MD - 01/09/2025 XR CHEST 1 VIEW INDICATION: Dyspnea TECHNIQUE: XR CHEST 1 VIEW COMPARISON: 05/11/2021 IMPRESSION: FINDINGS/IMPRESSION: Lungs are clear. No pleural effusion orpneumothorax. Cardiac silhouette is enlarged with left chest wallpacemaker in place and leads unchanged. Left atrial appendage occlusiondevice noted. Degenerative changes seen throughout the bones. -------- FINAL REPORT -------- Dictated By: JUNAID AGEE Dictated Date: 01/09/2025 10:43 ET Assigned Physician: JUNAID AGEE Reviewed and Electronically Signed By: JUNAID AGEE Signed Date: 01/09/2025 10:57 ET Workstation ID: [id number] Transcribed By: Self Edit Transcribed Date: 01/09/2025 10:43 ET Mark Linares MD IMG XR PROCEDURES Final Res ult * (ABNORMAL) CBC (01/09/2025 10:02 AM EDT) [facility] WBC 5.0 4.8 - 10.8 K/mcL LAB HEMETOLOGY METHOD 01/09/2025 11:20 AM [facility] RBC 3.50(L) 3.80 - 4.80 M/mcL LAB HEMETOLOGY METHOD 01/09/2025 11:20 AM [facility] Hemoglobin 10.8(L) 11.5 - 16.0 g/dL LAB HEMETOLOGY METHOD 01/09/2025 11:20 AM [facility] Hematocrit 32.0(L) 35.0 - 47.0 % LAB HEMETOLOGY METHOD 01/09/2025 11:20 AM [facility] MCV 90.4 79.0 - 98.0 FL LAB HEMETOLOGY METHOD 01/09/2025 11:20 AM [facility] MCH 30.5 27.0 - 32.0 pcg LAB HEMETOLOGY METHOD 01/09/2025 11:20 AM [facility] MCHC 33.8 32.0 - 37.0 g/dL LAB HEMETOLOGY METHOD 01/09/2025 11:20 AM [facility] RDW 14.6 11.0 - 15.0 % LAB HEMETOLOGY METHOD 01/09/2025 11:20 AM [facility] Platelets 173 130 - 400 K/mcL LAB HEMETOLOGY METHOD 01/09/2025 11:20 AM [facility] MPV 11.0 7.0 - 11.0 FL LAB HEMETOLOGY METHOD 01/09/2025 11:20 AM [facility] NRBC 0.0 <1.0 % LAB HEMETOLOGY METHOD 01/09/2025 11:20 AM [facility] NRBC Absolute 0.00 <0.10 K/mcL LAB HEMETOLOGY METHOD 01/09/2025 11:20 AM EDT [facility] Blood Venous blood specimen / Unknown Venipuncture / Unknown 01/09/2025 10:02 AM EDT 01/09/2025 11:06 AM EDT Margaux Huff FIELD RING ASSEMBLER LAB BLOOD ORDERABLES Final Result Performing Organization Address [facility]/ZIP Co de Phone Number [facility] [address] [place] [address], [place] [phone] * Magnesium (01/09/2025 10:02 AM EDT) Pathologist [facility] Magnesium 1.9 1.9 - 2.6 mg/dL LAB CHEMISTRY METHOD 01/09/2025 11:45 AM EDT [facility] Comment:Hemolysis present Blood Venous blood specimen / Unknown Venipuncture / Unknown 01/09/2025 10:02 AM EDT 01/09/2025 11:06 AM EDT Mark Linares MD LAB BLOOD ORDERABLES Final Result Performing Organization Address [facility] Co de Phone Number [facility] [address] [place] [address], [place] [phone] * (ABNORMAL) Basic metabolic panel (01/09/2025 10:02 AM EDT) Sodium 136 133 - 145 mmol/L LAB CHEMISTRY METHOD 01/09/2025 11:45 AM EDT [facility] Potassium 4.6 3.5 - 5.5 mmol/L LAB CHEMISTRY METHOD 01/09/2025 11:45 AM EDT [facility] Comment:Hemolysis present Chloride 103 96 - 110 mmol/L LAB CHEMISTRY METHOD 01/09/2025 11:45 AM EDT [facility] CO2 25 21 - 32 mmol/L LAB CHEMISTRY METHOD 01/09/2025 11:45 AM EDT [facility] Anion Gap 8 3 - 11 LAB CHEMISTRY METHOD 01/09/2025 11:45 AM [facility] Glucose 126(H) 70 - 100 mg/dL LAB CHEMISTRY METHOD 01/09/2025 11:45 AM [facility] BUN 15 5 - 25 mg/dL LAB CHEMISTRY METHOD 01/09/2025 11:45 AM [facility] Creatinine 0.96 0.50 - 1.10 mg/dL LAB CHEMISTRY METHOD 01/09/2025 11:45 AM [facility] eGFR 61 >=60 mL/min/1. 73m2 LAB CHEMISTRY METHOD 01/09/2025 11:45 AM [facility] Comment:Calculation based on the Chronic Kidney Disease Epidemiology Collaboration (CKD-EPI) equation refit without adjustment for race. BUN/Creatinine Ratio 15.6 LAB CHEMISTRY METHOD 01/09/2025 11:45 AM [facility] Calcium 9.4 8.5 - 10.5 mg/dL LAB CHEMISTRY METHOD 01/09/2025 11:45 AM [facility] Blood Venous blood specimen / Unknown Venipuncture / Unknown 01/09/2025 10:02 AM EDT 01/09/2025 11:06 AM EDT us Margaux Huff FIELD RING ASSEMBLER LAB BLOOD ORDERABLES Final Result [facility] [address] [place] [address], * 12-Lead ECG (01/09/2025 9:32 AM EDT) Ventricular Rate ECG 72 BPM GEMUSE Atrial Rate 72 BPM GEMUSE QRS Duration 198 ms GEMUSE Q-T Interval 478 ms GEMUSE QTc 523 ms GEMUSE R Eden 143 degrees GEMUSE T [place] 88 degrees GEMUSE ECG Interpretation Ventricular -paced rhythm Abnormal ECG When compared with ECG of 19-SEP-2018 17:24, unipolar pacing spikes are now detected Confirmed by MD RYAN, ARACELY ([id number]) on 01/09/2025 4:28:29 PM GEMUSE 01/09/2025 9:3 2 AM EDT 01/09/2025 4:28 PM EDT us Mark Linares MD ECG ORDERABLES Final Resul t GEMUSE * Lipid panel with reflex to direct LDL (01/02/2025 11:34 AM EDT) Cholesterol 192 0 - 200 mg/dL LAB CHEMISTRY METHOD 01/02/2025 4:09 PM EDT [facility] Triglycerides 144 0 - 150 mg/dL LAB CHEMISTRY METHOD 01/02/2025 4:09 PM EDT [facility] HDL 98 >=40 mg/dL LAB CHEMISTRY METHOD 01/02/2025 4:09 PM EDT [facility] LDL Calculated 65 0 - 100 mg/dL LAB CHEMISTRY METHOD 01/02/2025 4:09 PM EDT [facility] VLDL Cholesterol Mauro 28.8 mg/dL LAB CHEMISTRY METHOD 01/02/2025 4:09 PM EDT [facility] Non HDL Chol. (LDL+VLDL) 94 <145 mg/dL LAB CHEMISTRY METHOD 01/02/2025 4:09 PM EDT [facility] Chol/HDL Ratio 2.0 0.0 - 4.4 LAB CHEMISTRY METHOD 01/02/2025 4:09 PM EDT [facility] Blood Venous blood specimen / Unknown Venipuncture / Unknown 01/02/2025 11:34 AM EDT 01/02/2025 11:34 AM EDT us Riley Desir MD LAB BLOOD ORDERABLES Final Resu lt Performing Organization Address [facility]/ZIP Co de Phone Number [facility] [address] [place] [address], [place] [phone] * Hemoglobin A1c (01/02/2025 11:34 AM EDT) [facility] Hemoglobin A1C 5.5 <6.5 % LAB CHEMISTRY METHOD 01/02/2025 5:12 PM EDT [facility] Mean Bld Glu Estim. 111 mg/dL LAB CHEMISTRY METHOD 01/02/2025 5:12 PM EDT [facility] Blood Venous blood specimen / Unknown Venipuncture / Unknown 01/02/2025 11:34 AM EDT 01/02/2025 11:34 AM EDT Riley Desir MD LAB BLOOD ORDERABLES Final Resu lt Performing Organization Address [facility]/ZIP Co de Phone Number [facility] [address] [place] [address], [place] [phone] * Comprehensive metabolic panel (01/02/2025 11:34 AM EDT) [facility] Sodium 135 133 - 145 mmol/L LAB CHEMISTRY METHOD 01/02/2025 4:07 PM EDT [facility] Potassium 4.6 3.5 - 5.5 mmol/L LAB CHEMISTRY METHOD 01/02/2025 4:07 PM EDT [facility] Chloride 102 96 - 110 mmol/L LAB CHEMISTRY METHOD 01/02/2025 4:07 PM EDT [facility] CO2 27 21 - 32 mmol/L LAB CHEMISTRY METHOD 01/02/2025 4:07 PM EDT [facility] Anion Gap 6 3 - 11 LAB CHEMISTRY METHOD 01/02/2025 4:07 PM [facility] Glucose 91 70 - 100 mg/dL LAB CHEMISTRY METHOD 01/02/2025 4:07 PM EDT [facility] BUN 14 5 - 25 mg/dL LAB CHEMISTRY METHOD 01/02/2025 4:07 PM [facility] Creatinine 0.88 0.50 - 1.10 mg/dL LAB CHEMISTRY METHOD 01/02/2025 4:07 PM [facility] eGFR 67 >=60 mL/min/1. 73m2 LAB CHEMISTRY METHOD 01/02/2025 4:07 PM [facility] Comment:Calculation based on the Chronic Kidney Disease Epidemiology Collaboration (CKD-EPI) equation refit without adjustment for race. BUN/Creatinine Ratio 15.9 LAB CHEMISTRY METHOD 01/02/2025 4:07 PM [facility] Calcium 9.6 8.5 - 10.5 mg/dL LAB CHEMISTRY METHOD 01/02/2025 4:07 PM [facility] AST (SGOT) 20 10 - 42 unit/L LAB CHEMISTRY METHOD 01/02/2025 4:07 PM [facility] ALT (SGPT) 29 10 - 60 unit/L LAB CHEMISTRY METHOD 01/02/2025 4:07 PM [facility] Alkaline Phosphatase 60 42 - 121 unit/L LAB CHEMISTRY METHOD 01/02/2025 4:07 PM [facility] Total Protein 7.6 6.0 - 8.0 g/dL LAB CHEMISTRY METHOD 01/02/2025 4:07 PM [facility] Albumin 4.6 3.2 - 5.0 g/dL LAB CHEMISTRY METHOD 01/02/2025 4:07 PM [facility] Total Bilirubin 0.6 0.0 - 1.4 mg/dL LAB CHEMISTRY METHOD 01/02/2025 4:07 PM [facility] Blood Venous blood specimen / Unknown Venipuncture / Unknown 01/02/2025 11:34 AM EDT 01/02/2025 11:34 AM EDT us Riley Desir MD LAB BLOOD ORDERABLES Final Resu lt [facility] [address] [place] [address], * DXA BONE DENSITY STUDY 1+ SITS [...] change in bone mineral density compared with 2016. 17.7% increase in bone mineral density compared with 2011, statistically significant at the 95% confidence level Left hip: 3.5% increase in bone mineral density compared with 2016 and 6.9% increase compared with 2011, both statistically significant at the 95% confidence level. Lateral survey view of the thoracolumbar spine shows no significant compression deformities of the visualized vertebral elements. IMPRESSION: IMPRESSION: Osteoporosis by WHO criteria. The [facility] Department of Internal Medicine recommends using National [...] alternative screening schedule based on donald Taylor., [facility] July 08, 2011 for patients [...] in bone mineral density compared with 2016 and6.9% increase compared with 2011, both statistically significant at the 95% confidence level. Lateral survey view of the thoracolumbar spine shows no significantcompression deformities of the visualized vertebral elements. IMPRESSION: IMPRESSION: Osteoporosis by WHO criteria. The [facility] Department of Internal Medicine recommendsusing National Osteoporosis [...] FRAX. Optional alternative screening schedule based on castro Taylor al., NEJMJanuary 2011 for patients with osteopenia (based on hip BMD T-score) is as follows: * advanced osteopenia (T scores -2.00 to -2.49), BMD testing every year * moderate osteopenia (T scores -1.50 to -1.99), BMD testing every 5years mild osteopenia or normal BMD (T scores -1.50 and higher), BMD testingevery 15 years Philomena TANG IMG DXA PROCEDURES Final Resu lt * Hepatitis C Screening (10/18/2016) [facility] Hepatitis C Screening abstracted Historical Provider MD HEALTH MAINTENANCE Final Result from Last 3 Months or Most Recently Relevant to Health Maintenance Insurance [employer] - [place] MEDICARE ADVANTAGE Advance Directives * Full Code - Default (Latest Code Status on File) Date Activated Date Inactivated Comments 01/09/2025 12:08 PM 01/09/2025 8:28 PM This is ord er is used when code status has not been discussed with the patient, or code status is otherwise unknown/unconfirmed To update the patient's code status, place a code status order. Do not modify or discontinue any currently active code status orders. Care Teams Storage Solutions Architect Relationship Specialty Start Date End Date iRley Desir MD PCP - General 07/19/05
--- OUTSIDE RECORDS SUMMARY | 2025-02-13 12:39 | XMS_ITS | Clinical Summary ---
Author Organization [facility] Address [address] [place] [address] Care Team Providers Care Art Instructor Name Role Phone Riley Desir MD Primary Care Provider [phone] Allergies Active Allergy Reactions Criticality Noted Date [...] 60 11/04/2020 9:23 AM EDT Temperature 36.8 C (98.3 F) 11/04/2020 9:23 AM EDT Respiratory Rate 23 11/04/2020 9:23 AM EDT [...] season) 2024 09/18/2020, 08/18/2020 Influenza Vaccine (#1) 2025 0, 02/27/2019, 03/29/2017, Additional history exists Pneumococcal Vaccine Completed 04/09/2016, 03/24/20 12 Hepatitis B Vaccines Aged Out No long er eligible based on patient's age to complete this topic RSV Ped < 20 months Aged Out No longe r eligible based on patient's age to complete this topic Medical Devices Implanted Type Area Desizing Machine Operator Device Identifier Shelf Expiration Date Model / Serial / Lot Occluder Watchman Pebax Nit Plat Iridium Pet 27mm L75cm Od12 - [id number] - [id number] Implanted:Qty: 1 on 11/03/[place] [facility] [place] Heart [employer] [id number] / [id number] / Description:KEZIA Explanted Type Area Desizing Machine Operator Device Identifier Shelf Expiration Date Model / Serial / Lot Occluder Watchman Pebax Nit Plat Iridium Pet 27mm L75cm Od12 - [id number] - [id number] Explanted:Qty: 1 on 11/03/2020 [place] [facility] [place]: Heart [employer] [id number] 0 [id number] / Advance Directives For more information, please contact: [phone] Latest Code Status on File Code Status [...] way: discussion with patient . Care Teams Art Instructor Relationship Specialty Start Date End Date Riley Desir MD PCP - General Internal Medicine 11/03/20
--- OUTSIDE RECORDS SUMMARY | 2025-02-13 12:39 | XMS_ITS ---
Author Organization [address] Address [address] [place] [address] Phone Care Team Providers Care Residential Sales Rep Name Role Phone Riley Desir MD Primary Care Provider [phone] Transitional Care Management Status:Closed (Closed) Start date:01/09/2025 Enrollment date:01/09/2025 Enrollment reason:Identified using hospital discharge data End date:02/08/2025 Close reason:Completed program Continued Care and Services Coordination
== END 2025-02-13 12:11 | disposition home or self-care (01) ==
LOC: HO.HSM 11:43
PROVIDERS: PCP Internal Medicine; Referring Provider Internal Medicine; Visit Provider Psychiatry & Neurology Neurology
DX: G30.1 Alzheimer's disease with late onset (principal); F02.B4 Dementia in other diseases classified elsewhere, moderate, with anxiety; I67.89 Other cerebrovascular disease; F03.90 Unspecified dementia, unspecified severity, without behavioral disturbance, psychotic disturbance, mood disturbance, and anxiety
CPT/HCPCS: 99214

== ENCOUNTER → 2025-02-13 11:43 | Outpatient (BNVA) | payer MEDICARE, SELFPAY | PROVIDERS: PCP Internal Medicine; Referring Provider Internal Medicine; Visit Provider Psychiatry & Neurology Neurology | DX: G30.1 Alzheimer's disease with late onset (principal); F02.B4 Dementia in other diseases classified elsewhere, moderate, with anxiety; I67.89 Other cerebrovascular disease; F41.9 Anxiety disorder, unspecified; F32.A Depression, unspecified | CPT/HCPCS: 99212 ==

== ENCOUNTER 2025-05-14 11:48 | Outpatient (AMB) | payer MEDICARE, SELFPAY ==
--- NOTE | 2025-05-14 11:55 | MHC.OFFVIS ---
Intake Visit Reasons: 3 m for dementia Allergies No Known Allergies Allergy (Verified 07/21/24 16:50) HPI Comments Details: 79 years old woman with atrial fibrillation, with a cardiac pacemaker and Watchman device, chronic depression, and with multifactorial dementia. MRI of brain revealed moderate diffuse cerebral atrophy and moderate microvascular ischemic changes. She is presenting with concerns regarding dementia progression and associated symptoms. Diagnosed with Alzheimer's disease and dementia following an MRI a year ago, she reports worsening symptoms such as impaired decision-making, focus issues, and increased frustration due to these cognitive changes. Hearing loss is a significant concern, with a notable 30% deficit on one side accompanied by a sensation of ear blockage and crackling sounds, which adds to her imbalance and frustration. The patient has used sertraline and bupropion to manage underlying anxiety and mood disturbances, which she deems essential. Additionally, she takes donepezil for cognitive support and is considering memantine to address memory and behavioral issues. Her history includes surgery for nasal polyp removal and a pacemaker, complicating further MRIs for the head or brain, which are critical for evaluating her auditory and balance complaints. [facility] Medical History (Updated 05/14/25 @ 12:09 by Rebeca Doan MD) Cerebral microvascular disease Alzheimer dementia Mild dementia Pacemaker HTN (hypertension) HLD (hyperlipidemia) Asthma Afib Surgical History S/P hip replacement Social History Household Members: Spouse Housing: House Do you presently have visiting nurse or other home services: No Patient Tobacco Use Status: Never used Tobacco service: No Review of Systems Narrative - Neurologic: Reports difficulty focusing, decision-making issues, increased irritability, imbalance - Auditory: Reports hearing loss (30% reduction on one side), crackling sounds, feeling of ear blockage, head pressure sensation - Mood: Reports frustration, anxiety, uses medication for management Physical Exam Neuro Other: Mental Status: Alert and oriented to person, place, and time. Normal attention. Normal spontaneous speech, fluency, and comprehension. Cranial Nerves: CN II: Visual marvin full to confrontation, visual acuity intact. CN III, IV, : Pupils equal, round, reactive to light and accommodation. Extraocular movements are normal. CN V: Facial sensation is normal. CN VII: Facial movements symmetrical. CN VIII: Hearing intact to bedside conversation is normal. CN IX, X: Palate elevates symmetrically. CN XI: Shoulder shrug and head turn symmetrical. CN XII: Tongue midline without atrophy or fasciculations. Extrapyramidal: Full facial expressions and blinking. No rigidity. Movements are appropriate with no tremor or abnormality. Speech: Normal; no dysarthria or tremor. Assessment & Plan Assessment & Plan (1) Alzheimer dementia: Comment: MRI brain WWO at [facility] in Apr 2025: Mod atrophy and some MVD MRI brain WO at [facility] [place] in November 2023: Mod diff atrophy, mod MVD. Code(s): G30.9 - Alzheimer's disease, unspecified; F02.80 - Dementia in other diseases classified elsewhere, unspecified severity, without behavioral disturbance, psychotic disturbance, mood disturbance, and anxiety Category: Medical Qualifiers: Alzheimer's disease onset: late onset Dementia severity: moderate Dementia behavioral or psychological symptom: with anxiety Qualified Code(s): G30.1 - Alzheimer's disease with late onset; F02.B4 - Dementia in other diseases classified elsewhere, moderate, with anxiety (2) Cerebral microvascular disease: Code(s): I67.89 - Other cerebrovascular disease Category: Medical (3) Multifactorial dementia: Code(s): F03.90 - Unspecified dementia, unspecified severity, without behavioral disturbance, psychotic disturbance, mood disturbance, and anxiety Category: Medical (4) Migraine without aura: Code(s): G43.009 - Migraine without aura, not intractable, without status migrainosus Category: Medical Qualifiers: Status migrainosus presence: without status migrainosus Intractability: not intractable Qualified Code(s): G43.009 - Migraine without aura, not intractable, without status migrainosus Plan Impression and recommendations: a: Moderately severe multifactorial (degenerative plus microvascular disease) dementia with underlying chronic anxiety and depression Rec: a: Donepezil 10mg daily b: Memantine 5mg bid c: Med for headaches can be prescribed but for now she was not interested Coding Level of Care Code Est Pt Level 4 (00817) Diagnoses Moderate late onset Alzheimer's dementia with anxiety G30.1; F02.B4 Alzheimer's disease onset: late onset Dementia severity: moderate Dementia behavioral or psychological symptom: with anxiety Cerebral microvascular disease I67.89 Multifactorial dementia F03.90 Migraine without aura and without status migrainosus, not intractable G43.009 Status migrainosus presence: without status migrainosus Intractability: not intractable
--- OUTSIDE RECORDS SUMMARY | 2025-05-14 15:35 | XMS_ITS | Clinical Summary ---
Author Organization [facility] Address [address] [place] [address] Care Team Providers Care Vocal Music Instructor Name Role Phone Riley Desir MD Primary Care Provider [phone] Allergies Active Allergy Reactions Criticality Noted Date [...] series) 2021 COVID-19 Vaccine (3 - season) 2025 09/18/2020, 08/18/2020 Influenza Vaccine (#1) 2025 0, 02/27/2019, 03/29/2017, Additional history exists Pneumococcal Vaccine Completed 04/09/2016, 03/24/20 12 Hepatitis B Vaccines Aged Out No long er eligible based on patient's age to complete this topic RSV Ped < 20 months Aged Out No longe r eligible based on patient's age to complete this topic Medical Devices Implanted Type Area Renderer Device Identifier Shelf Expiration Date Model / Serial / Lot Occluder Watchman Pebax Nit Plat Iridium Pet 27mm L75cm Od12 - [id number] - [id number] Implanted:Qty: 1 on 11/03/2020 by Awais Richard MD at [facility] [place] and Med N/A: Heart [employer] [id number] / [id number] / Description:KEZIA Explanted Type Area Renderer Device Identifier Shelf Expiration Date Model / Serial / Lot Occluder Watchman Pebax Nit Plat Iridium Pet 27mm L75cm Od12 - [id number] - [id number] Explanted:Qty: 1 on 11/03/2020 by Awais Richard MD at [facility] [place] and Med N/A: Heart [employer] [id number] 0 [id number] / Advance Directives For more information, please contact: [phone] Latest Code Status on File Code Status [...] way: discussion with patient . Care Teams Vocal Music Instructor Relationship Specialty Start Date End Date Riley Desir MD PCP - General Internal Medicine 11/03/20
== END 2025-05-14 12:14 | disposition home or self-care (01) ==
LOC: HO.HSM 11:48
PROVIDERS: PCP Internal Medicine; Visit Provider Psychiatry & Neurology Neurology
DX: G30.1 Alzheimer's disease with late onset (principal); F02.B4 Dementia in other diseases classified elsewhere, moderate, with anxiety; I67.89 Other cerebrovascular disease; F03.90 Unspecified dementia, unspecified severity, without behavioral disturbance, psychotic disturbance, mood disturbance, and anxiety; G43.009 Migraine without aura, not intractable, without status migrainosus
CPT/HCPCS: 99214

== ENCOUNTER → 2025-05-14 11:48 | Outpatient (BNVA) | payer MEDICARE, SELFPAY | PROVIDERS: PCP Internal Medicine; Visit Provider Psychiatry & Neurology Neurology | DX: G30.1 Alzheimer's disease with late onset (principal); F02.B4 Dementia in other diseases classified elsewhere, moderate, with anxiety; I67.89 Other cerebrovascular disease; G43.009 Migraine without aura, not intractable, without status migrainosus | CPT/HCPCS: 99212 ==